=== PATIENT | female | born 1965 | race Caucasian/White ===

== ENCOUNTER 2019-02-03 18:48 | Observation (INO) ==
--- NOTE | 2019-02-03 19:14 | Emergency Department Note ---
Disposition Clinical Impression: Chest pain Qualifiers: Chest pain type: unspecified Qualified Code(s): R07.9 - Chest pain, unspecified Disposition: Admitted As Inpatient Chest Pain HPI - General Chief Complaint: ED Chest Pain Stated Complaint: chest pain Time Seen by Provider: 02/03/19 18:54 Source: patient Mode of arrival: wheelchair Limitations: no limitations Vital Signs Reviewed: Yes Nursing Notes Reviewed: Yes - History of Present Illness HPI Narrative: Patient presents to the ED with the chief complaint of chest pain and shortness breath. Patient has history of one NM with stenting past as well as congestive heart failure. She does have pacemaker and is on Coumadin, but she does not know why. States she has had increasing shortness of breath over the last week associated with orthopnea. She has both sharp pleuritic precordial chest pain as well as a heavy, dull, pressure-like sensation in the left side of her chest that radiates into her left arm. States this does not feel like her previous heart attack, but does feel like her previous episodes of CHF. No history of DVT or PE. Denies any history of malignancy. Has had a previous CVA, when she had her heart attack. She also has a vagal nerve stimulator. Denies any abdominal pain. Chest had some nausea but no vomiting or diarrhea. No new rashes. Severity scale (1-10): 0 - Related Data Home Medications Medication Instructions Recorded Confirmed Albuterol Neb [Proventil Neb] 2.5 mg IH Q4HR PRN 07/02/15 08/02/17 Amiodarone HCl [Pacerone] 200 mg PO DAILY 07/02/15 08/02/17 Azelastine HCl 137 mcg NS BID 07/02/15 08/02/17 Clopidogrel [Plavix] 75 mg PO DAILY 07/02/15 08/02/17 EPINEPHrine [Epipen 2-Pietro] 0.3 mg SQ ONCE PRN 07/02/15 08/02/17 Fluticasone Propionate Nasal 1 spray NS BID 07/02/15 08/02/17 [Flonase] Furosemide [Lasix] 80 mg PO BID 07/02/15 08/02/17 Gabapentin [Neurontin] 600 mg PO TID 07/02/15 08/02/17 Insulin Regular U-500 [HumuLIN R 25 - 200 unit SQ TID PRN 07/02/15 08/02/17 U-500] Ipratropium Neb [Atrovent Neb] 0.5 mg IH Q8H PRN 07/02/15 08/02/17 LevETIRAcetam [Keppra] 1,500 tab PO QAM 07/02/15 08/02/17 LevETIRAcetam [Keppra] 2,000 mg PO HS 07/02/15 08/02/17 Losartan Potassium 50 mg PO HS 07/02/15 08/02/17 Metoprolol Succinate [Toprol Xl] 100 mg PO DAILY 07/02/15 08/02/17 Nitroglycerin [Nitrostat] 0.4 mg SL Q5M PRN 07/02/15 08/02/17 OxyCODONE Immed Rel [Roxicodone 10 10 mg PO 5XD 07/02/15 08/02/17 MG] Pravastatin Sodium [Pravachol] 40 mg PO HS 07/02/15 08/02/17 Spironolactone 25 mg PO DAILY 07/02/15 08/02/17 Warfarin [Coumadin] 3 mg PO Q48H 07/02/15 08/02/17 Warfarin [Coumadin] 1.5 mg PO Q48H 10/15/15 08/02/17 Budesonide/Formoterol 160/4.5 2 puff IH BIDR 08/01/17 08/02/17 [Symbicort 160/4.5] Calcitriol [Rocaltrol] 0.25 mcg PO DAILY 08/01/17 08/02/17 Nitrofurantoin [Macrodantin] 50 mg PO HS 08/01/17 08/02/17 Venlafaxine [Effexor] 75 mg PO BID 08/01/17 08/02/17 Previous Rx's Medication Instructions Recorded Loratadine [Claritin] 10 mg PO DAILY #30 tablet 09/20/15 Insulin DETEMIR [Levemir Flextouch] 40 unit SQ HS #1 insuln.pen 08/04/17 levoFLOXacin [Levaquin] 500 mg PO DAILY #10 tablet 08/04/17 Allergies Allergy/AdvReac Type Severity Reaction Status Date / Time aspirin [ASA] Allergy Severe Difficulty Verified 01/01/17 04:43 Breathing Penicillins Allergy Severe Difficulty Verified 01/01/17 04:43 Swallowing nicotine [From Nicoderm CQ] Allergy Mild Rash Verified 01/01/17 04:43 Sulfa (Sulfonamide Allergy Mild Hives Verified 01/01/17 04:43 Antibiotics) sulfamethoxazole Allergy Mild Hives Verified 01/01/17 04:43 [From Bactrim] trimethoprim [From Bactrim] Allergy Mild Hives Verified 01/01/17 04:43 azithromycin AdvReac Mild Palpitation Verified 01/01/17 04:43 s cephalexin [From Keflex] AdvReac Mild Nausea Verified 01/01/17 04:43 vitamin k AdvReac Mild Palpitation Uncoded 07/02/15 14:31 s Review of Systems: As reviewed in the HPI. All other systems reviewed are negative or normal. All systems ED: reviewed and negative except as stated. Review of Systems: As Per HPI Constitutional: Denies: fever Cardiovascular: Reports: chest pain Chest Pain PMH - Past Medical History Medical history: Reports: DVT, diabetes, myocardial infarction, renal disease, seizures Surgical history: Reports: angioplasty/stent, appendectomy, breast surgery, cholecystectomy, orthopedic, other, pacemaker/AICD Psychiatric history: Reports: anxiety, depression RISK REDUCTION COUNSELOR history: Reports: no RISK REDUCTION COUNSELOR history - Social History Smoking Status: Current every day smoker Alcohol use: Reports: none Drug use: Reports: none Physical Exam CONSTITUTIONAL: [Chronically ill appearing, alert and in no acute distress, morbidly obese] EYES: [EOMI, clear conjunctiva, PERRLA] HENT: [Normocephalic, atraumatic, moist mucus membranes, normal oropharynx] NECK: [normal inspection, full ROM, trachea midline, no obvious swelling] PULMONARY: [No respiratory distress, diminished breath sounds bilateral bases, felt to be limited by body habitus, no obvious rales or wheezing CARDIOVASCULAR: [regular rate, regular rhythm, normal heart sounds, no murmurs, distal extremities are warm and well perfused] GASTROINSTESTINAL: [soft, non-tender, non-rigid, non-distended, no guarding, no rebound, normal bowel sounds] GENITOURINARY/RECTAL: [deferred] NEUROLOGIC: [Alert, oriented x3, normal speech] EXTREMITIES: [+ pedal edema, normal capillary refill] MUSCULOSKELETAL: [no gross deformities, atraumatic] SKIN: [No cyanosis, no diaphoresis, normal color, warm, no rash] PSYCHIATRIC: [normal mood and affect] - General Limitations: no limitations General appearance: alert Course Course Narrative: Patient denies any history of DVT, however, her chart. States otherwise. We will get cardiac workup and admit - Reevaluation(s) Reevaluation #1: Patient appears to have a congestive heart failure exacerbation based on her symptoms. Her BNP is as high as it has ever been. However, I do suspect it is probably falsely low due to her obesity. We did give her IV diuresis, as her oral medication has not been helping. Patient admitted the hospitalist service for further workup Vital Signs Temperature 97.9 F 02/03/19 18:58 Pulse Rate 77 02/03/19 18:58 Respiratory Rate 18 02/03/19 18:58 Blood Pressure 137/67 02/03/19 18:58 O2 Sat by Pulse Oximetry 99 02/03/19 18:58 Temperature 97.9 F 02/03/19 18:58 Pulse Rate 72 02/03/19 21:53 Respiratory Rate 18 02/03/19 21:53 Blood Pressure 146/75 02/03/19 21:53 O2 Sat by Pulse Oximetry 98 02/03/19 21:53 Oxygen Delivery Oxygen Delivery Nasal Cannula Chest Pain - Medical Records Medical records reviewed: Yes I reviewed the patient's medical records. - Lab Data Lab results reviewed: Yes I reviewed the patient's lab results. Result diagrams: 02/03/19 19:09 02/03/19 19:09 Lab Results 02/03/19 02/03/19 02/03/19 Range/Units 18:59 18:59 19:09 WBC 7.8 (4.3-11.1) K/mcL RBC 5.73 H (3.82-4.97) M/mcL Hgb 12.9 (11.5-15.4) g/dL Hct 43.9 (35.3-44.9) % MCV 76.6 L (83.0-100.0) fL MCH 22.5 L (28.0-33.3) pg MCHC 29.4 L (31.6-35.5) g/dL RDW 20.4 H (11.5-14.5) % Plt Count 258 (140-400) K/mcL MPV 10.3 (9.4-12.4) fL Immature Gran % 0.6 (0-4) % Seg Neutrophils % 67.1 % Lymphocytes % 23.4 % Monocytes % 5.0 % Eosinophils % 3.4 % Basophils % 0.5 % Neutrophils # 5.2 (1.6-8.9) K/mcL Lymphocytes # 1.8 (0.6-4.6) K/mcL Monocytes # 0.4 (0.0-1.3) K/mcL Eosinophils # 0.3 (0.0-0.6) K/mcL Basophils # 0.0 (0.0-0.2) K/mcL PT 23.3 H (9.4-12.1) Seconds INR 2.1 APTT 46.9 H (26.0-36.0) Seconds Sodium (136-145) mEq/L Potassium (3.5-5.1) mEq/L Chloride (98-107) mEq/L Carbon Dioxide (23-29) mEq/L BUN (6-20) mg/dL Creatinine (0.60-1.20) mg/dL Est GFR ( Amer) (> 60) Est GFR (Non-Af Amer) (> 60) BUN/Creatinine Ratio (6-26) Glucose (70-105) mg/dL Calculated Osmolality (280-300) Calcium (8.6-10.3) mg/dL Troponin I (< 0.04) ng/mL B-Natriuretic Peptide 111 H (Less than 100) pg/mL Urine Color (Yellow) Urine Clarity (Clear) Urine pH (5.0-8.0) pH Units Ur Specific [place] (1.010-1.025) Urine Protein (Neg-Trace) mg/dL Urine Glucose (UA) (Normal) mg/dL Urine Ketones (Negative) mg/dL Urine Blood (Negative) Urine Nitrite (Negative) Urine Bilirubin (Negative) Urine Urobilinogen (Normal) mg/dL Ur Leukocyte Esterase (Negative) Urine Microscopic RBC (0-3) per hpf Urine Microscopic WBC (0-3) per hpf Ur Squamous Epith Cells (None-Few) per lpf Urine Bacteria (None-Few) per hpf Hyaline Casts (None-Few) per lpf Ur Culture Indicated? (NO) 02/03/19 02/03/19 Range/Units 19:09 19:41 WBC (4.3-11.1) K/mcL RBC (3.82-4.97) M/mcL Hgb (11.5-15.4) g/dL Hct (35.3-44.9) % MCV (83.0-100.0) fL MCH (28.0-33.3) pg MCHC (31.6-35.5) g/dL RDW (11.5-14.5) % Plt Count (140-400) K/mcL MPV (9.4-12.4) fL Immature Gran % (0-4) % Seg Neutrophils % % Lymphocytes % % Monocytes % % Eosinophils % % Basophils % % Neutrophils # (1.6-8.9) K/mcL Lymphocytes # (0.6-4.6) K/mcL Monocytes # (0.0-1.3) K/mcL Eosinophils # (0.0-0.6) K/mcL Basophils # (0.0-0.2) K/mcL PT (9.4-12.1) Seconds INR APTT (26.0-36.0) Seconds Sodium 134 L (136-145) mEq/L Potassium 4.0 (3.5-5.1) mEq/L Chloride 95 L (98-107) mEq/L Carbon Dioxide 31 H (23-29) mEq/L BUN 12 (6-20) mg/dL Creatinine 1.30 H (0.60-1.20) mg/dL Est GFR ( Amer) 52 L (> 60) Est GFR (Non-Af Amer) 43 L (> 60) BUN/Creatinine Ratio 9 (6-26) Glucose 376 H (70-105) mg/dL Calculated Osmolality 293 (280-300) Calcium 9.4 (8.6-10.3) mg/dL Troponin I < 0.03 (< 0.04) ng/mL B-Natriuretic Peptide (Less than 100) pg/mL Urine Color Yellow (Yellow) Urine Clarity Clear (Clear) Urine pH 7.0 (5.0-8.0) pH Units Ur Specific [place] 1.014 (1.010-1.025) Urine Protein 30 H (Neg-Trace) mg/dL Urine Glucose (UA) >=1000 H (Normal) mg/dL Urine Ketones Negative (Negative) mg/dL Urine Blood Large H (Negative) Urine Nitrite Negative (Negative) Urine Bilirubin Negative (Negative) Urine Urobilinogen Normal (Normal) mg/dL Ur Leukocyte Esterase Negative (Negative) Urine Microscopic RBC TNTC H (0-3) per hpf Urine Microscopic WBC 5-15 H (0-3) per hpf Ur Squamous Epith Cells Many H (None-Few) per lpf Urine Bacteria None Seen (None-Few) per hpf Hyaline Casts None Seen (None-Few) per lpf Ur Culture Indicated? NO (NO) - Radiology Data Radiology results reviewed: Yes I reviewed the patient's radiology results. - EKG Data EKG attestation: Yes I reviewed and interpreted this EKG. EKG results narrative: Sinus tach, rate 100, normal axis, nonspecific ST segment changes but no acute ischemic change, QTC 449 Critical Care Time Critical Care Time: No
[2019-02-03 19:33] LABS: Basophils % 0.5 %; Eosinophils # 0.3 K/mcL (0.0-0.6); Eosinophils % 3.4 %; Hematocrit 43.9 % (35.3-44.9); Hemoglobin 12.9 g/dL (11.5-15.4); Immature Granulocytes % 0.6 % (0-4); Lymphocytes # 1.8 K/mcL (0.6-4.6); Lymphocytes % 23.4 %; Mean Corpuscular HGB Conc 29.4 g/dL (31.6-35.5); Mean Corpuscular Hemoglobin 22.5 pg (28.0-33.3); Mean Corpuscular Volume 76.6 fL (83.0-100.0); Mean Platelet Volume 10.3 fL (9.4-12.4); Monocytes # 0.4 K/mcL (0.0-1.3); Neutrophils # 5.2 K/mcL (1.6-8.9); Platelet Count 258 K/mcL (140-400); Red Blood Count 5.73 M/mcL (3.82-4.97); Red Cell Distribution Width 20.4 % (11.5-14.5); Segmented Neutrophils % 67.1 %
[2019-02-03 19:43] LABS: INR 2.1; Prothrombin Time 23.3 Seconds (9.4-12.1)
[2019-02-03 19:46] LABS: Activated Partial Thrombo Time 46.9 Seconds (26.0-36.0)
[2019-02-03 19:53] LABS: Bilirubin,Urine Negative (Negative); Blood,Urine Large (Negative); Clarity,Urine Clear (Clear); Color,Urine Yellow (Yellow); Glucose,Urine (UA) >=1000 mg/dL (Normal); Ketones,Urine Negative (Negative); Leukocyte Esterase,Urine Negative (Negative); Nitrite,Urine Negative (Negative); Protein,Urine 30 mg/dL (Neg-Trace); Specific Gravity,Urine 1.014 (1.010-1.025); Urobilinogen,Urine Normal (Normal)
[2019-02-03 19:54] LABS: Bacteria,Urine None Seen per hpf (None-Few); Hyaline Casts,Urine None Seen per lpf (None-Few); RBC,Urine TNTC per hpf (0-3); Squamous Epithelial Cell,Urine Many per lpf (None-Few)
[2019-02-03 19:54] LABS: BUN/Creatinine Ratio 9 (6-26); Blood Urea Nitrogen 12 mg/dL (6-20); Calcium 9.4 mg/dL (8.6-10.3); Carbon Dioxide 31 mEq/L (23-29); Chloride 95 mEq/L (98-107); Glucose 376 mg/dL (70-105); Osmolality,Calculated 293 (280-300); Sodium 134 mEq/L (136-145); eGFR For Non-African Americans 43 (> 60)
[2019-02-03 19:55] LABS: Troponin I < 0.03 ng/mL (< 0.04)
[2019-02-03] MEDS ORDERED: Ondansetron 4 MG/2 ML VIAL IVP ONE (20:17)
[2019-02-03] MEDS ORDERED: Furosemide 40 MG/4 ML VIAL IVP ONE (20:49)
--- NOTE | 2019-02-03 21:17 | Emergency Department Note ---
Disposition Clinical Impression: Chest pain Disposition: Admitted As Inpatient Time of Disposition: 21:17 General Adult HPI - General Chief complaint: ED Chest Pain Stated complaint: chest pain Time Seen by Provider: 02/03/19 18:54 Source: patient Mode of arrival: wheelchair Limitations: no limitations - History of Present Illness Pain Scale: 0 - Related Data Home Medications Medication Instructions Recorded Confirmed Albuterol Neb [Proventil Neb] 2.5 mg IH Q4HR PRN 07/02/15 08/02/17 Amiodarone HCl [Pacerone] 200 mg PO DAILY 07/02/15 08/02/17 Azelastine HCl 137 mcg NS BID 07/02/15 08/02/17 Clopidogrel [Plavix] 75 mg PO DAILY 07/02/15 08/02/17 EPINEPHrine [Epipen 2-Pietro] 0.3 mg SQ ONCE PRN 07/02/15 08/02/17 Fluticasone Propionate Nasal 1 spray NS BID 07/02/15 08/02/17 [Flonase] Furosemide [Lasix] 80 mg PO BID 07/02/15 08/02/17 Gabapentin [Neurontin] 600 mg PO TID 07/02/15 08/02/17 Insulin Regular U-500 [HumuLIN R 25 - 200 unit SQ TID PRN 07/02/15 08/02/17 U-500] Ipratropium Neb [Atrovent Neb] 0.5 mg IH Q8H PRN 07/02/15 08/02/17 LevETIRAcetam [Keppra] 1,500 tab PO QAM 07/02/15 08/02/17 LevETIRAcetam [Keppra] 2,000 mg PO HS 07/02/15 08/02/17 Losartan Potassium 50 mg PO HS 07/02/15 08/02/17 Metoprolol Succinate [Toprol Xl] 100 mg PO DAILY 07/02/15 08/02/17 Nitroglycerin [Nitrostat] 0.4 mg SL Q5M PRN 07/02/15 08/02/17 OxyCODONE Immed Rel [Roxicodone 10 10 mg PO 5XD 07/02/15 08/02/17 MG] Pravastatin Sodium [Pravachol] 40 mg PO HS 07/02/15 08/02/17 Spironolactone 25 mg PO DAILY 07/02/15 08/02/17 Warfarin [Coumadin] 3 mg PO Q48H 07/02/15 08/02/17 Warfarin [Coumadin] 1.5 mg PO Q48H 10/15/15 08/02/17 Budesonide/Formoterol 160/4.5 2 puff IH BIDR 08/01/17 08/02/17 [Symbicort 160/4.5] Calcitriol [Rocaltrol] 0.25 mcg PO DAILY 08/01/17 08/02/17 Nitrofurantoin [Macrodantin] 50 mg PO HS 08/01/17 08/02/17 Venlafaxine [Effexor] 75 mg PO BID 08/01/17 08/02/17 Previous Rx's Medication Instructions Recorded Loratadine [Claritin] 10 mg PO DAILY #30 tablet 09/20/15 Insulin DETEMIR [Levemir Flextouch] 40 unit SQ HS #1 insuln.pen 08/04/17 levoFLOXacin [Levaquin] 500 mg PO DAILY #10 tablet 08/04/17 Allergies Allergy/AdvReac Type Severity Reaction Status Date / Time aspirin [ASA] Allergy Severe Difficulty Verified 01/01/17 04:43 Breathing Penicillins Allergy Severe Difficulty Verified 01/01/17 04:43 Swallowing nicotine [From Nicoderm CQ] Allergy Mild Rash Verified 01/01/17 04:43 Sulfa (Sulfonamide Allergy Mild Hives Verified 01/01/17 04:43 Antibiotics) sulfamethoxazole Allergy Mild Hives Verified 01/01/17 04:43 [From Bactrim] trimethoprim [From Bactrim] Allergy Mild Hives Verified 01/01/17 04:43 azithromycin AdvReac Mild Palpitation Verified 01/01/17 04:43 s cephalexin [From Keflex] AdvReac Mild Nausea Verified 01/01/17 04:43 vitamin k AdvReac Mild Palpitation Uncoded 07/02/15 14:31 s Constitutional: Denies: fever Cardiovascular: Reports: chest pain Past Medical History - Past Medical History Medical history: Reports: DVT, diabetes, myocardial infarction, renal disease, seizures Surgical history: Reports: angioplasty/stent, appendectomy, breast surgery, cholecystectomy, orthopedic, other, pacemaker/AICD Psychiatric history: Reports: anxiety, depression FRAMING SPECIALIST history: Reports: no FRAMING SPECIALIST history - Social History Smoking Status: Current every day smoker Smokeless Tobacco Status: No Alcohol use: Reports: none Drug use: Reports: none Physical Exam - General Limitations: no limitations General appearance: alert Course Vital Signs Temperature 97.9 F 02/03/19 18:58 Pulse Rate 77 02/03/19 18:58 Respiratory Rate 18 02/03/19 18:58 Blood Pressure 137/67 02/03/19 18:58 O2 Sat by Pulse Oximetry 99 02/03/19 18:58 Temperature 97.9 F 02/03/19 18:58 Pulse Rate 72 02/03/19 22:42 Respiratory Rate 20 02/03/19 22:42 Blood Pressure 161/74 02/03/19 22:42 O2 Sat by Pulse Oximetry 96 02/03/19 22:42 Oxygen Delivery Oxygen Delivery Nasal Cannula Medical Decision Making - Lab Data Result diagrams: 02/03/19 19:09 02/03/19 19:09 Lab Results 02/03/19 02/03/19 02/03/19 Range/Units 18:59 18:59 19:09 WBC 7.8 (4.3-11.1) K/mcL RBC 5.73 H (3.82-4.97) M/mcL Hgb 12.9 (11.5-15.4) g/dL Hct 43.9 (35.3-44.9) % MCV 76.6 L (83.0-100.0) fL MCH 22.5 L (28.0-33.3) pg MCHC 29.4 L (31.6-35.5) g/dL RDW 20.4 H (11.5-14.5) % Plt Count 258 (140-400) K/mcL MPV 10.3 (9.4-12.4) fL Immature Gran % 0.6 (0-4) % Seg Neutrophils % 67.1 % Lymphocytes % 23.4 % Monocytes % 5.0 % Eosinophils % 3.4 % Basophils % 0.5 % Neutrophils # 5.2 (1.6-8.9) K/mcL Lymphocytes # 1.8 (0.6-4.6) K/mcL Monocytes # 0.4 (0.0-1.3) K/mcL Eosinophils # 0.3 (0.0-0.6) K/mcL Basophils # 0.0 (0.0-0.2) K/mcL PT 23.3 H (9.4-12.1) Seconds INR 2.1 APTT 46.9 H (26.0-36.0) Seconds Sodium (136-145) mEq/L Potassium (3.5-5.1) mEq/L Chloride (98-107) mEq/L Carbon Dioxide (23-29) mEq/L BUN (6-20) mg/dL Creatinine (0.60-1.20) mg/dL Est GFR ( Amer) (> 60) Est GFR (Non-Af Amer) (> 60) BUN/Creatinine Ratio (6-26) Glucose (70-105) mg/dL Calculated Osmolality (280-300) Calcium (8.6-10.3) mg/dL Troponin I (< 0.04) ng/mL B-Natriuretic Peptide 111 H (Less than 100) pg/mL Urine Color (Yellow) Urine Clarity (Clear) Urine pH (5.0-8.0) pH Units Ur Specific [place] (1.010-1.025) Urine Protein (Neg-Trace) mg/dL Urine Glucose (UA) (Normal) mg/dL Urine Ketones (Negative) mg/dL Urine Blood (Negative) Urine Nitrite (Negative) Urine Bilirubin (Negative) Urine Urobilinogen (Normal) mg/dL Ur Leukocyte Esterase (Negative) Urine Microscopic RBC (0-3) per hpf Urine Microscopic WBC (0-3) per hpf Ur Squamous Epith Cells (None-Few) per lpf Urine Bacteria (None-Few) per hpf Hyaline Casts (None-Few) per lpf Ur Culture Indicated? (NO) 02/03/19 02/03/19 Range/Units 19:09 19:41 WBC (4.3-11.1) K/mcL RBC (3.82-4.97) M/mcL Hgb (11.5-15.4) g/dL Hct (35.3-44.9) % MCV (83.0-100.0) fL MCH (28.0-33.3) pg MCHC (31.6-35.5) g/dL RDW (11.5-14.5) % Plt Count (140-400) K/mcL MPV (9.4-12.4) fL Immature Gran % (0-4) % Seg Neutrophils % % Lymphocytes % % Monocytes % % Eosinophils % % Basophils % % Neutrophils # (1.6-8.9) K/mcL Lymphocytes # (0.6-4.6) K/mcL Monocytes # (0.0-1.3) K/mcL Eosinophils # (0.0-0.6) K/mcL Basophils # (0.0-0.2) K/mcL PT (9.4-12.1) Seconds INR APTT (26.0-36.0) Seconds Sodium 134 L (136-145) mEq/L Potassium 4.0 (3.5-5.1) mEq/L Chloride 95 L (98-107) mEq/L Carbon Dioxide 31 H (23-29) mEq/L BUN 12 (6-20) mg/dL Creatinine 1.30 H (0.60-1.20) mg/dL Est GFR ( Amer) 52 L (> 60) Est GFR (Non-Af Amer) 43 L (> 60) BUN/Creatinine Ratio 9 (6-26) Glucose 376 H (70-105) mg/dL Calculated Osmolality 293 (280-300) Calcium 9.4 (8.6-10.3) mg/dL Troponin I < 0.03 (< 0.04) ng/mL B-Natriuretic Peptide (Less than 100) pg/mL Urine Color Yellow (Yellow) Urine Clarity Clear (Clear) Urine pH 7.0 (5.0-8.0) pH Units Ur Specific [place] 1.014 (1.010-1.025) Urine Protein 30 H (Neg-Trace) mg/dL Urine Glucose (UA) >=1000 H (Normal) mg/dL Urine Ketones Negative (Negative) mg/dL Urine Blood Large H (Negative) Urine Nitrite Negative (Negative) Urine Bilirubin Negative (Negative) Urine Urobilinogen Normal (Normal) mg/dL Ur Leukocyte Esterase Negative (Negative) Urine Microscopic RBC TNTC H (0-3) per hpf Urine Microscopic WBC 5-15 H (0-3) per hpf Ur Squamous Epith Cells Many H (None-Few) per lpf Urine Bacteria None Seen (None-Few) per hpf Hyaline Casts None Seen (None-Few) per lpf Ur Culture Indicated? NO (NO) Attestation Statement - Attestation Attestation: I examined this patient and my medical decision-making was reviewed with the Resident Physician. I agree with the documented findings, disposition and treatment plan as described except to the extent set forth below. Patient presents to emergency department chief complaint shortness of breath. Orthopnea. Chest tightness it feels like prior decompensated heart failure. Patient is a paraplegic. She also has a vagal nerve stimulator from a seizure disorder. On exam she is in no distress. Lung sounds diminished in bases. Heart regular rate and rhythm. Plan. Cardiac workup. BNP is slightly elevated above baseline. Lasix and admit. No aspirin given secondary to allergy. Chest X-Ray 02/03/19 18:59 IMPRESSION: No acute process. D/ / Carlos Diaz MD / Carlos Diaz MD Interpreting Provider: Carlos Diaz MD
[2019-02-03] MEDS ORDERED: Metoclopramide 10 MG/2 ML VIAL IVP ONE (21:48)
[2019-02-04] MEDS ORDERED: Naloxone 0.4 MG/ML INJ IVP PRN (01:34)
[2019-02-04] MEDS ORDERED: *HR* Dextrose 50 % in Water (Syg) 50 ML SYRINGE IVP PRN (02:15)
[2019-02-04] MEDS ORDERED: Dextrose 4 GM Chewable Tablets PO PRN ×2 (02:15)
[2019-02-04] MEDS ORDERED: Dextrose Gel 15 GM/37.5 ML TUBE PO PRN ×2 (02:15)
[2019-02-04] MEDS ORDERED: D5% in Water 1,000 ML IVC PRN (02:15)
[2019-02-04 02:21] LABS: Hematocrit 42.2 % (35.3-44.9); Hemoglobin 12.5 g/dL (11.5-15.4); Mean Corpuscular HGB Conc 29.6 g/dL (31.6-35.5); Mean Corpuscular Hemoglobin 22.6 pg (28.0-33.3); Mean Corpuscular Volume 76.4 fL (83.0-100.0); Mean Platelet Volume 10.5 fL (9.4-12.4); Platelet Count 290 K/mcL (140-400); Red Blood Count 5.52 M/mcL (3.82-4.97); Red Cell Distribution Width 20.6 % (11.5-14.5)
[2019-02-04 02:25] LABS: Calcium 9.4 mg/dL (8.6-10.3); Potassium 3.4 mEq/L (3.5-5.1)
[2019-02-04 02:29] LABS: Prothrombin Time 22.3 Seconds (9.4-12.1)
--- NOTE | 2019-02-04 03:04 | Internal Med History&Physical ---
Date of Encounter: 02/04/19 Time of Encounter: 01:40 Internal Medicine - H&P: HPI Chief complaint: Chest pain Admitted From: Emergency Dept Plans for Post Hospital Care: Home History of present illness: Ms. Loja is a 53 year old female Patient presented to the ER for chest pain and shortness of breath. She has a history of CHF, vagal nerve stimulator, paraplegia and [place] that required a stent. She also has a pacemaker and takes coumadin for history of stroke. She describes her chest pain as pressure and sharp that radiates into her left arm. This pain is not like her chest pain she experienced during her first heart attack. In the ER patient's vital signs were within normal limits. CBC and BMP were also within normal limits aside from an elevated glucose of 376 and creatinine of 1.30. BNP was 111, INR was 2.1, and initial troponin was undetectable. EKG showed a rate of 100, with no ischemic changes. Chest x-ray showed no acute process. She was admitted to the hospital for further management. Upon my evaluation patient is resting comfortably in the hospital bed in no acute distress. She confirms the above history, stating that her chest pain has been there off and on for the past 2 days. She denies abdominal pain, diarrhea and constipation. She has had some nausea but no vomiting. She also has not eaten for the past 2 days due to the nausea. Currently she is not feeling nauseous. She is a full code. Past Med Surg Social Fam HX - Past Medical History Medical history: DVT, diabetes, myocardial infarction, renal disease, seizures Additional medical history: kyler nerve stimulator Psychiatric history: anxiety, depression - Past Surgical History Surgical History: angioplasty/stent, appendectomy, breast surgery, cholecystectomy, orthopedic, other, pacemaker/AICD Additional surgical history: mrsa - Social History Smoking Status: Current every day smoker Smokeless Tobacco Status: No Alcohol use: none Drug use: none - Family History Mother Living Status: Still Living Hx Family Cardiac Disorders: No Hx Family Respiratory Disorders: No Hx Family Cancer: Yes Hx Family GI Disorders: No Hx Family Genitourinary Disorders: No Hx Family Endocrine Disorder: Yes Hx Family Musculoskeletal Disorders: No Hx Family Neuromuscular Disorders: No Hx Family Neurologic Disorders: No Hx Family HEENT Disorders: No Hx Family Autoimmune Disorders: No Hx Family Reproductive Disorders: No Hx Family Psychosocial Disorders: No Hx Family Medical Disorders: No Father Living Status: Hx Family Cardiac Disorders: Yes ([place]) Hx Family Respiratory Disorders: No Hx Family Cancer: No Hx Family GI Disorders: No Hx Family Genitourinary Disorders: No Hx Family Endocrine Disorder: No Hx Family Musculoskeletal Disorders: No Hx Family Neuromuscular Disorders: No Hx Family Neurologic Disorders: No Hx Family HEENT Disorders: No Hx Family Autoimmune Disorders: No Hx Family Reproductive Disorders: No Hx Family Psychosocial Disorders: No Hx Family Medical Disorders: No Internal Medicine - H&P: Meds Albuterol Neb [Proventil Neb] 2.5 mg IH Q4HR PRN 07/02/15 [History] Amiodarone HCl [Pacerone] 200 mg PO DAILY 07/02/15 [History] Azelastine HCl 137 mcg NS BID 07/02/15 [History] Clopidogrel [Plavix] 75 mg PO DAILY 07/02/15 [History] EPINEPHrine [Epipen 2-Pietro] 0.3 mg SQ ONCE PRN 07/02/15 [History] Fluticasone Propionate Nasal [Flonase] 1 spray NS BID 07/02/15 [History] Furosemide [Lasix] 80 mg PO BID 07/02/15 [History] Gabapentin [Neurontin] 600 mg PO TID 07/02/15 [History] Insulin Regular U-500 [HumuLIN R U-500] 25 - 200 unit SQ TID PRN 07/02/15 [History] Ipratropium Neb [Atrovent Neb] 0.5 mg IH Q8H PRN 07/02/15 [History] LevETIRAcetam [Keppra] 1,500 tab PO QAM 07/02/15 [History] LevETIRAcetam [Keppra] 2,000 mg PO HS 07/02/15 [History] Losartan Potassium 50 mg PO HS 07/02/15 [History] Metoprolol Succinate [Toprol Xl] 100 mg PO DAILY 07/02/15 [History] Nitroglycerin [Nitrostat] 0.4 mg SL Q5M PRN 07/02/15 [History] OxyCODONE Immed Rel [Roxicodone 10 MG] 10 mg PO 5XD 07/02/15 [History] Pravastatin Sodium [Pravachol] 40 mg PO HS 07/02/15 [History] Spironolactone 25 mg PO DAILY 07/02/15 [History] Warfarin [Coumadin] 3 mg PO Q48H 07/02/15 [History] Loratadine [Claritin] 10 mg PO DAILY #30 tablet 09/20/15 [Rx] Warfarin [Coumadin] 1.5 mg PO Q48H 10/15/15 [History] Budesonide/Formoterol 160/4.5 [Symbicort 160/4.5] 2 puff IH BIDR 08/01/17 [History] Calcitriol [Rocaltrol] 0.25 mcg PO DAILY 08/01/17 [History] Nitrofurantoin [Macrodantin] 50 mg PO HS 08/01/17 [History] Venlafaxine [Effexor] 75 mg PO BID 08/01/17 [History] Insulin DETEMIR [Levemir Flextouch] 40 unit SQ HS #1 insuln.pen 08/04/17 [Rx] levoFLOXacin [Levaquin] 500 mg PO DAILY #10 tablet 08/04/17 [Rx] Allergy/AdvReac Type Severity Reaction Status Date / Time aspirin [ASA] Allergy Severe Difficulty Verified 01/01/17 04:43 Breathing Penicillins Allergy Severe Difficulty Verified 01/01/17 04:43 Swallowing nicotine [From Nicoderm CQ] Allergy Mild Rash Verified 01/01/17 04:43 Sulfa (Sulfonamide Allergy Mild Hives Verified 01/01/17 04:43 Antibiotics) sulfamethoxazole Allergy Mild Hives Verified 01/01/17 04:43 [From Bactrim] trimethoprim [From Bactrim] Allergy Mild Hives Verified 01/01/17 04:43 azithromycin AdvReac Mild Palpitation Verified 01/01/17 04:43 s cephalexin [From Keflex] AdvReac Mild Nausea Verified 01/01/17 04:43 vitamin k AdvReac Mild Palpitation Uncoded 07/02/15 14:31 s All Systems PM: A 10-system review of systems was performed and is negative for pertinent findings except as documented above in the HPI. - Constitutional Vitals: Temp Pulse Resp BP Pulse Ox 98.2 F 72 20 114/63 97 02/04/19 01:06 02/04/19 01:06 02/04/19 01:06 02/04/19 01:06 02/04/19 01:06 General appearance: Present: cooperative, A&O X 3, pleasant, no acute distress, answers questions appropriately Exam: - - Head Head exam: Present: normal inspection - Eye Eye exam: Present: EOMI, normal appearance - Respiratory Respiratory exam: Present: CTAB. Absent: rales, respiratory distress, rhonchi, wheezes - Cardiovascular Cardiovascular exam: Present: RRR. Absent: diastolic murmur, systolic murmur - GI/Abdominal GI/Abdominal exam: Present: normal bowel sounds, soft. Absent: tenderness - Extremities Exam Extremities exam: Present: warm, radial pulses palpable and symmetrical. Absent: pedal edema, tenderness Additional comments: Paraplegic - Neurological Exam Neurological exam: Present: strengths equal and symetr throughout. Absent: no focal deficits, facial droop, speech deficit Additional comments: Paraplegic - Skin Skin exam: Present: dry, normal color, warm Internal Med - H&P Results - Labs CBC & Chem 7: 02/04/19 01:54 02/04/19 01:54 Labs: Short CBC 02/03/19 02/04/19 Range/Units 19:09 01:54 WBC 7.8 10.1 (4.3-11.1) K/mcL Hgb 12.9 12.5 (11.5-15.4) g/dL Hct 43.9 42.2 (35.3-44.9) % Plt Count 258 290 (140-400) K/mcL Neutrophils # 5.2 (1.6-8.9) K/mcL BMP 02/03/19 02/04/19 19:09 01:54 Sodium 134 L 140 Potassium 4.0 3.4 L Chloride 95 L 99 Carbon Dioxide 31 H 35 H BUN 12 12 Creatinine 1.30 H 1.18 Glucose 376 H 53 L Calcium 9.4 9.4 Cardiac Enzymes 02/03/19 02/04/19 Range/Units 19:09 01:54 Troponin I < 0.03 < 0.03 (< 0.04) ng/mL Urine 02/03/19 Range/Units 19:41 Urine Color Yellow (Yellow) Urine Clarity Clear (Clear) Urine pH 7.0 (5.0-8.0) pH Units Ur Specific [place] 1.014 (1.010-1.025) Urine Protein 30 H (Neg-Trace) mg/dL Urine Glucose (UA) >=1000 H (Normal) mg/dL - Impressions ITS Impressions Chest X-Ray 02/03/19 18:59 IMPRESSION: No acute process. D/ / Carlos Diaz MD / Carlos Diaz MD Interpreting Provider: Carlos Diaz MD - Assessment and Plan (1) Chest pain Current Visit: Yes Status: Acute Assessment and plan: Patient's chest pain has nearly resolved. Initial troponin is undetectable. She states that she has not seen a salesforce consultant in over 3 years due to loss of her insurance coverage. No previous echo or stress test in our system. Cardiac monitoring Continue to trend troponins Echocardiogram in the morning Would benefit from cardiology referral at discharge considering her cardiac hi story and pace maker. Breathing treatments as needed Qualifiers: Chest pain type: unspecified Qualified Code(s): R07.9 - Chest pain, unspecified (2) CHF (congestive heart failure) Current Visit: Yes Status: Acute Assessment and plan: Elevated BNP but clear breath sounds on exam. Patient received a dose of lasix in the ER. Continue lasix Strict I&Os Daily weights Echocardiogram in the morning Qualifiers: Heart failure type: unspecified Heart failure chronicity: unspecified Qualified Code(s): I50.9 - Heart failure, unspecified (3) Diabetes mellitus Current Visit: No Status: Chronic Assessment and plan: Patient's blood sugar was 53 on check when she was on the floor, 376 in the ER. Patient has not eaten much last few days. Patient given orange juice and her blood sugars improved to 95. She is a poorly controlled diabetic, takes U-500 at home. 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
[2019-02-04] MEDS ORDERED: Ipratropium/Albuterol Neb 3 ML IH PRN (03:40)
[2019-02-04] MEDS: Insulin LISPRO 300 UNITS/3 ML VIAL SQ SCH ×3 (06:13→18:47)
[2019-02-04] MEDS: Ondansetron 4 MG/2 ML VIAL IVP PRN ×2 (06:44→16:11)
[2019-02-04] MEDS ORDERED: Furosemide 40 MG/4 ML VIAL IVP SCH (09:00)
[2019-02-04] MEDS ORDERED: Nitroglycerin 0.4 MG TAB.SUBL SL PRN (09:45)
--- NOTE | 2019-02-04 10:00 | Internal Med Progress Note ---
Hospitalist Progress Note - Encounter Date of Encounter: 02/04/19 Time of Encounter: 09:57 - Subjective Interval History: No acute events. - Exam Vitals: Temp Pulse Resp BP Pulse Ox 98.4 F 72 19 114/68 90 02/04/19 08:37 02/04/19 08:37 02/04/19 08:37 02/04/19 08:37 02/04/19 08:37 Exam: Gen: NAD, AAO x3. ENT: MMM CVS: RRR Lungs: CTAB Abd: Soft, NT/ND Ext: no edema. Skin: warm, dry. - Assessment and Plan (1) Chest pain Current Visit: Yes Status: Acute Assessment and Plan: Trop negative x2, no acute EKG findings. Echocardiogram pending. Given patient history and description, will do stress test. (2) CHF (congestive heart failure) Current Visit: Yes Status: Acute Assessment and Plan: No acute exacerbation. Resume home medications. (3) CAD (coronary artery disease) Current Visit: No Status: Chronic (4) COPD (chronic obstructive pulmonary disease) Current Visit: No Status: Chronic (5) Diabetes mellitus Current Visit: No Status: Chronic (6) Essential hypertension Current Visit: No Status: Chronic Assessment and Plan: Resume home medications when med rec complete. (7) Paraplegia Current Visit: No Status: Chronic (8) Seizure disorder Current Visit: No Status: Chronic Assessment and Plan: Resume Keppra (9) DVT prophylaxis Current Visit: No Status: Acute - Time Spent with Patient Total time spent is greater than 50% in coordination of care (as documented) at patient's floor/unit and/or counseling patient: Internal Medicine: Result - Labs CBC & Chem 7: 02/04/19 01:54 02/04/19 01:54 Labs: Short CBC 02/03/19 02/04/19 Range/Units 19:09 01:54 WBC 7.8 10.1 (4.3-11.1) K/mcL Hgb 12.9 12.5 (11.5-15.4) g/dL Hct 43.9 42.2 (35.3-44.9) % Plt Count 258 290 (140-400) K/mcL Neutrophils # 5.2 (1.6-8.9) K/mcL BMP 02/03/19 02/04/19 19:09 01:54 Sodium 134 L 140 Potassium 4.0 3.4 L Chloride 95 L 99 Carbon Dioxide 31 H 35 H BUN 12 12 Creatinine 1.30 H 1.18 Glucose 376 H 53 L Calcium 9.4 9.4 Cardiac Enzymes 02/03/19 02/04/19 02/04/19 Range/Units 19:09 01:54 08:51 Troponin I < 0.03 < 0.03 < 0.03 (< 0.04) ng/mL Urine 02/03/19 Range/Units 19:41 Urine Color Yellow (Yellow) Urine Clarity Clear (Clear) Urine pH 7.0 (5.0-8.0) pH Units Ur Specific [place] 1.014 (1.010-1.025) Urine Protein 30 H (Neg-Trace) mg/dL Urine Glucose (UA) >=1000 H (Normal) mg/dL - ABG Interpretation ABG results: PT/INR, D-dimer PT 22.3 Seconds (9.4-12.1) H 02/04/19 01:54 - Impressions Impressions Chest X-Ray 02/03/19 18:59 IMPRESSION: No acute process. D/ / Carlos Diaz MD / Carlos Diaz MD Interpreting Provider: Carlos Diaz MD Consult Discharge Plan - Plan Referrals: Lisa Branham, CRIMINAL COURT JUDGE [Primary Care Provider] - (1) Chest pain Qualifiers: Chest pain type: unspecified Qualified Code(s): R07.9 - Chest pain, unspecified (2) CHF (congestive heart failure) Qualifiers: Qualified Code(s): I50.9 - Heart failure, unspecified (3) CAD (coronary artery disease) Qualifiers: Coronary Disease-Associated Artery/Lesion type: [place] artery [place] vs. transplanted heart: [place] heart Associated angina: without angina Qualified Code(s): I25.10 - Atherosclerotic heart disease of [place] coronary artery without angina pectoris (4) COPD (chronic obstructive pulmonary disease) Qualifiers: COPD type: unspecified COPD Qualified Code(s): J44.9 - Chronic obstructive pulmonary disease, unspecified (5) Diabetes mellitus Qualifiers: Diabetes mellitus type: type 2 Diabetes mellitus group home insulin use: with group home use Diabetes mellitus complication status: with hypoglycemia Diabetes mellitus complication detail: without coma Qualified Code(s): E11.649 - Type 2 diabetes mellitus with hypoglycemia without coma; Z79.4 - shelter (current) use of insulin
[2019-02-04] MEDS ORDERED: Regadenoson 0.4 MG/5 ML SYRINGE IVP ONE (11:05)
[2019-02-04] MEDS ORDERED: Insulin LISPRO 300 UNITS/3 ML VIAL SQ SCH ×4 (14:00→21:00)
[2019-02-04] MEDS ORDERED: Insulin LISPRO 300 UNITS/3 ML VIAL SQ ONE (14:06)
[2019-02-04] MEDS ORDERED: Ipratropium Neb 0.5 MG NEBULIZER IH PRN (17:16)
[2019-02-04] MEDS ORDERED: *HR* EPINEPHrine 30 MG/30 ML MDV SQ PRN (17:16)
[2019-02-04] MEDS ORDERED: *HR* Promethazine 25 MG/ML VIAL IVP PRN (17:39)
[2019-02-04] MEDS ORDERED: Warfarin perPT PO PRN (18:00)
[2019-02-04] MEDS ORDERED: *HR* Warfarin 3 MG TABLET PO ONE (18:00)
[2019-02-04] MEDS ORDERED: 0.9 % Sodium Chloride 500 ML IVC SCH (18:15)
[2019-02-04] MEDS: *HR* OxyCODONE Immed Rel 5 MG TABLET PO PRN ×2 (18:49→23:46)
[2019-02-04] MEDS: Gabapentin 300 MG CAPSULE PO SCH (20:30)
[2019-02-04] MEDS: Fluticasone Propionate Nasal 50 MCG/SPRAY BOTTLE NS SCH (20:40)
[2019-02-04] MEDS ORDERED: levETIRAcetam 250 MG TABLET PO SCH (21:00)
[2019-02-04] MEDS: Budesonide/Formoterol 160/4.5 1 PUFF INH IH SCH (22:43)
[2019-02-05 05:17] LABS: Basophils # 0.1 K/mcL (0.0-0.2); Basophils % 0.6 %; Eosinophils # 0.3 K/mcL (0.0-0.6); Eosinophils % 3.2 %; Hematocrit 38.9 % (35.3-44.9); Hemoglobin 11.3 g/dL (11.5-15.4); Immature Granulocytes % 0.4 % (0-4); Lymphocytes # 2.3 K/mcL (0.6-4.6); Lymphocytes % 27.7 %; Mean Corpuscular Hemoglobin 22.4 pg (28.0-33.3); Mean Platelet Volume 10.5 fL (9.4-12.4); Monocytes # 0.6 K/mcL (0.0-1.3); Monocytes % 6.7 %; Neutrophils # 5.1 K/mcL (1.6-8.9); Platelet Count 252 K/mcL (140-400); Red Blood Count 5.05 M/mcL (3.82-4.97); Red Cell Distribution Width 20.6 % (11.5-14.5); Segmented Neutrophils % 61.4 %
[2019-02-05 05:24] LABS: INR 1.8; Prothrombin Time 20.5 Seconds (9.4-12.1)
[2019-02-05 05:37] LABS: Calcium 9.1 mg/dL (8.6-10.3); Potassium 3.9 mEq/L (3.5-5.1)
[2019-02-05] MEDS ORDERED: Metoprolol XL (24 HR) Succ 50 MG TAB.ER.24H PO SCH (09:00)
[2019-02-05] MEDS ORDERED: levETIRAcetam 250 MG TABLET PO SCH (09:00)
[2019-02-05] MEDS ORDERED: *HR* Amiodarone 200 MG TABLET PO SCH (09:00)
[2019-02-05] MEDS ORDERED: Spironolactone 25 MG TABLET PO SCH (09:00)
[2019-02-05] MEDS: Budesonide/Formoterol 160/4.5 1 PUFF INH IH SCH (10:16)
[2019-02-05] MEDS ORDERED: Insulin DETEMIR 100 UNIT/ML X5UNITS SQ SCH (11:30)
[2019-02-05 11:51] VITALS: BP 142/79
[2019-02-05] MEDS: Gabapentin 300 MG CAPSULE PO SCH ×2 (11:56→15:16)
[2019-02-05] MEDS: Insulin LISPRO 300 UNITS/3 ML VIAL SQ SCH ×2 (11:57→15:17)
[2019-02-05] MEDS: Fluticasone Propionate Nasal 50 MCG/SPRAY BOTTLE NS SCH (11:57)
[2019-02-05] MEDS: *HR* OxyCODONE Immed Rel 5 MG TABLET PO PRN (12:09)
--- NOTE | 2019-02-05 13:31 | Discharge Summary ---
- NOTES TO OUTPATIENT PROVIDER Notes to Outpatient Provider: PCP in 5 to 7 days. Cardiology out pt Orders not resulted at time of discharge: Pending orders 02/04/19 10:04 NM alec perf SPECT multi [NM] Routine 02/06/19 04:00 PT/INR [Prothrombin Time INR] [COAG] AM 0400 02/07/19 04:00 PT/INR [Prothrombin Time INR] [COAG] AM 0400 02/08/19 04:00 PT/INR [Prothrombin Time INR] [COAG] AM 0400 02/09/19 04:00 PT/INR [Prothrombin Time INR] [COAG] AM 040 Date of Encounter: 02/05/19 Time of Encounter: 13:29 - Discharge Diagnosis (1) Chest pain Priority: Primary Status: Acute Assessment and Plan: Trop negative x3, no acute EKG findings. Echocardiogram reviewed. CXR no acute process. Given patient history and description, stress test was done. Stress test abnormal but no new changes from previous stress test. Discussed results with cardiology and states f/u out pt. Pt states "I'm feeling great!" Denies CP or SOB. Denies fever, chills, N/V or abdominal pain. Qualifiers: Chest pain type: unspecified Qualified Code(s): R07.9 - Chest pain, unspecified (2) CAD (coronary artery disease) Priority: Secondary Status: Chronic Assessment and Plan: On Coumadin. Allergic to ASA which she states causes her to stop breathing. Qualifiers: Coronary Disease-Associated Artery/Lesion type: [place] artery [place] vs. 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 Smoking cessation strongly advised. Qualifiers: COPD type: unspecified COPD Qualified Code(s): J44.9 - Chronic obstructive pulmonary disease, unspecified (6) Seizure disorder Priority: Secondary Status: Chronic Assessment and Plan: Resume Keppra (7) Paraplegia Priority: Secondary Status: Chronic (8) Heart failure Priority: Secondary Status: Chronic Assessment and Plan: Tpe of CHF: unable to determine. Pt non complaint during echo evaluation. Given IV Lasix here. Resume home medications. Echo EV/EV echocardiogram Impressions: Incomplete study due to patient's refusal, only parasternal views. Unable to assess LVEF, grossly normal systolic function on available views. Recommend complete study when patient agrees. Qualifiers: Qualified Code(s): I50.9 - Heart failure, unspecified Hospital course: History of present illness: Dr. Ojeda Ms. Loja is a 53 year old female Patient presented to the ER for chest pain and shortness of breath. She has a history of CHF, vagal nerve stimulator, paraplegia and [place] that required a stent. She also has a pacemaker and takes coumadin for history of stroke. She describes her chest pain as pressure and sharp that radiates into her left arm. This pain is not like her chest pain she experienced during her first heart attack. In the ER patient's vital signs were within normal limits. CBC and BMP were also within normal limits aside from an elevated glucose of 376 and creatinine of 1.30. BNP was 111, INR was 2.1, and initial troponin was undetectable. EKG showed a rate of 100, with no ischemic changes. Chest x-ray showed no acute process. She was admitted to the hospital for further management. Upon my evaluation patient is resting comfortably in the hospital bed in no acute distress. She confirms the above history, stating that her chest pain has been there off and on for the past 2 days. She denies abdominal pain, diarrhea and constipation. She has had some nausea but no vomiting. She also has not eaten for the past 2 days due to the nausea. Currently she is not feeling nauseous. She is a full code. Discharge discussed with: patient - Time Spent with Patient Total time spent providing and/or coordinating discharge services: Time spent: Greater than 30 minutes - Discharge Medications Prescriptions: No Action OxyCODONE Immed Rel [Roxicodone 10 MG] 10 mg PO 5XD Insulin Regular U-500 [HumuLIN R U-500] 25 - 200 unit SQ TID PRN PRN Reason: SLIDING SCALE LevETIRAcetam [Keppra] 2,000 mg PO HS LevETIRAcetam [Keppra] 1,500 mg PO QAM Fluticasone Propionate Nasal [Flonase] 1 spray NS BID Spironolactone 25 mg PO DAILY Losartan Potassium 100 mg PO HS Ipratropium Neb [Atrovent Neb] 0.5 mg IH Q8H PRN PRN Reason: Wheezing Gabapentin [Neurontin] 600 mg PO TID Warfarin [Coumadin] 3 mg PO Q48H Metoprolol Succinate [Toprol Xl] 100 mg PO DAILY Pravastatin Sodium [Pravachol] 40 mg PO HS Furosemide [Lasix] 80 mg PO BID Amiodarone HCl [Pacerone] 200 mg PO DAILY Nitroglycerin [Nitrostat] 0.4 mg SL Q5M PRN PRN Reason: Chest Pain Clopidogrel [Plavix] 75 mg PO DAILY EPINEPHrine [Epipen 2-Pietro] 0.3 mg SQ ONCE PRN PRN Reason: Allergic Reaction Warfarin [Coumadin] 1.5 mg PO Q48H Calcitriol [Rocaltrol] 0.25 mcg PO DAILY Budesonide/Formoterol 160/4.5 [Symbicort 160/4.5] 2 puff IH BIDR Venlafaxine [Effexor] 75 mg PO BID Home Medications: Amiodarone HCl [Pacerone] 200 mg PO DAILY 07/02/15 [History] Clopidogrel [Plavix] 75 mg PO DAILY 07/02/15 [History] EPINEPHrine [Epipen 2-Pietro] 0.3 mg SQ ONCE PRN 07/02/15 [History] Fluticasone Propionate Nasal [Flonase] 1 spray NS BID 07/02/15 [History] Furosemide [Lasix] 80 mg PO BID 07/02/15 [History] Gabapentin [Neurontin] 600 mg PO TID 07/02/15 [History] Insulin Regular U-500 [HumuLIN R U-500] 25 - 200 unit SQ TID PRN 07/02/15 [History] Ipratropium Neb [Atrovent Neb] 0.5 mg IH Q8H PRN 07/02/15 [History] LevETIRAcetam [Keppra] 1,500 mg PO QAM 07/02/15 [History] LevETIRAcetam [Keppra] 2,000 mg PO HS 07/02/15 [History] Losartan Potassium 100 mg PO HS 07/02/15 [History] Metoprolol Succinate [Toprol Xl] 100 mg PO DAILY 07/02/15 [History] Nitroglycerin [Nitrostat] 0.4 mg SL Q5M PRN 07/02/15 [History] OxyCODONE Immed Rel [Roxicodone 10 MG] 10 mg PO 5XD 07/02/15 [History] Pravastatin Sodium [Pravachol] 40 mg PO HS 07/02/15 [History] Spironolactone 25 mg PO DAILY 07/02/15 [History] Warfarin [Coumadin] 3 mg PO Q48H 07/02/15 [History] Warfarin [Coumadin] 1.5 mg PO Q48H 10/15/15 [History] Budesonide/Formoterol 160/4.5 [Symbicort 160/4.5] 2 puff IH BIDR 08/01/17 [History] Calcitriol [Rocaltrol] 0.25 mcg PO DAILY 08/01/17 [History] Venlafaxine [Effexor] 75 mg PO BID 08/01/17 [History] Allergies/Adverse Reactions: Allergy/AdvReac Type Severity Reaction Status Date / Time aspirin [ASA] Allergy Severe Difficulty Verified 01/01/17 04:43 Breathing Penicillins Allergy Severe Difficulty Verified 01/01/17 04:43 Swallowing nicotine [From Nicoderm CQ] Allergy Mild Rash Verified 01/01/17 04:43 Sulfa (Sulfonamide Allergy Mild Hives Verified 01/01/17 04:43 Antibiotics) sulfamethoxazole Allergy Mild Hives Verified 01/01/17 04:43 [From Bactrim] trimethoprim [From Bactrim] Allergy Mild Hives Verified 01/01/17 04:43 azithromycin AdvReac Mild Palpitation Verified 01/01/17 04:43 s cephalexin [From Keflex] AdvReac Mild Nausea Verified 01/01/17 04:43 vitamin k AdvReac Mild Palpitation Uncoded 07/02/15 14:31 s Date of admission: 02/03/19 22:22 Primary care physician: Lisa Branham CNP Consults: 02/04/19 09:28 Consult to Nurse Navigator [CONS] Routine Comment: chf Discharging clinician: Marina Page Anticipated date of discharge: 02/05/19 - Constitutional Vitals: Temp Pulse Resp BP Pulse Ox 99.5 F 83 20 142/79 94 02/05/19 11:46 02/05/19 11:46 02/05/19 11:46 02/05/19 11:46 02/05/19 11:46 General appearance: Present: cooperative, A&O X 3, pleasant, no acute distress, answers questions appropriately Exam: . - Head Head exam: Present: atraumatic, normocephalic - Eye Eye exam: Present: PERRL, conjuntiva pink, sclera anicteric Pupils: Present: PERRL - Neck Neck exam general surgery: Present: supple, trachea midline. Absent: lymphadenopathy - Respiratory Respiratory exam: Present: CTAB. Absent: accessory muscle use, rales, rhonchi, wheezes - Cardiovascular Cardiovascular exam: Present: RRR, +S1, +S2. Absent: diastolic murmur, gallop, rubs, systolic murmur - GI/Abdominal GI/Abdominal exam: Present: normal bowel sounds, soft, no peritoneal signs. Absent: distended, tenderness - Extremities Exam Extremities exam: Present: warm, radial pulses palpable and symmetrical. Absent: calf tenderness, cyanotic, pedal edema - Neurological Exam Neurological exam: Present: CN II-XII intact, oriented X3, no focal deficits. Absent: pronater drift, facial droop, speech deficit - Skin Skin exam: Present: dry, intact - Patient Status Disposition: Home, Self-Care Condition: Good Overall status at discharge: patient is back to baseline - Discharge Instructions Follow Up With: Lisa Branham CNP [Primary Care Provider] - - Diet and Activity Activity: increase activity as tolerated Diet: diabetic diet, low fat, low cholesterol, low salt diet
--- NOTE | 2019-02-05 16:53 | Electrocardiograph Report ---
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
[2019-02-05] MEDS ORDERED: *HR* Warfarin 3 MG TABLET PO ONE (18:00)
== END 2019-02-05 18:06 | disposition home or self-care (01) ==
LOC: EMEROOARM 18:48 → 2ANU 18:48
PROVIDERS: ADMIT Family Medicine; ATTEND Family Medicine

== ENCOUNTER 2019-04-12 14:54 | Inpatient (IN) ==
[2019-04-12] MEDS ORDERED: 0.9 % Sodium Chloride 1,000 ML IVC ONE (15:10)
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
[2019-04-12] MEDS ORDERED: Nystatin POWDER 30 GM BOTTLE TP ONE (15:18)
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
[2019-04-12 16:02] LABS: Basophils % 0.5 %; Eosinophils # 0.2 K/mcL (0.0-0.6); Eosinophils % 2.8 %; Hematocrit 40.1 % (35.3-44.9); Immature Granulocytes % 0.4 % (0-4); Lymphocytes # 1.6 K/mcL (0.6-4.6); Lymphocytes % 21.2 %; Mean Corpuscular HGB Conc 29.9 g/dL (31.6-35.5); Mean Corpuscular Hemoglobin 22.5 pg (28.0-33.3); Mean Corpuscular Volume 75.1 fL (83.0-100.0); Mean Platelet Volume 10.7 fL (9.4-12.4); Monocytes # 0.5 K/mcL (0.0-1.3); Neutrophils # 5.3 K/mcL (1.6-8.9); Platelet Count 243 K/mcL (140-400); Red Blood Count 5.34 M/mcL (3.82-4.97); Red Cell Distribution Width 19.5 % (11.5-14.5); Segmented Neutrophils % 69.1 %
[2019-04-12 16:09] LABS: INR 2.3; Prothrombin Time 26.1 Seconds (9.4-12.1)
[2019-04-12 16:34] LABS: Alanine Aminotransferase 14 Units/L (7-52); Albumin 3.7 g/dL (3.5-5.7); Alkaline Phosphatase 79 Units/L (34-104); Aspartate Amino Transferase 20 Units/L (13-39); BUN/Creatinine Ratio 14 (6-26); Bilirubin,Total 0.5 mg/dL (0.3-1.0); Blood Urea Nitrogen 15 mg/dL (6-20); Calcium 8.8 mg/dL (8.6-10.3); Carbon Dioxide 30 mEq/L (23-29); Chloride 100 mEq/L (98-107); Globulin 3.7 g/dL (2.4-3.5); Glucose 283 mg/dL (70-105); Osmolality,Calculated 295 (280-300); Potassium 3.7 mEq/L (3.5-5.1); Sodium 137 mEq/L (136-145); Total Protein 7.4 g/dL (6.4-8.9); Troponin I < 0.03 ng/mL (< 0.04); eGFR For Non-African Americans 54 (> 60)
[2019-04-12 16:44] LABS: Thyroid Stimulating Hormone 2.489 mcIU/mL (0.340-5.600)
[2019-04-12 17:18] LABS: Bilirubin,Urine Moderate (Negative); Blood,Urine Moderate (Negative); Clarity,Urine Cloudy (Clear); Color,Urine Yellow (Yellow); Glucose,Urine (UA) 100 mg/dL (Normal); Ketones,Urine 40 mg/dL (Negative); Leukocyte Esterase,Urine Trace (Negative); Nitrite,Urine Negative (Negative); Protein,Urine 100 mg/dL (Neg-Trace); Specific Gravity,Urine 1.023 (1.010-1.025); Urobilinogen,Urine Normal (Normal)
[2019-04-12 17:21] LABS: Hyaline Casts,Urine Few per lpf (None-Few); RBC,Urine 30-50 per hpf (0-3); Squamous Epithelial Cell,Urine Many per lpf (None-Few)
[2019-04-12 17:35] LABS: Amorphous Sediment,Urine Few (Few); Bacteria,Urine Few per hpf (None-Few)
--- NOTE | 2019-04-12 17:54 | Internal Med History&Physical ---
Date of Encounter: 04/12/19 Time of Encounter: 18:00 Internal Medicine - H&P: HPI History of present illness: Ms. Loja is a 53 year old female Past Med Surg Social Fam HX - Past Medical History Medical history: DVT, diabetes, hyperlipidemia, hypertension, myocardial infarction, renal disease, seizures, other (paraplegia from waist down) Additional medical history: vagal nerve stimulator Psychiatric history: anxiety, depression - Past Surgical History Surgical History: angioplasty/stent, appendectomy, breast surgery, cholecystectomy, orthopedic, other, pacemaker/AICD Additional surgical history: mrsa. pacemaker. neurostimulator - Social History Smoking Status: Former smoker Smokeless Tobacco Status: No Alcohol use: none Drug use: none - Family History Mother Living Status: Still Living Hx Family Cardiac Disorders: No Hx Family Respiratory Disorders: No Hx Family Cancer: Yes Hx Family GI Disorders: No Hx Family Endocrine Disorder: Yes Hx Family Neuromuscular Disorders: No Hx Family Neurologic Disorders: No Hx Family HEENT Disorders: No Hx Family Autoimmune Disorders: No Father Living Status: Hx Family Cardiac Disorders: Yes (NE) Hx Family Respiratory Disorders: No Hx Family Cancer: No Hx Family GI Disorders: No Hx Family Endocrine Disorder: No Hx Family Neuromuscular Disorders: No Hx Family Neurologic Disorders: No Hx Family HEENT Disorders: No Hx Family Autoimmune Disorders: No Internal Medicine - H&P: Meds Gabapentin [Neurontin] 600 mg PO TID 07/02/15 [History] OxyCODONE Immed Rel [Roxicodone 10 MG] 10 mg PO 5XD 07/02/15 [History] Pravastatin Sodium [Pravachol] 40 mg PO HS 07/02/15 [History] Budesonide/Formoterol 160/4.5 [Symbicort 160/4.5] 2 puff IH BIDR 08/01/17 [History] Venlafaxine [Effexor] 75 mg PO BID 08/01/17 [History] Amiodarone [Cordarone] 200 mg PO DAILY 02/05/19 [History] Cholecalciferol (D-3) [Vitamin D] 5,000 unit PO DAILY 02/05/19 [History] Clopidogrel [Plavix] 75 mg PO DAILY 02/05/19 [History] EPINEPHrine [Epipen] 0.3 mg IM ONCE PRN 02/05/19 [History] Insulin Regular, Human [Humulin R U-500 Kwikpen] 200 unit SQ TID 02/05/19 [History] Ipratropium Neb [Atrovent Neb] 0.5 mg IH Q8H PRN 02/05/19 [History] LevETIRAcetam [Keppra] 1,500 mg PO QAM 02/05/19 [History] LevETIRAcetam [Keppra] 2,000 mg PO HS 02/05/19 [History] Losartan Potassium [Cozaar] 100 mg PO HS 02/05/19 [History] Metoprolol Succinate [Toprol Xl] 100 mg PO DAILY 02/05/19 [History] Spironolactone [Aldactone] 25 mg PO DAILY 02/05/19 [History] Allergy/AdvReac Type Severity Reaction Status Date / Time aspirin [ASA] Allergy Severe Difficulty Verified 02/05/19 13:47 Breathing Penicillins Allergy Severe Difficulty Verified 04/02/19 17:07 Swallowing nicotine [From Nicoderm CQ] Allergy Mild Rash Verified 04/02/19 17:07 Sulfa (Sulfonamide Allergy Mild Hives Verified 04/02/19 17:07 Antibiotics) sulfamethoxazole Allergy Mild Hives Verified 02/05/19 13:47 [From Bactrim] trimethoprim [From Bactrim] Allergy Mild Hives Verified 04/02/19 17:07 azithromycin AdvReac Mild Palpitation Verified 04/02/19 17:07 s cephalexin [From Keflex] AdvReac Mild Nausea Verified 04/02/19 17:07 vitamin k AdvReac Mild Palpitation Uncoded 04/02/19 17:07 s All Systems PM: A 10-system review of systems was performed and is negative for pertinent findings except as documented above in the HPI. - Constitutional Vitals: Temp Pulse Resp BP Pulse Ox 98.7 F 63 13 128/61 95 04/12/19 15:12 04/12/19 16:21 04/12/19 16:21 04/12/19 16:21 04/12/19 16:21 Internal Med - H&P Results - Labs CBC & Chem 7: 04/12/19 15:49 04/12/19 15:49 Labs: Short CBC 04/12/19 Range/Units 15:49 WBC 7.6 (4.3-11.1) K/mcL Hgb 12.0 (11.5-15.4) g/dL Hct 40.1 (35.3-44.9) % Plt Count 243 (140-400) K/mcL Neutrophils # 5.3 (1.6-8.9) K/mcL BMP 04/12/19 15:49 Sodium 137 Potassium 3.7 Chloride 100 Carbon Dioxide 30 H BUN 15 Creatinine 1.06 Glucose 283 H Calcium 8.8 Cardiac Enzymes 04/12/19 Range/Units 15:49 Troponin I < 0.03 (< 0.04) ng/mL Liver Function 04/12/19 Range/Units 15:49 Total Bilirubin 0.5 (0.3-1.0) mg/dL AST 20 (13-39) Units/L ALT 14 (7-52) Units/L Alkaline Phosphatase 79 (34-104) Units/L Albumin 3.7 (3.5-5.7) g/dL Urine 04/12/19 Range/Units 17:05 Urine Color Yellow (Yellow) Urine Clarity Cloudy A (Clear) Urine pH 5.0 (5.0-8.0) pH Units Ur Specific [place] 1.023 (1.010-1.025) Urine Protein 100 H (Neg-Trace) mg/dL Urine Glucose (UA) 100 H (Normal) mg/dL - Impressions ITS Impressions Chest X-Ray 04/12/19 15:10 IMPRESSION: No acute findings. D/ / 04/12/2019 15:48:53 Parker Moya MD / Rachel Frye Interpreting Provider: Parker Moya MD Head CT 04/12/19 15:11 IMPRESSION: No acute intracranial abnormality. D/ / Roderick Correa MD / Roderick Correa MD Interpreting Provider: Roderick Correa MD - Time Spent With Patient Total time spent is greater than 50% in coordination of care (as documented) at patient's floor/unit and/or counseling patient:
--- NOTE | 2019-04-12 18:10 | Event Note ---
Date of Encounter: 04/12/19 Time of Encounter: 18:00 I am not admitting this pt , disregard cancelled H&P.
[2019-04-12] MEDS ORDERED: Naloxone 0.4 MG/ML INJ IVP PRN (20:26)
[2019-04-12] MEDS ORDERED: *HR* EPINEPHrine 1 MG/ML AMPUL IM PRN (20:33)
[2019-04-12] MEDS ORDERED: Ipratropium Neb 0.5 MG NEBULIZER IH PRN (20:33)
[2019-04-12] MEDS ORDERED: *HR* Dextrose 50 % in Water (Syg) 50 ML SYRINGE IVP PRN (20:39)
[2019-04-12] MEDS ORDERED: Dextrose Gel 15 GM/37.5 ML TUBE PO PRN ×2 (20:39)
[2019-04-12] MEDS ORDERED: D5% in Water 1,000 ML IVC PRN (20:39)
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
[2019-04-12] MEDS: Budesonide/Formoterol 160/4.5 1 PUFF INH IH SCH (22:30)
[2019-04-12] MEDS: levETIRAcetam 250 MG TABLET PO SCH ×2 (23:37→23:42)
[2019-04-12] MEDS: Gabapentin 300 MG CAPSULE PO SCH (23:37)
[2019-04-12] MEDS: *HR* OxyCODONE Immed Rel 5 MG TABLET PO PRN (23:38)
[2019-04-12] MEDS: Insulin LISPRO 300 UNITS/3 ML VIAL SQ SCH (23:39)
[2019-04-13] MEDS: *HR* OxyCODONE Immed Rel 5 MG TABLET PO PRN ×3 (04:52→21:31)
[2019-04-13 06:30] LABS: Basophils # 0.1 K/mcL (0.0-0.2); Basophils % 0.6 %; Eosinophils # 0.2 K/mcL (0.0-0.6); Hematocrit 37.8 % (35.3-44.9); Hemoglobin 11.2 g/dL (11.5-15.4); Immature Granulocytes % 0.5 % (0-4); Lymphocytes # 2.5 K/mcL (0.6-4.6); Lymphocytes % 30.7 %; Mean Corpuscular HGB Conc 29.6 g/dL (31.6-35.5); Mean Corpuscular Hemoglobin 22.5 pg (28.0-33.3); Mean Corpuscular Volume 76.1 fL (83.0-100.0); Mean Platelet Volume 11.3 fL (9.4-12.4); Monocytes # 0.5 K/mcL (0.0-1.3); Monocytes % 5.8 %; Neutrophils # 4.8 K/mcL (1.6-8.9); Platelet Count 256 K/mcL (140-400); Red Blood Count 4.97 M/mcL (3.82-4.97); Red Cell Distribution Width 19.2 % (11.5-14.5); Segmented Neutrophils % 59.4 %
[2019-04-13 06:39] LABS: INR 2.3; Prothrombin Time 25.9 Seconds (9.4-12.1)
[2019-04-13 06:54] LABS: Alanine Aminotransferase 12 Units/L (7-52); Albumin 3.7 g/dL (3.5-5.7); Albumin/Globulin Ratio 1.2 (1.1-2.2); Alkaline Phosphatase 75 Units/L (34-104); Aspartate Amino Transferase 18 Units/L (13-39); BUN/Creatinine Ratio 14 (6-26); Bilirubin,Total 0.4 mg/dL (0.3-1.0); Blood Urea Nitrogen 15 mg/dL (6-20); Carbon Dioxide 27 mEq/L (23-29); Chloride 97 mEq/L (98-107); Globulin 3.1 g/dL (2.4-3.5); Glucose 293 mg/dL (70-105); Osmolality,Calculated 292 (280-300); Potassium 3.6 mEq/L (3.5-5.1); Sodium 135 mEq/L (136-145); Total Protein 6.8 g/dL (6.4-8.9); eGFR For Non-African Americans 54 (> 60)
[2019-04-13] MEDS: Budesonide/Formoterol 160/4.5 1 PUFF INH IH SCH ×2 (07:27→22:42)
[2019-04-13] MEDS: *HR* Heparin 5,000 UNIT/ML VIAL SQ SCH ×3 (09:03→20:57)
[2019-04-13] MEDS: levETIRAcetam 250 MG TABLET PO SCH ×2 (09:03→21:31)
[2019-04-13] MEDS: Insulin LISPRO 300 UNITS/3 ML VIAL SQ SCH ×3 (09:03→17:39)
[2019-04-13] MEDS: Cholecalciferol (D-3) 1,000 UNIT TABLET PO SCH (09:04)
[2019-04-13] MEDS: Metoprolol XL (24 HR) Succ 50 MG TAB.ER.24H PO SCH (09:04)
[2019-04-13] MEDS: *HR* Amiodarone 200 MG TABLET PO SCH (09:04)
[2019-04-13] MEDS: Gabapentin 300 MG CAPSULE PO SCH ×3 (09:04→20:56)
--- NOTE | 2019-04-13 09:11 | Internal Med Progress Note ---
Hospitalist Progress Note - Encounter Date of Encounter: 04/13/19 Time of Encounter: 09:10 - Subjective Interval History: Was seen and examined at bedside currently patient complains of insomnia denies any pain or discomfort. Discussed treatment plan with the patient verbalized understanding. administrative services manager has been consulted for discharge planning - Exam Vitals: Temp Pulse Resp BP Pulse Ox 98.4 F 80 16 115/70 95 04/13/19 08:31 04/13/19 08:31 04/13/19 08:31 04/13/19 08:31 04/13/19 08:31 Exam: General: Alert and oriented 3 lying in bed in no acute distress Skin:Normal color, no rash, stage I pressure ulcer to coccyx HEENT:EOM, pupils equal, round and reactive. Cardiovascular:Normal S1 & S2, no rubs, murmurs or gallops. No JVD. Pulse regular. Lungs:Normal breath sounds, no wheezes or crackles. Abdomen:Soft, non-tender, no rigidity. Extremities:No deformity, no edema or tenderness, no joint swelling or clubbing. Neurological:Normal cognition patient is unable to move lower extremities due to history paraplegia Pulses:Carotid and radial pulses normal +2. Rest of the physical exam is non contributory - Assessment and Plan (1) Generalized weakness Current Visit: Yes Status: Acute Assessment and Plan: Patient presents with generalized weakness likely secondary to deconditioning in the setting of underlying paraplegia and recent hospitalization for UTI and anemia. Low suspicion for any UTI at this time. Patient's hemoglobin is stable. Patient unable to care for herself and her is the primary caregiver. Of note, patient's is being transferred from [facility] to [facility] for management of DKA. Currently on 2 N. -PTOT consult -Continue supportive care -We will obtain licensed social worker -patient may require inpatient rehabilitation (2) DVT prophylaxis Current Visit: No Status: Acute Assessment and Plan: Subcutaneous heparin (3) COPD (chronic obstructive pulmonary disease) Current Visit: No Status: Chronic Assessment and Plan: No evidence of an acute exacerbation. Continue with home inhalers. (4) Diabetes type 2, uncontrolled Current Visit: No Status: Chronic Assessment and Plan: Sliding scale insulin. Blood glucose checks. (5) UTI (urinary tract infection) Current Visit: No Status: Acute Assessment and Plan: UA with trace leukocyte esterase and 3-5 white blood cells. Patient recently treated for UTI during previous admission. Low suspicion for UTI. Patient did receive 1 dose of ciprofloxacin in the ED. Urine cultures were obtained. Consider holding antibiotics and following up urine culture. Currently urine culture is negative to date (6) Anemia Current Visit: No Status: Acute Assessment and Plan: Recent evaluation for Hemoccult positive stool and anemia. GI had recommended endoscopy but patient declined due to lack of insurance and cost's. Hemoglobin currently stable. We will monitor for now. Currently hemoglobin is stable no active bleeding noted (7) Ulcer of sacral region, stage 1 Current Visit: Yes Status: Acute Assessment and Plan: Stage I decubitus ulcer. We will obtain wound care consult - Time Spent with Patient Total time spent is greater than 50% in coordination of care (as documented) at patient's floor/unit and/or counseling patient: Internal Medicine: Result - Labs CBC & Chem 7: 04/13/19 05:41 04/13/19 05:41 Labs: Short CBC 04/12/19 04/13/19 Range/Units 15:49 05:41 WBC 7.6 8.0 (4.3-11.1) K/mcL Hgb 12.0 11.2 L (11.5-15.4) g/dL Hct 40.1 37.8 (35.3-44.9) % Plt Count 243 256 (140-400) K/mcL Neutrophils # 5.3 4.8 (1.6-8.9) K/mcL BMP 04/12/19 04/13/19 15:49 05:41 Sodium 137 135 L Potassium 3.7 3.6 Chloride 100 97 L Carbon Dioxide 30 H 27 BUN 15 15 Creatinine 1.06 1.06 Glucose 283 H 293 H Calcium 8.8 9.0 Cardiac Enzymes 04/12/19 04/12/19 Range/Units 15:49 21:59 Troponin I < 0.03 < 0.03 (< 0.04) ng/mL Liver Function 04/12/19 04/13/19 Range/Units 15:49 05:41 Total Bilirubin 0.5 0.4 (0.3-1.0) mg/dL AST 20 18 (13-39) Units/L ALT 14 12 (7-52) Units/L Alkaline Phosphatase 79 75 (34-104) Units/L Albumin 3.7 3.7 (3.5-5.7) g/dL Urine 04/12/19 Range/Units 17:05 Urine Color Yellow (Yellow) Urine Clarity Cloudy A (Clear) Urine pH 5.0 (5.0-8.0) pH Units Ur Specific [place] 1.023 (1.010-1.025) Urine Protein 100 H (Neg-Trace) mg/dL Urine Glucose (UA) 100 H (Normal) mg/dL - ABG Interpretation ABG results: PT/INR, D-dimer PT 25.9 Seconds (9.4-12.1) H 04/13/19 05:41 - Impressions Impressions Chest X-Ray 04/12/19 15:10 IMPRESSION: No acute findings. D/ / 04/12/2019 15:48:53 Parker Moya MD / Rachel Frye Interpreting Provider: Parker Moya MD Head CT 04/12/19 15:11 IMPRESSION: No acute intracranial abnormality. D/ / Roderick Correa MD / Roderick Correa MD Interpreting Provider: Roderick Correa MD Consult Discharge Plan - Plan Referrals: Lisa Branham CNP [Primary Care Provider] - 04/17/19 9:00 am (3) COPD (chronic obstructive pulmonary disease) Qualifiers: COPD type: unspecified COPD Qualified Code(s): J44.9 - Chronic obstructive pulmonary disease, unspecified (5) UTI (urinary tract infection) Qualifiers: Urinary tract infection type: acute cystitis Hematuria presence: with hematuria Qualified Code(s): N30.01 - Acute cystitis with hematuria (6) Anemia Qualifiers: Anemia type: unspecified type Qualified Code(s): D64.9 - Anemia, unspecified
[2019-04-13] MEDS: Melatonin 3 MG TABLET PO PRN (21:31)
[2019-04-14 05:14] LABS: Basophils % 0.6 %; Eosinophils # 0.2 K/mcL (0.0-0.6); Eosinophils % 3.6 %; Hematocrit 35.8 % (35.3-44.9); Hemoglobin 10.5 g/dL (11.5-15.4); Immature Granulocytes % 0.6 % (0-4); Lymphocytes # 2.1 K/mcL (0.6-4.6); Lymphocytes % 31.6 %; Mean Corpuscular HGB Conc 29.3 g/dL (31.6-35.5); Mean Corpuscular Hemoglobin 22.6 pg (28.0-33.3); Mean Platelet Volume 10.9 fL (9.4-12.4); Monocytes # 0.5 K/mcL (0.0-1.3); Monocytes % 6.8 %; Neutrophils # 3.8 K/mcL (1.6-8.9); Platelet Count 215 K/mcL (140-400); Red Blood Count 4.65 M/mcL (3.82-4.97); Red Cell Distribution Width 19.1 % (11.5-14.5); Segmented Neutrophils % 56.8 %
[2019-04-14] MEDS: *HR* OxyCODONE Immed Rel 5 MG TABLET PO PRN ×4 (05:24→22:11)
[2019-04-14] MEDS: *HR* Heparin 5,000 UNIT/ML VIAL SQ SCH ×3 (05:24→22:12)
[2019-04-14 05:34] LABS: Calcium 9.2 mg/dL (8.6-10.3); Potassium 3.9 mEq/L (3.5-5.1)
[2019-04-14] MEDS: Budesonide/Formoterol 160/4.5 1 PUFF INH IH SCH ×2 (07:25→19:59)
[2019-04-14] MEDS: Gabapentin 300 MG CAPSULE PO SCH ×3 (08:35→22:12)
[2019-04-14] MEDS: Insulin LISPRO 300 UNITS/3 ML VIAL SQ SCH ×3 (08:36→18:14)
[2019-04-14] MEDS: levETIRAcetam 250 MG TABLET PO SCH ×2 (08:36→22:11)
[2019-04-14] MEDS: Cholecalciferol (D-3) 1,000 UNIT TABLET PO SCH (08:36)
[2019-04-14] MEDS: *HR* Amiodarone 200 MG TABLET PO SCH (08:36)
[2019-04-14] MEDS: Metoprolol XL (24 HR) Succ 50 MG TAB.ER.24H PO SCH (10:17)
[2019-04-14] MEDS ORDERED: 0.9 % Sodium Chloride 1,000 ML IVC SCH (13:30)
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
[2019-04-14] MEDS: Ondansetron 4 MG/2 ML VIAL IVP PRN (15:48)
[2019-04-14] MEDS: *HR* Insulin Regular U-500 500 UNIT/ML SQ SCH (18:15)
[2019-04-14] MEDS: Melatonin 3 MG TABLET PO PRN (22:12)
[2019-04-15] MEDS ORDERED: Acetaminophen 325 MG TABLET PO PRN (01:00)
[2019-04-15] MEDS: Clotrimazole 1% CRM 15 GM TUBE TP SCH ×3 (01:19→21:50)
[2019-04-15 03:42] LABS: Hematocrit 34.3 % (35.3-44.9); Hemoglobin 10.1 g/dL (11.5-15.4); Mean Corpuscular HGB Conc 29.4 g/dL (31.6-35.5); Mean Corpuscular Hemoglobin 22.8 pg (28.0-33.3); Mean Corpuscular Volume 77.4 fL (83.0-100.0); Mean Platelet Volume 10.7 fL (9.4-12.4); Platelet Count 213 K/mcL (140-400); Red Blood Count 4.43 M/mcL (3.82-4.97); Red Cell Distribution Width 18.4 % (11.5-14.5)
[2019-04-15 04:03] LABS: Alanine Aminotransferase 12 Units/L (7-52); Albumin 3.4 g/dL (3.5-5.7); Albumin/Globulin Ratio 1.2 (1.1-2.2); Alkaline Phosphatase 67 Units/L (34-104); Aspartate Amino Transferase 13 Units/L (13-39); BUN/Creatinine Ratio 18 (6-26); Bilirubin,Total 0.3 mg/dL (0.3-1.0); Blood Urea Nitrogen 21 mg/dL (6-20); Calcium 9.2 mg/dL (8.6-10.3); Carbon Dioxide 33 mEq/L (23-29); Chloride 100 mEq/L (98-107); Globulin 2.9 g/dL (2.4-3.5); Glucose 139 mg/dL (70-105); Osmolality,Calculated 291 (280-300); Potassium 3.8 mEq/L (3.5-5.1); Sodium 138 mEq/L (136-145); Total Protein 6.3 g/dL (6.4-8.9); eGFR For Non-African Americans 50 (> 60)
[2019-04-15] MEDS: *HR* Heparin 5,000 UNIT/ML VIAL SQ SCH ×3 (05:30→21:50)
[2019-04-15] MEDS: *HR* OxyCODONE Immed Rel 5 MG TABLET PO PRN ×3 (05:35→21:48)
[2019-04-15] MEDS: Budesonide/Formoterol 160/4.5 1 PUFF INH IH SCH ×2 (07:36→20:04)
--- NOTE | 2019-04-15 09:48 | Electrocardiograph Report ---
[address] [address] Test Date: 2019-04-12 Pat Name: Ivelisse Loja Department: EXAM3 Room: 3B Gender: F Air Quality Specialist: : 1965 Requested By: Bandar Hartmann Order Number: [id number] Reading MD: Ke Tarango Measurements Intervals [place] Rate: 74 P: CO: 141 QRS: 30 QRSD: 130 T: 84 QT: 476 QTc: 532 Interpretive Statements Atrial-paced rhythm IVCD Electronically Signed On 04-15-2019 9:46:11 EDT by Ke Tarango
[2019-04-15] MEDS: Insulin LISPRO 300 UNITS/3 ML VIAL SQ SCH ×3 (09:51→17:38)
[2019-04-15] MEDS: *HR* Insulin Regular U-500 500 UNIT/ML SQ SCH ×3 (09:51→17:38)
[2019-04-15] MEDS: Gabapentin 300 MG CAPSULE PO SCH ×3 (09:52→21:49)
[2019-04-15] MEDS: *HR* Amiodarone 200 MG TABLET PO SCH (09:52)
[2019-04-15] MEDS: levETIRAcetam 250 MG TABLET PO SCH ×2 (09:52→21:48)
[2019-04-15] MEDS: Cholecalciferol (D-3) 1,000 UNIT TABLET PO SCH (09:52)
[2019-04-15 10:09] LABS: Estimated Average Glucose 220 mg/dl; Hemoglobin A1C 9.3 %
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
[2019-04-15] MEDS: Melatonin 3 MG TABLET PO PRN (21:48)
[2019-04-15] MEDS: Insulin DETEMIR 100 UNIT/ML X5UNITS SQ SCH (22:42)
[2019-04-16] MEDS: Ondansetron 4 MG/2 ML VIAL IVP PRN ×2 (00:12→12:19)
[2019-04-16 05:14] LABS: Hematocrit 35.9 % (35.3-44.9); Hemoglobin 10.5 g/dL (11.5-15.4); Mean Corpuscular HGB Conc 29.2 g/dL (31.6-35.5); Mean Corpuscular Hemoglobin 22.6 pg (28.0-33.3); Mean Corpuscular Volume 77.4 fL (83.0-100.0); Mean Platelet Volume 11.2 fL (9.4-12.4); Platelet Count 237 K/mcL (140-400); Red Blood Count 4.64 M/mcL (3.82-4.97); Red Cell Distribution Width 18.5 % (11.5-14.5)
[2019-04-16 05:32] LABS: Alanine Aminotransferase 12 Units/L (7-52); Albumin 3.4 g/dL (3.5-5.7); Alkaline Phosphatase 54 Units/L (34-104); Aspartate Amino Transferase 15 Units/L (13-39); BUN/Creatinine Ratio 16 (6-26); Bilirubin,Total 0.4 mg/dL (0.3-1.0); Blood Urea Nitrogen 18 mg/dL (6-20); Calcium 9.1 mg/dL (8.6-10.3); Carbon Dioxide 31 mEq/L (23-29); Chloride 101 mEq/L (98-107); Globulin 3.4 g/dL (2.4-3.5); Glucose 99 mg/dL (70-105); Osmolality,Calculated 292 (280-300); Potassium 4.4 mEq/L (3.5-5.1); Sodium 140 mEq/L (136-145); Total Protein 6.8 g/dL (6.4-8.9); eGFR For Non-African Americans 50 (> 60)
[2019-04-16] MEDS: *HR* Heparin 5,000 UNIT/ML VIAL SQ SCH ×3 (06:00→21:55)
[2019-04-16] MEDS: Budesonide/Formoterol 160/4.5 1 PUFF INH IH SCH ×2 (07:23→20:20)
[2019-04-16] MEDS: levETIRAcetam 250 MG TABLET PO SCH ×2 (09:23→21:56)
[2019-04-16] MEDS: *HR* Amiodarone 200 MG TABLET PO SCH (09:23)
[2019-04-16] MEDS: Gabapentin 300 MG CAPSULE PO SCH ×3 (09:23→21:56)
[2019-04-16] MEDS: *HR* OxyCODONE Immed Rel 5 MG TABLET PO PRN ×3 (09:23→21:53)
[2019-04-16] MEDS: Cholecalciferol (D-3) 1,000 UNIT TABLET PO SCH (09:23)
[2019-04-16] MEDS: Insulin LISPRO 300 UNITS/3 ML VIAL SQ SCH ×3 (09:25→17:45)
[2019-04-16] MEDS: Clotrimazole 1% CRM 15 GM TUBE TP SCH ×2 (09:25→21:57)
[2019-04-16] MEDS: *HR* Insulin Regular U-500 500 UNIT/ML SQ SCH ×3 (09:34→17:43)
[2019-04-16] MEDS: Insulin DETEMIR 100 UNIT/ML X5UNITS SQ SCH ×2 (09:34→21:57)
[2019-04-16] MEDS ORDERED: Metoclopramide 10 MG/2 ML VIAL IVP PRN (14:38)
[2019-04-16] MEDS ORDERED: Ondansetron 4 MG/2 ML VIAL IVP PRN (14:38)
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
[2019-04-17 01:18] LABS: Hematocrit 36.1 % (35.3-44.9); Hemoglobin 10.5 g/dL (11.5-15.4); Mean Corpuscular HGB Conc 29.1 g/dL (31.6-35.5); Mean Corpuscular Hemoglobin 22.3 pg (28.0-33.3); Mean Corpuscular Volume 76.6 fL (83.0-100.0); Platelet Count 230 K/mcL (140-400); Red Blood Count 4.71 M/mcL (3.82-4.97); Red Cell Distribution Width 18.7 % (11.5-14.5)
[2019-04-17 01:38] LABS: Alanine Aminotransferase 13 Units/L (7-52); Albumin 3.4 g/dL (3.5-5.7); Alkaline Phosphatase 57 Units/L (34-104); Aspartate Amino Transferase 15 Units/L (13-39); BUN/Creatinine Ratio 15 (6-26); Bilirubin,Total 0.4 mg/dL (0.3-1.0); Blood Urea Nitrogen 16 mg/dL (6-20); Carbon Dioxide 32 mEq/L (23-29); Chloride 98 mEq/L (98-107); Globulin 3.5 g/dL (2.4-3.5); Glucose 244 mg/dL (70-105); Osmolality,Calculated 289 (280-300); Potassium 4.4 mEq/L (3.5-5.1); Sodium 135 mEq/L (136-145); Total Protein 6.9 g/dL (6.4-8.9); eGFR For Non-African Americans 53 (> 60)
[2019-04-17] MEDS ORDERED: *HR* FentaNYL (PF) 100 MCG/2 ML VIAL IVP ONE (02:19)
[2019-04-17] MEDS: *HR* Heparin 5,000 UNIT/ML VIAL SQ SCH ×2 (05:30→12:16)
[2019-04-17] MEDS: Budesonide/Formoterol 160/4.5 1 PUFF INH IH SCH (07:27)
[2019-04-17] MEDS: Insulin DETEMIR 100 UNIT/ML X5UNITS SQ SCH (08:49)
[2019-04-17] MEDS: Insulin LISPRO 300 UNITS/3 ML VIAL SQ SCH ×3 (08:49→17:05)
[2019-04-17] MEDS: *HR* Amiodarone 200 MG TABLET PO SCH (08:50)
[2019-04-17] MEDS: Gabapentin 300 MG CAPSULE PO SCH ×2 (08:50→15:49)
[2019-04-17] MEDS: Cholecalciferol (D-3) 1,000 UNIT TABLET PO SCH (08:50)
[2019-04-17] MEDS: levETIRAcetam 250 MG TABLET PO SCH (08:50)
[2019-04-17] MEDS: *HR* Insulin Regular U-500 500 UNIT/ML SQ SCH ×3 (08:50→17:05)
[2019-04-17] MEDS: Clotrimazole 1% CRM 15 GM TUBE TP SCH (08:51)
[2019-04-17] MEDS: *HR* OxyCODONE Immed Rel 5 MG TABLET PO PRN (12:17)
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
[2019-04-17 16:53] VITALS: BP 147/77
[2019-04-17] MEDS ORDERED: Warfarin perPT PO PRN (18:00)
[2019-04-17] MEDS ORDERED: *HR* Warfarin 3 MG TABLET PO ONE (18:46)
--- NOTE | 2019-04-18 10:02 | Physician Discharge Referral ---
[facility] Referral Info Transfer To: ECF Provider in Charge after Transfer: PCP Institutional Level of Care: Skilled - Diagnosis (1) Intractable nausea and vomiting Status: Acute (2) Generalized weakness Status: Acute (3) Type 2 diabetes mellitus Status: Chronic (4) Essential hypertension Status: Chronic (5) COPD (chronic obstructive pulmonary disease) Status: Chronic (6) Paraplegia Status: Chronic (7) UTI (urinary tract infection) Status: Ruled-out (8) Anemia Status: Acute (9) Ulcer of sacral region, stage 1 Status: Acute (10) Seizure Status: Acute (11) CHARLES (acute kidney injury) Status: Acute (12) PAF (paroxysmal atrial fibrillation) Status: Acute (13) DVT prophylaxis Status: Acute - Transfer Medications Home Medications: Gabapentin [Neurontin] 600 mg PO TID 07/02/15 [History] OxyCODONE Immed Rel [Roxicodone 10 MG] 10 mg PO 5XD 07/02/15 [History] Pravastatin Sodium [Pravachol] 40 mg PO HS 07/02/15 [History] Budesonide/Formoterol 160/4.5 [Symbicort 160/4.5] 2 puff IH BIDR 08/01/17 [History] Venlafaxine [Effexor] 75 mg PO BID 08/01/17 [History] Amiodarone [Cordarone] 200 mg PO DAILY 02/05/19 [History] Cholecalciferol (D-3) [Vitamin D] 5,000 unit PO DAILY 02/05/19 [History] Clopidogrel [Plavix] 75 mg PO DAILY 02/05/19 [History] EPINEPHrine [Epipen] 0.3 mg IM ONCE PRN 02/05/19 [History] Insulin Regular, Human [Humulin R U-500 Kwikpen] 200 unit SQ TID 02/05/19 [History] Ipratropium Neb [Atrovent Neb] 0.5 mg IH Q8H PRN 02/05/19 [History] LevETIRAcetam [Keppra] 1,500 mg PO QAM 02/05/19 [History] LevETIRAcetam [Keppra] 2,000 mg PO HS 02/05/19 [History] Losartan Potassium [Cozaar] 100 mg PO HS 02/05/19 [History] Metoprolol Succinate [Toprol Xl] 100 mg PO DAILY 02/05/19 [History] Spironolactone [Aldactone] 25 mg PO DAILY 02/05/19 [History] Allergies/Adverse Reactions: Allergy/AdvReac Type Severity Reaction Status Date / Time aspirin [ASA] Allergy Severe Difficulty Verified 02/05/19 13:47 Breathing Penicillins Allergy Severe Difficulty Verified 04/02/19 17:07 Swallowing nicotine [From Nicoderm CQ] Allergy Mild Rash Verified 04/02/19 17:07 Sulfa (Sulfonamide Allergy Mild Hives Verified 04/02/19 17:07 Antibiotics) sulfamethoxazole Allergy Mild Hives Verified 02/05/19 13:47 [From Bactrim] trimethoprim [From Bactrim] Allergy Mild Hives Verified 04/02/19 17:07 azithromycin AdvReac Mild Palpitation Verified 04/02/19 17:07 s cephalexin [From Keflex] AdvReac Mild Nausea Verified 04/02/19 17:07 vitamin k AdvReac Mild Palpitation Uncoded 04/02/19 17:07 s - Respiratory Orders Smoking Cessation: Smoking cessation has been advised. For more information, call the [place] Tobacco Quit Line at 4-372-UQASNOW. CERTIFICATION: I certify that the transfer of the above named patient to an Extended Care Facility is necessary for the continuing treatment of the diagnosis listed. The above information is true and accurate reflection of patient's current condition. Confidential - Redisclosure prohibited without a patient's written consent.
== END 2019-04-17 19:20 | DRG 948 ==
LOC: 3BNU 14:54 → EMEROOARM 14:54 → 3BNU 19:30 → SUATTDRO 04-13 13:57
PROVIDERS: ADMIT Internal Medicine Nephrology; ATTEND Family Medicine

== ENCOUNTER 2019-05-27 01:19 | Inpatient (IN) ==
[2019-05-27] MEDS ORDERED: *HR* OxyCODONE/APAP 5/325 TABLET PO ONE (01:57)
[2019-05-27] MEDS ORDERED: Acetaminophen 325 MG TABLET PO PRN (03:01)
[2019-05-27] MEDS ORDERED: Ondansetron 4 MG/2 ML VIAL IVP PRN (03:01)
[2019-05-27] MEDS ORDERED: *HR* LORazepam 2 MG/ML VIAL IVP PRN (03:01)
[2019-05-27] MEDS ORDERED: Naloxone 0.4 MG/ML INJ IVP PRN (03:01)
[2019-05-27] MEDS ORDERED: D5% in Water 1,000 ML IVC PRN (03:14)
[2019-05-27] MEDS ORDERED: *HR* Dextrose 50 % in Water (Syg) 50 ML SYRINGE IVP PRN (03:14)
[2019-05-27] MEDS ORDERED: Dextrose Gel 15 GM/37.5 ML TUBE PO PRN ×2 (03:14)
[2019-05-27] MEDS: *HR* OxyCODONE Immed Rel 5 MG TABLET PO PRN ×3 (03:47→18:15)
[2019-05-27 03:57] LABS: Bilirubin,Urine Negative (Negative); Blood,Urine Small (Negative); Color,Urine Yellow (Yellow); Glucose,Urine (UA) Normal (Normal); Ketones,Urine Negative (Negative); Leukocyte Esterase,Urine Large (Negative); Nitrite,Urine Positive (Negative); PH,Urine 5.5 pH Units (5.0-8.0); Protein,Urine 30 mg/dL (Neg-Trace); Specific Gravity,Urine 1.023 (1.010-1.025); Urobilinogen,Urine Normal (Normal)
[2019-05-27 03:59] LABS: Bacteria,Urine Many per hpf (None-Few); Hyaline Casts,Urine None Seen per lpf (None-Few); Squamous Epithelial Cell,Urine Many per lpf (None-Few); WBC,Urine TNTC per hpf (0-3)
[2019-05-27 04:00] LABS: Clarity,Urine Slightly Cloudy (Clear)
[2019-05-27 04:52] LABS: Basophils % 0.3 %; Eosinophils # 0.2 K/mcL (0.0-0.6); Eosinophils % 1.3 %; Hematocrit 43.9 % (35.3-44.9); Hemoglobin 13.3 g/dL (11.5-15.4); Immature Granulocytes % 0.9 % (0-4); Lymphocytes # 1.7 K/mcL (0.6-4.6); Mean Corpuscular HGB Conc 30.3 g/dL (31.6-35.5); Mean Corpuscular Hemoglobin 24.9 pg (28.0-33.3); Mean Corpuscular Volume 82.1 fL (83.0-100.0); Mean Platelet Volume 10.7 fL (9.4-12.4); Monocytes # 0.9 K/mcL (0.0-1.3); Monocytes % 7.2 %; Neutrophils # 9.1 K/mcL (1.6-8.9); Platelet Count 188 K/mcL (140-400); Red Blood Count 5.35 M/mcL (3.82-4.97); Red Cell Distribution Width 19.4 % (11.5-14.5); Segmented Neutrophils % 76.3 %; White Blood Count 11.9 K/mcL (4.3-11.1)
[2019-05-27 05:00] LABS: INR 1.6; Prothrombin Time 17.8 Seconds (9.4-12.1)
[2019-05-27 05:03] LABS: Activated Partial Thrombo Time 37.1 Seconds (26.0-36.0)
[2019-05-27 05:15] LABS: Albumin 3.7 g/dL (3.5-5.7); Albumin/Globulin Ratio 1.1 (1.1-2.2); Bilirubin,Total 0.4 mg/dL (0.3-1.0); Calcium 8.7 mg/dL (8.6-10.3); Globulin 3.3 g/dL (2.4-3.5); Magnesium 1.5 mg/dL (1.6-2.6); Potassium 3.2 mEq/L (3.5-5.1)
[2019-05-27] MEDS ORDERED: *HR* Heparin 5,000 UNIT/ML VIAL SQ SCH (06:00)
[2019-05-27] MEDS: Ascorbic Acid 500 MG TABLET PO SCH (06:14)
[2019-05-27] MEDS: *HR* HYDROcodone/Acet 5/325 mg TABLET PO PRN ×2 (06:14→21:06)
[2019-05-27 06:40] LABS: Estimated Average Glucose 180 mg/dl
[2019-05-27] MEDS ORDERED: Perflutren Lipid Microsphere 1.3 ML in 0.9 % Sodium Chloride 8.7 ML IVP ONE (07:58)
[2019-05-27] MEDS ORDERED: Insulin DETEMIR 100 UNIT/ML X5UNITS SQ SCH (09:00)
[2019-05-27] MEDS: Insulin LISPRO 300 UNITS/3 ML VIAL SQ SCH ×3 (10:04→16:23)
[2019-05-27] MEDS: Metoprolol XL (24 HR) Succ 50 MG TAB.ER.24H PO SCH (10:04)
[2019-05-27] MEDS: Cholecalciferol (D-3) 1,000 UNIT (25MCG) TABLET PO SCH (10:04)
[2019-05-27] MEDS: levETIRAcetam 250 MG TABLET PO SCH ×2 (10:04→21:06)
[2019-05-27] MEDS: *HR* Amiodarone 200 MG TABLET PO SCH (10:04)
[2019-05-27] MEDS: Gabapentin 300 MG CAPSULE PO SCH ×3 (10:04→21:06)
[2019-05-27] MEDS: Budesonide/Formoterol 160/4.5 1 PUFF INH IH SCH ×2 (10:49→23:05)
[2019-05-27] MEDS: Insulin DETEMIR 100 UNIT/ML X5UNITS SQ SCH ×2 (11:36→21:06)
[2019-05-27] MEDS ORDERED: Ringers Solution, Lactated 1,000 ML IVC SCH (13:15)
[2019-05-27] MEDS: *HR* FentaNYL PATCH 25 MCG PATCH TD SCH (13:16)
[2019-05-27] MEDS ORDERED: *HR* Warfarin 3 MG TABLET PO ONE (18:00)
[2019-05-27] MEDS: Warfarin perPT PO SCH (18:17)
[2019-05-28] MEDS: *HR* OxyCODONE Immed Rel 5 MG TABLET PO PRN ×4 (00:40→21:54)
[2019-05-28] MEDS: *HR* HYDROcodone/Acet 5/325 mg TABLET PO PRN ×2 (03:06→11:44)
[2019-05-28] MEDS: Ascorbic Acid 500 MG TABLET PO SCH (05:35)
[2019-05-28 07:35] LABS: INR 1.1; Prothrombin Time 12.6 Seconds (9.4-12.1)
[2019-05-28] MEDS: Gabapentin 300 MG CAPSULE PO SCH ×3 (08:31→21:54)
[2019-05-28] MEDS: Cholecalciferol (D-3) 1,000 UNIT (25MCG) TABLET PO SCH (08:31)
[2019-05-28] MEDS: cefTRIAXone 1,000 MG in Water for inj. (sterile) 10 ML IVP SCH (08:32)
[2019-05-28] MEDS: *HR* Amiodarone 200 MG TABLET PO SCH (08:32)
[2019-05-28] MEDS: Metoprolol XL (24 HR) Succ 50 MG TAB.ER.24H PO SCH (08:32)
[2019-05-28] MEDS: Insulin LISPRO 300 UNITS/3 ML VIAL SQ SCH ×5 (08:33→17:29)
[2019-05-28 08:40] LABS: Basophils % 0.5 %; Eosinophils # 0.3 K/mcL (0.0-0.6); Eosinophils % 4.3 %; Hematocrit 39.8 % (35.3-44.9); Immature Granulocytes % 0.8 % (0-4); Lymphocytes # 1.9 K/mcL (0.6-4.6); Lymphocytes % 30.1 %; Mean Corpuscular HGB Conc 29.1 g/dL (31.6-35.5); Mean Corpuscular Hemoglobin 24.5 pg (28.0-33.3); Mean Corpuscular Volume 84.1 fL (83.0-100.0); Mean Platelet Volume 11.2 fL (9.4-12.4); Monocytes # 0.6 K/mcL (0.0-1.3); Monocytes % 8.7 %; Neutrophils # 3.5 K/mcL (1.6-8.9); Platelet Count 167 K/mcL (140-400); Red Blood Count 4.73 M/mcL (3.82-4.97); Red Cell Distribution Width 18.6 % (11.5-14.5); Segmented Neutrophils % 55.6 %; White Blood Count 6.3 K/mcL (4.3-11.1)
[2019-05-28 08:42] LABS: Hemoglobin 11.6 g/dL (11.5-15.4)
[2019-05-28 09:09] LABS: BUN/Creatinine Ratio 15 (6-26); Blood Urea Nitrogen 15 mg/dL (6-20); Calcium 8.9 mg/dL (8.6-10.3); Carbon Dioxide 33 mEq/L (23-29); Chloride 97 mEq/L (98-107); Glucose 387 mg/dL (70-105); Magnesium 1.9 mg/dL (1.6-2.6); Osmolality,Calculated 301 (280-300); Phosphorous 2.8 mg/dL (2.7-4.5); Potassium 4.3 mEq/L (3.5-5.1); Sodium 137 mEq/L (136-145); eGFR For African Americans > 60 (> 60); eGFR For Non-African Americans 56 (> 60)
[2019-05-28] MEDS: Budesonide/Formoterol 160/4.5 1 PUFF INH IH SCH ×2 (10:59→19:39)
[2019-05-28] MEDS: levETIRAcetam 250 MG TABLET PO SCH ×2 (11:43→21:55)
[2019-05-28] MEDS: Insulin DETEMIR 100 UNIT/ML X5UNITS SQ SCH ×2 (11:47→22:03)
[2019-05-28] MEDS: Furosemide 40 MG TABLET PO SCH (17:28)
[2019-05-28] MEDS ORDERED: *HR* Warfarin 3 MG TABLET PO ONE (18:00)
[2019-05-28] MEDS: Warfarin perPT PO SCH (18:32)
[2019-05-29] MEDS: *HR* OxyCODONE Immed Rel 5 MG TABLET PO PRN ×4 (02:12→23:08)
[2019-05-29] MEDS: Insulin LISPRO 300 UNITS/3 ML VIAL SQ SCH ×8 (02:20→20:33)
[2019-05-29 04:54] LABS: INR 1.1; Prothrombin Time 12.7 Seconds (9.4-12.1)
[2019-05-29] MEDS: Ascorbic Acid 500 MG TABLET PO SCH (06:42)
[2019-05-29] MEDS: *HR* HYDROcodone/Acet 5/325 mg TABLET PO PRN ×3 (06:42→20:31)
[2019-05-29] MEDS: Budesonide/Formoterol 160/4.5 1 PUFF INH IH SCH ×2 (07:26→20:16)
[2019-05-29] MEDS: levETIRAcetam 250 MG TABLET PO SCH ×2 (09:57→20:26)
[2019-05-29] MEDS: Metoprolol XL (24 HR) Succ 50 MG TAB.ER.24H PO SCH (09:58)
[2019-05-29] MEDS: *HR* Amiodarone 200 MG TABLET PO SCH (09:58)
[2019-05-29] MEDS: Cholecalciferol (D-3) 1,000 UNIT (25MCG) TABLET PO SCH (09:58)
[2019-05-29] MEDS: Gabapentin 300 MG CAPSULE PO SCH ×3 (09:58→20:31)
[2019-05-29] MEDS: Furosemide 40 MG TABLET PO SCH ×2 (09:59→16:35)
[2019-05-29] MEDS: cefTRIAXone 1,000 MG in Water for inj. (sterile) 10 ML IVP SCH (10:04)
[2019-05-29] MEDS: Insulin DETEMIR 100 UNIT/ML X5UNITS SQ SCH ×2 (10:14→20:31)
[2019-05-29] MEDS: Warfarin perPT PO SCH (16:44)
[2019-05-29] MEDS ORDERED: *HR* Warfarin 5 MG TABLET PO ONE (18:00)
[2019-05-29] MEDS ORDERED: *HR* Promethazine 25 MG/ML VIAL IVP PRN (22:57)
[2019-05-30] MEDS: *HR* HYDROcodone/Acet 5/325 mg TABLET PO PRN (02:34)
[2019-05-30] MEDS: Ascorbic Acid 500 MG TABLET PO SCH (05:29)
[2019-05-30] MEDS: Budesonide/Formoterol 160/4.5 1 PUFF INH IH SCH ×2 (07:39→20:19)
[2019-05-30 08:05] LABS: Hematocrit 37.9 % (35.3-44.9); Hemoglobin 11.4 g/dL (11.5-15.4); Mean Corpuscular HGB Conc 30.1 g/dL (31.6-35.5); Mean Corpuscular Hemoglobin 24.8 pg (28.0-33.3); Mean Corpuscular Volume 82.6 fL (83.0-100.0); Mean Platelet Volume 11.1 fL (9.4-12.4); Platelet Count 187 K/mcL (140-400); Red Blood Count 4.59 M/mcL (3.82-4.97); Red Cell Distribution Width 18.5 % (11.5-14.5); White Blood Count 7.9 K/mcL (4.3-11.1)
[2019-05-30 08:16] LABS: INR 1.2; Prothrombin Time 13.3 Seconds (9.4-12.1)
[2019-05-30 08:32] LABS: Calcium 9.1 mg/dL (8.6-10.3); Potassium 4.2 mEq/L (3.5-5.1)
[2019-05-30] MEDS: cefTRIAXone 1,000 MG in Water for inj. (sterile) 10 ML IVP SCH (08:35)
[2019-05-30] MEDS: Insulin LISPRO 300 UNITS/3 ML VIAL SQ SCH ×7 (08:36→21:05)
[2019-05-30] MEDS: levETIRAcetam 250 MG TABLET PO SCH ×2 (08:36→21:04)
[2019-05-30] MEDS: *HR* Amiodarone 200 MG TABLET PO SCH (08:37)
[2019-05-30] MEDS: Furosemide 40 MG TABLET PO SCH ×2 (08:37→17:09)
[2019-05-30] MEDS: Cholecalciferol (D-3) 1,000 UNIT (25MCG) TABLET PO SCH (08:37)
[2019-05-30] MEDS: Gabapentin 300 MG CAPSULE PO SCH ×3 (08:37→21:03)
[2019-05-30] MEDS: Metoprolol XL (24 HR) Succ 50 MG TAB.ER.24H PO SCH (08:37)
[2019-05-30] MEDS: *HR* OxyCODONE Immed Rel 5 MG TABLET PO PRN (08:37)
[2019-05-30] MEDS: Insulin DETEMIR 100 UNIT/ML X5UNITS SQ SCH ×2 (09:04→21:03)
[2019-05-30] MEDS: *HR* FentaNYL PATCH 25 MCG PATCH TD SCH (12:12)
[2019-05-30] MEDS: Warfarin perPT PO SCH (17:06)
[2019-05-30] MEDS ORDERED: Acetaminophen 325 MG TABLET PO PRN (17:25)
[2019-05-30] MEDS ORDERED: *HR* Warfarin 5 MG TABLET PO ONE (18:00)
[2019-05-31 05:44] LABS: Hematocrit 39.3 % (35.3-44.9); Hemoglobin 11.7 g/dL (11.5-15.4); Mean Corpuscular HGB Conc 29.8 g/dL (31.6-35.5); Mean Corpuscular Hemoglobin 25.1 pg (28.0-33.3); Mean Corpuscular Volume 84.2 fL (83.0-100.0); Mean Platelet Volume 10.5 fL (9.4-12.4); Platelet Count 173 K/mcL (140-400); Red Blood Count 4.67 M/mcL (3.82-4.97); Red Cell Distribution Width 18.1 % (11.5-14.5); White Blood Count 6.6 K/mcL (4.3-11.1)
[2019-05-31 05:55] LABS: INR 1.2; Prothrombin Time 13.9 Seconds (9.4-12.1)
[2019-05-31 06:03] LABS: Potassium 4.2 mEq/L (3.5-5.1)
[2019-05-31] MEDS: *HR* HYDROcodone/Acet 5/325 mg TABLET PO PRN ×3 (06:30→21:44)
[2019-05-31] MEDS: Ascorbic Acid 500 MG TABLET PO SCH (06:30)
[2019-05-31] MEDS: Budesonide/Formoterol 160/4.5 1 PUFF INH IH SCH ×2 (07:34→19:56)
[2019-05-31] MEDS: Gabapentin 300 MG CAPSULE PO SCH ×3 (08:19→21:44)
[2019-05-31] MEDS: Cholecalciferol (D-3) 1,000 UNIT (25MCG) TABLET PO SCH (08:19)
[2019-05-31] MEDS: *HR* Amiodarone 200 MG TABLET PO SCH (08:20)
[2019-05-31] MEDS: levETIRAcetam 250 MG TABLET PO SCH ×2 (08:20→21:44)
[2019-05-31] MEDS: Furosemide 40 MG TABLET PO SCH ×2 (08:20→17:00)
[2019-05-31] MEDS: Metoprolol XL (24 HR) Succ 50 MG TAB.ER.24H PO SCH (08:20)
[2019-05-31] MEDS: Insulin DETEMIR 100 UNIT/ML X5UNITS SQ SCH ×2 (08:20→21:45)
[2019-05-31] MEDS: Insulin LISPRO 300 UNITS/3 ML VIAL SQ SCH ×7 (08:22→21:45)
[2019-05-31] MEDS: *HR* OxyCODONE Immed Rel 5 MG TABLET PO PRN ×2 (12:22→19:37)
[2019-05-31] MEDS: Warfarin perPT PO SCH (17:02)
[2019-05-31] MEDS ORDERED: *HR* Warfarin 5 MG TABLET PO ONE (18:00)
[2019-06-01] MEDS ORDERED: Insulin DETEMIR 100 UNIT/ML X5UNITS SQ ONE (01:09)
[2019-06-01] MEDS: *HR* OxyCODONE Immed Rel 5 MG TABLET PO PRN ×2 (02:45→11:52)
[2019-06-01 04:09] LABS: INR 1.3; Prothrombin Time 15.1 Seconds (9.4-12.1)
[2019-06-01] MEDS: Ascorbic Acid 500 MG TABLET PO SCH (05:38)
[2019-06-01] MEDS: *HR* HYDROcodone/Acet 5/325 mg TABLET PO PRN ×2 (05:39→17:33)
[2019-06-01] MEDS: Metoprolol XL (24 HR) Succ 50 MG TAB.ER.24H PO SCH (09:03)
[2019-06-01] MEDS: *HR* Amiodarone 200 MG TABLET PO SCH (09:03)
[2019-06-01] MEDS: Gabapentin 300 MG CAPSULE PO SCH ×3 (09:03→21:27)
[2019-06-01] MEDS: Cholecalciferol (D-3) 1,000 UNIT (25MCG) TABLET PO SCH (09:03)
[2019-06-01] MEDS: Furosemide 40 MG TABLET PO SCH ×2 (09:03→17:33)
[2019-06-01] MEDS: levETIRAcetam 250 MG TABLET PO SCH ×2 (09:04→21:27)
[2019-06-01] MEDS: Insulin LISPRO 300 UNITS/3 ML VIAL SQ SCH ×7 (09:05→21:29)
[2019-06-01] MEDS: Insulin DETEMIR 100 UNIT/ML X5UNITS SQ SCH ×2 (09:05→21:26)
[2019-06-01] MEDS: Budesonide/Formoterol 160/4.5 1 PUFF INH IH SCH ×2 (09:51→20:59)
[2019-06-01] MEDS: Warfarin perPT PO SCH (17:32)
[2019-06-01] MEDS ORDERED: *HR* Warfarin 5 MG TABLET PO ONE (18:00)
[2019-06-02] MEDS: Ascorbic Acid 500 MG TABLET PO SCH (06:55)
[2019-06-02 07:31] LABS: INR 1.5; Prothrombin Time 17.4 Seconds (9.4-12.1)
[2019-06-02] MEDS: Budesonide/Formoterol 160/4.5 1 PUFF INH IH SCH ×2 (07:35→20:09)
[2019-06-02] MEDS: Cholecalciferol (D-3) 1,000 UNIT (25MCG) TABLET PO SCH (08:33)
[2019-06-02] MEDS: Gabapentin 300 MG CAPSULE PO SCH ×3 (08:33→20:52)
[2019-06-02] MEDS: Metoprolol XL (24 HR) Succ 50 MG TAB.ER.24H PO SCH (08:33)
[2019-06-02] MEDS: Insulin LISPRO 300 UNITS/3 ML VIAL SQ SCH ×7 (08:34→20:54)
[2019-06-02] MEDS: *HR* Amiodarone 200 MG TABLET PO SCH (08:34)
[2019-06-02] MEDS: levETIRAcetam 250 MG TABLET PO SCH ×2 (08:34→20:51)
[2019-06-02] MEDS: Furosemide 40 MG TABLET PO SCH ×2 (08:34→17:19)
[2019-06-02] MEDS: Insulin DETEMIR 100 UNIT/ML X5UNITS SQ SCH ×2 (08:35→20:52)
[2019-06-02] MEDS: *HR* FentaNYL PATCH 25 MCG PATCH TD SCH (12:02)
[2019-06-02] MEDS: *HR* OxyCODONE Immed Rel 5 MG TABLET PO PRN (17:23)
[2019-06-02] MEDS: Warfarin perPT PO SCH (17:27)
[2019-06-02] MEDS ORDERED: *HR* Warfarin 3 MG TABLET PO ONE (18:00)
[2019-06-03] MEDS: *HR* OxyCODONE Immed Rel 5 MG TABLET PO PRN ×4 (00:21→16:59)
[2019-06-03] MEDS ORDERED: Insulin DETEMIR 100 UNIT/ML X5UNITS SQ ONE (02:23)
[2019-06-03] MEDS: *HR* HYDROcodone/Acet 5/325 mg TABLET PO PRN ×2 (03:05→10:39)
[2019-06-03] MEDS: Ascorbic Acid 500 MG TABLET PO SCH (06:57)
[2019-06-03] MEDS: Budesonide/Formoterol 160/4.5 1 PUFF INH IH SCH ×2 (07:43→20:38)
[2019-06-03 07:55] LABS: INR 1.8; Prothrombin Time 20.4 Seconds (9.4-12.1)
[2019-06-03] MEDS: Furosemide 40 MG TABLET PO SCH ×2 (08:06→16:58)
[2019-06-03] MEDS: Gabapentin 300 MG CAPSULE PO SCH ×3 (08:06→20:58)
[2019-06-03] MEDS: Metoprolol XL (24 HR) Succ 50 MG TAB.ER.24H PO SCH (08:06)
[2019-06-03] MEDS: *HR* Amiodarone 200 MG TABLET PO SCH (08:06)
[2019-06-03] MEDS: Cholecalciferol (D-3) 1,000 UNIT (25MCG) TABLET PO SCH (08:06)
[2019-06-03] MEDS: Insulin DETEMIR 100 UNIT/ML X5UNITS SQ SCH ×2 (08:07→20:59)
[2019-06-03] MEDS: Insulin LISPRO 300 UNITS/3 ML VIAL SQ SCH ×7 (08:12→21:00)
[2019-06-03] MEDS ORDERED: Insulin DETEMIR 100 UNIT/ML X5UNITS SQ SCH (09:00)
[2019-06-03] MEDS: levETIRAcetam 250 MG TABLET PO SCH ×2 (10:39→20:58)
[2019-06-03] MEDS ORDERED: *HR* Warfarin 4 MG TABLET PO ONE (18:00)
[2019-06-03] MEDS: Warfarin perPT PO SCH (18:57)
[2019-06-04] MEDS: *HR* OxyCODONE Immed Rel 5 MG TABLET PO PRN ×4 (00:28→18:06)
[2019-06-04] MEDS: Ascorbic Acid 500 MG TABLET PO SCH (06:17)
[2019-06-04 06:25] LABS: Hemoglobin 11.2 g/dL (11.5-15.4); Mean Corpuscular HGB Conc 30.3 g/dL (31.6-35.5); Mean Corpuscular Hemoglobin 25.3 pg (28.0-33.3); Mean Corpuscular Volume 83.5 fL (83.0-100.0); Mean Platelet Volume 10.8 fL (9.4-12.4); Platelet Count 239 K/mcL (140-400); Red Blood Count 4.43 M/mcL (3.82-4.97); Red Cell Distribution Width 17.6 % (11.5-14.5); White Blood Count 7.1 K/mcL (4.3-11.1)
[2019-06-04 06:32] LABS: INR 2.2; Prothrombin Time 24.8 Seconds (9.4-12.1)
[2019-06-04 06:46] LABS: Calcium 8.7 mg/dL (8.6-10.3); Potassium 4.2 mEq/L (3.5-5.1)
[2019-06-04] MEDS: Gabapentin 300 MG CAPSULE PO SCH ×3 (08:40→20:46)
[2019-06-04] MEDS: Cholecalciferol (D-3) 1,000 UNIT (25MCG) TABLET PO SCH (08:41)
[2019-06-04] MEDS: *HR* Amiodarone 200 MG TABLET PO SCH (08:41)
[2019-06-04] MEDS: Metoprolol XL (24 HR) Succ 50 MG TAB.ER.24H PO SCH (08:41)
[2019-06-04] MEDS: Furosemide 40 MG TABLET PO SCH ×2 (08:42→17:34)
[2019-06-04] MEDS: levETIRAcetam 250 MG TABLET PO SCH ×2 (08:43→20:45)
[2019-06-04] MEDS: Insulin LISPRO 300 UNITS/3 ML VIAL SQ SCH ×7 (08:43→20:47)
[2019-06-04] MEDS: Insulin DETEMIR 100 UNIT/ML X5UNITS SQ SCH ×2 (09:11→20:45)
[2019-06-04] MEDS: *HR* HYDROcodone/Acet 5/325 mg TABLET PO PRN ×2 (09:11→15:49)
[2019-06-04] MEDS ORDERED: Ondansetron Oral Soln 2 MG/2.5 ML ORAL.SYG PO PRN (09:31)
[2019-06-04] MEDS: Budesonide/Formoterol 160/4.5 1 PUFF INH IH SCH ×2 (10:43→22:05)
[2019-06-04] MEDS: Nystatin POWDER 30 GM BOTTLE TP SCH ×2 (17:36→20:47)
[2019-06-04] MEDS: Warfarin perPT PO SCH (18:00)
[2019-06-04] MEDS ORDERED: *HR* Warfarin 3 MG TABLET PO ONE (18:00)
[2019-06-05] MEDS: *HR* OxyCODONE Immed Rel 5 MG TABLET PO PRN ×4 (04:44→18:03)
[2019-06-05 05:39] LABS: INR 2.4; Prothrombin Time 26.8 Seconds (9.4-12.1)
[2019-06-05] MEDS: Ascorbic Acid 500 MG TABLET PO SCH (06:20)
[2019-06-05] MEDS: Gabapentin 300 MG CAPSULE PO SCH ×3 (08:57→20:51)
[2019-06-05] MEDS: Furosemide 40 MG TABLET PO SCH ×2 (08:57→17:58)
[2019-06-05] MEDS: levETIRAcetam 250 MG TABLET PO SCH ×2 (08:58→20:51)
[2019-06-05] MEDS: *HR* Amiodarone 200 MG TABLET PO SCH (08:58)
[2019-06-05] MEDS: Metoprolol XL (24 HR) Succ 50 MG TAB.ER.24H PO SCH (08:58)
[2019-06-05] MEDS: Insulin DETEMIR 100 UNIT/ML X5UNITS SQ SCH ×2 (08:58→20:52)
[2019-06-05] MEDS: Cholecalciferol (D-3) 1,000 UNIT (25MCG) TABLET PO SCH (08:58)
[2019-06-05] MEDS: Insulin LISPRO 300 UNITS/3 ML VIAL SQ SCH ×7 (08:59→20:51)
[2019-06-05] MEDS: Nystatin POWDER 30 GM BOTTLE TP SCH ×2 (09:00→20:50)
[2019-06-05] MEDS: Budesonide/Formoterol 160/4.5 1 PUFF INH IH SCH ×2 (10:35→19:25)
[2019-06-05] MEDS: *HR* FentaNYL PATCH 25 MCG PATCH TD SCH (12:30)
[2019-06-05] MEDS: Warfarin perPT PO SCH (17:58)
[2019-06-05] MEDS ORDERED: *HR* Warfarin 3 MG TABLET PO ONE (18:00)
[2019-06-06 05:59] LABS: Basophils % 0.6 %; Eosinophils # 0.4 K/mcL (0.0-0.6); Eosinophils % 5.8 %; Hematocrit 37.9 % (35.3-44.9); Hemoglobin 11.4 g/dL (11.5-15.4); Immature Granulocytes % 0.6 % (0-4); Lymphocytes # 2.1 K/mcL (0.6-4.6); Lymphocytes % 31.8 %; Mean Corpuscular HGB Conc 30.1 g/dL (31.6-35.5); Mean Corpuscular Hemoglobin 25.1 pg (28.0-33.3); Mean Corpuscular Volume 83.5 fL (83.0-100.0); Mean Platelet Volume 10.7 fL (9.4-12.4); Monocytes # 0.5 K/mcL (0.0-1.3); Monocytes % 7.6 %; Neutrophils # 3.6 K/mcL (1.6-8.9); Platelet Count 262 K/mcL (140-400); Red Blood Count 4.54 M/mcL (3.82-4.97); Red Cell Distribution Width 17.4 % (11.5-14.5); Segmented Neutrophils % 53.6 %; White Blood Count 6.7 K/mcL (4.3-11.1)
[2019-06-06 06:01] LABS: INR 2.4; Prothrombin Time 27.3 Seconds (9.4-12.1)
[2019-06-06 06:24] LABS: Calcium 9.1 mg/dL (8.6-10.3); Phosphorous 3.5 mg/dL (2.7-4.5); Potassium 3.8 mEq/L (3.5-5.1)
[2019-06-06] MEDS: Ascorbic Acid 500 MG TABLET PO SCH (06:49)
[2019-06-06] MEDS: Budesonide/Formoterol 160/4.5 1 PUFF INH IH SCH ×2 (07:30→22:25)
[2019-06-06] MEDS: Cholecalciferol (D-3) 1,000 UNIT (25MCG) TABLET PO SCH (08:09)
[2019-06-06] MEDS: Furosemide 40 MG TABLET PO SCH ×2 (08:10→17:50)
[2019-06-06] MEDS: *HR* OxyCODONE Immed Rel 5 MG TABLET PO PRN ×3 (08:10→21:00)
[2019-06-06] MEDS: *HR* Amiodarone 200 MG TABLET PO SCH (08:10)
[2019-06-06] MEDS: Metoprolol XL (24 HR) Succ 50 MG TAB.ER.24H PO SCH (08:10)
[2019-06-06] MEDS: levETIRAcetam 250 MG TABLET PO SCH ×2 (08:10→21:00)
[2019-06-06] MEDS: Gabapentin 300 MG CAPSULE PO SCH ×3 (08:10→21:00)
[2019-06-06] MEDS: Insulin LISPRO 300 UNITS/3 ML VIAL SQ SCH ×7 (08:11→21:01)
[2019-06-06] MEDS: Nystatin POWDER 30 GM BOTTLE TP SCH ×2 (08:13→21:01)
[2019-06-06] MEDS: Insulin DETEMIR 100 UNIT/ML X5UNITS SQ SCH ×2 (08:19→21:01)
[2019-06-06] MEDS ORDERED: Sennosides/Docusate Sodium TABLET PO PRN (12:04)
[2019-06-06] MEDS ORDERED: *HR* Warfarin 3 MG TABLET PO ONE (18:00)
[2019-06-06] MEDS: Warfarin perPT PO SCH (19:21)
[2019-06-07] MEDS: Ascorbic Acid 500 MG TABLET PO SCH (05:09)
[2019-06-07 06:57] LABS: INR 2.4; Prothrombin Time 27.6 Seconds (9.4-12.1)
[2019-06-07] MEDS: Budesonide/Formoterol 160/4.5 1 PUFF INH IH SCH ×2 (07:43→20:27)
[2019-06-07] MEDS: Furosemide 40 MG TABLET PO SCH ×2 (08:34→16:52)
[2019-06-07] MEDS: Cholecalciferol (D-3) 1,000 UNIT (25MCG) TABLET PO SCH (08:34)
[2019-06-07] MEDS: *HR* Amiodarone 200 MG TABLET PO SCH (08:35)
[2019-06-07] MEDS: levETIRAcetam 250 MG TABLET PO SCH ×2 (08:35→21:39)
[2019-06-07] MEDS: Metoprolol XL (24 HR) Succ 50 MG TAB.ER.24H PO SCH (08:36)
[2019-06-07] MEDS: Gabapentin 300 MG CAPSULE PO SCH ×3 (08:36→21:39)
[2019-06-07] MEDS: *HR* OxyCODONE Immed Rel 5 MG TABLET PO PRN ×3 (08:38→21:22)
[2019-06-07] MEDS: Insulin LISPRO 300 UNITS/3 ML VIAL SQ SCH ×7 (08:40→21:38)
[2019-06-07] MEDS: Insulin DETEMIR 100 UNIT/ML X5UNITS SQ SCH ×2 (08:41→21:38)
[2019-06-07] MEDS: Nystatin POWDER 30 GM BOTTLE TP SCH ×2 (08:44→21:40)
[2019-06-07] MEDS: Warfarin perPT PO SCH (17:07)
[2019-06-07] MEDS ORDERED: *HR* Warfarin 3 MG TABLET PO ONE (18:00)
[2019-06-08] MEDS: *HR* OxyCODONE Immed Rel 5 MG TABLET PO PRN ×4 (01:39→22:39)
[2019-06-08 01:54] LABS: INR 2.6; Prothrombin Time 29.6 Seconds (9.4-12.1)
[2019-06-08] MEDS: Ascorbic Acid 500 MG TABLET PO SCH (07:01)
[2019-06-08] MEDS: Budesonide/Formoterol 160/4.5 1 PUFF INH IH SCH ×2 (07:32→19:41)
[2019-06-08] MEDS: Insulin LISPRO 300 UNITS/3 ML VIAL SQ SCH ×7 (09:50→20:58)
[2019-06-08] MEDS: levETIRAcetam 250 MG TABLET PO SCH ×2 (09:51→20:57)
[2019-06-08] MEDS: Cholecalciferol (D-3) 1,000 UNIT (25MCG) TABLET PO SCH (09:52)
[2019-06-08] MEDS: Insulin DETEMIR 100 UNIT/ML X5UNITS SQ SCH ×2 (09:52→20:57)
[2019-06-08] MEDS: Furosemide 40 MG TABLET PO SCH ×2 (09:52→17:45)
[2019-06-08] MEDS: *HR* Amiodarone 200 MG TABLET PO SCH (09:52)
[2019-06-08] MEDS: Gabapentin 300 MG CAPSULE PO SCH ×3 (09:52→20:56)
[2019-06-08] MEDS: Metoprolol XL (24 HR) Succ 50 MG TAB.ER.24H PO SCH (09:52)
[2019-06-08] MEDS: Nystatin POWDER 30 GM BOTTLE TP SCH (09:53)
[2019-06-08] MEDS: *HR* FentaNYL PATCH 25 MCG PATCH TD SCH (13:11)
[2019-06-08] MEDS: Warfarin perPT PO SCH (17:58)
[2019-06-08] MEDS ORDERED: *HR* Warfarin 3 MG TABLET PO ONE (18:00)
[2019-06-09] MEDS: Nystatin POWDER 30 GM BOTTLE TP SCH ×3 (00:20→21:41)
[2019-06-09 01:27] LABS: INR 2.5; Prothrombin Time 28.3 Seconds (9.4-12.1)
[2019-06-09] MEDS: *HR* OxyCODONE Immed Rel 5 MG TABLET PO PRN ×4 (06:30→23:06)
[2019-06-09] MEDS: Ascorbic Acid 500 MG TABLET PO SCH (06:31)
[2019-06-09] MEDS: Budesonide/Formoterol 160/4.5 1 PUFF INH IH SCH ×2 (07:57→20:03)
[2019-06-09] MEDS: levETIRAcetam 250 MG TABLET PO SCH ×2 (09:44→20:49)
[2019-06-09] MEDS: Cholecalciferol (D-3) 1,000 UNIT (25MCG) TABLET PO SCH (09:44)
[2019-06-09] MEDS: Metoprolol XL (24 HR) Succ 50 MG TAB.ER.24H PO SCH (09:44)
[2019-06-09] MEDS: Gabapentin 300 MG CAPSULE PO SCH ×3 (09:45→20:49)
[2019-06-09] MEDS: *HR* Amiodarone 200 MG TABLET PO SCH (09:45)
[2019-06-09] MEDS: Furosemide 40 MG TABLET PO SCH ×2 (09:45→17:03)
[2019-06-09] MEDS: *HR* HYDROcodone/Acet 5/325 mg TABLET PO PRN (09:45)
[2019-06-09] MEDS: Insulin LISPRO 300 UNITS/3 ML VIAL SQ SCH ×6 (09:46→20:51)
[2019-06-09] MEDS ORDERED: *HR* Warfarin 3 MG TABLET PO ONE (18:00)
[2019-06-09] MEDS: Warfarin perPT PO SCH (20:44)
[2019-06-09] MEDS: Insulin DETEMIR 100 UNIT/ML X5UNITS SQ SCH (20:51)
[2019-06-10] MEDS: Ascorbic Acid 500 MG TABLET PO SCH (06:57)
[2019-06-10] MEDS: *HR* OxyCODONE Immed Rel 5 MG TABLET PO PRN ×3 (06:57→18:28)
[2019-06-10 07:28] LABS: Basophils % 0.3 %; Eosinophils # 0.3 K/mcL (0.0-0.6); Eosinophils % 5.6 %; Hematocrit 38.6 % (35.3-44.9); Hemoglobin 11.4 g/dL (11.5-15.4); Lymphocytes # 1.9 K/mcL (0.6-4.6); Lymphocytes % 32.8 %; Mean Corpuscular HGB Conc 29.5 g/dL (31.6-35.5); Mean Corpuscular Volume 84.6 fL (83.0-100.0); Mean Platelet Volume 10.2 fL (9.4-12.4); Monocytes # 0.4 K/mcL (0.0-1.3); Monocytes % 6.6 %; Neutrophils # 3.2 K/mcL (1.6-8.9); Platelet Count 259 K/mcL (140-400); Red Blood Count 4.56 M/mcL (3.82-4.97); Red Cell Distribution Width 17.1 % (11.5-14.5); Segmented Neutrophils % 53.7 %; White Blood Count 5.9 K/mcL (4.3-11.1)
[2019-06-10 07:37] LABS: Prothrombin Time 33.8 Seconds (9.4-12.1)
[2019-06-10 07:49] LABS: Calcium 9.1 mg/dL (8.6-10.3); Magnesium 2.2 mg/dL (1.6-2.6); Phosphorous 3.7 mg/dL (2.7-4.5); Potassium 4.2 mEq/L (3.5-5.1)
[2019-06-10] MEDS: Furosemide 40 MG TABLET PO SCH ×2 (08:04→16:19)
[2019-06-10] MEDS: Gabapentin 300 MG CAPSULE PO SCH ×3 (08:04→21:44)
[2019-06-10] MEDS: Metoprolol XL (24 HR) Succ 50 MG TAB.ER.24H PO SCH (08:04)
[2019-06-10] MEDS: Cholecalciferol (D-3) 1,000 UNIT (25MCG) TABLET PO SCH (08:04)
[2019-06-10] MEDS: *HR* Amiodarone 200 MG TABLET PO SCH (08:04)
[2019-06-10] MEDS: levETIRAcetam 250 MG TABLET PO SCH ×2 (08:05→21:43)
[2019-06-10] MEDS: Insulin LISPRO 300 UNITS/3 ML VIAL SQ SCH ×7 (08:10→21:51)
[2019-06-10] MEDS: Insulin DETEMIR 100 UNIT/ML X5UNITS SQ SCH ×2 (08:11→22:37)
[2019-06-10] MEDS: Nystatin POWDER 30 GM BOTTLE TP SCH ×2 (08:13→22:16)
[2019-06-10] MEDS: Budesonide/Formoterol 160/4.5 1 PUFF INH IH SCH ×2 (08:17→23:14)
[2019-06-10] MEDS: Warfarin perPT PO SCH (18:32)
[2019-06-11] MEDS: *HR* OxyCODONE Immed Rel 5 MG TABLET PO PRN ×4 (03:57→21:47)
[2019-06-11] MEDS: Ascorbic Acid 500 MG TABLET PO SCH (06:16)
[2019-06-11 07:55] LABS: INR 2.9; Prothrombin Time 33.1 Seconds (9.4-12.1)
[2019-06-11] MEDS: Insulin DETEMIR 100 UNIT/ML X5UNITS SQ SCH ×2 (08:26→20:37)
[2019-06-11] MEDS: *HR* Amiodarone 200 MG TABLET PO SCH (08:26)
[2019-06-11] MEDS: Cholecalciferol (D-3) 1,000 UNIT (25MCG) TABLET PO SCH (08:26)
[2019-06-11] MEDS: levETIRAcetam 250 MG TABLET PO SCH ×2 (08:26→20:37)
[2019-06-11] MEDS: Gabapentin 300 MG CAPSULE PO SCH ×3 (08:26→20:37)
[2019-06-11] MEDS: Furosemide 40 MG TABLET PO SCH ×2 (08:26→17:14)
[2019-06-11] MEDS: Metoprolol XL (24 HR) Succ 50 MG TAB.ER.24H PO SCH (08:26)
[2019-06-11] MEDS: Nystatin POWDER 30 GM BOTTLE TP SCH ×2 (08:27→20:39)
[2019-06-11] MEDS: Insulin LISPRO 300 UNITS/3 ML VIAL SQ SCH ×7 (08:33→20:38)
[2019-06-11] MEDS: Budesonide/Formoterol 160/4.5 1 PUFF INH IH SCH ×2 (10:20→20:54)
[2019-06-11] MEDS: *HR* FentaNYL PATCH 25 MCG PATCH TD SCH (11:38)
[2019-06-11] MEDS ORDERED: *HR* LORazepam 1 MG TABLET PO PRN (12:11)
[2019-06-11] MEDS: Warfarin perPT PO SCH (17:25)
[2019-06-11] MEDS ORDERED: *HR* Warfarin 3 MG TABLET PO ONE (18:00)
[2019-06-12 01:48] LABS: Basophils % 0.3 %; Eosinophils # 0.3 K/mcL (0.0-0.6); Eosinophils % 4.7 %; Hematocrit 37.6 % (35.3-44.9); Hemoglobin 11.2 g/dL (11.5-15.4); Immature Granulocytes % 1.1 % (0-4); Lymphocytes # 1.9 K/mcL (0.6-4.6); Lymphocytes % 29.7 %; Mean Corpuscular HGB Conc 29.8 g/dL (31.6-35.5); Mean Corpuscular Hemoglobin 25.1 pg (28.0-33.3); Mean Corpuscular Volume 84.1 fL (83.0-100.0); Mean Platelet Volume 9.9 fL (9.4-12.4); Monocytes # 0.5 K/mcL (0.0-1.3); Monocytes % 7.5 %; Neutrophils # 3.7 K/mcL (1.6-8.9); Platelet Count 259 K/mcL (140-400); Red Blood Count 4.47 M/mcL (3.82-4.97); Segmented Neutrophils % 56.7 %; White Blood Count 6.5 K/mcL (4.3-11.1)
[2019-06-12 01:55] LABS: INR 2.6; Prothrombin Time 29.8 Seconds (9.4-12.1)
[2019-06-12 02:08] LABS: Calcium 8.9 mg/dL (8.6-10.3); Phosphorous 3.7 mg/dL (2.7-4.5); Potassium 4.2 mEq/L (3.5-5.1)
[2019-06-12] MEDS: Ascorbic Acid 500 MG TABLET PO SCH (05:41)
[2019-06-12] MEDS: Budesonide/Formoterol 160/4.5 1 PUFF INH IH SCH ×2 (07:32→22:04)
[2019-06-12] MEDS: *HR* OxyCODONE Immed Rel 5 MG TABLET PO PRN ×3 (08:49→22:26)
[2019-06-12] MEDS: Cholecalciferol (D-3) 1,000 UNIT (25MCG) TABLET PO SCH (08:49)
[2019-06-12] MEDS: *HR* Amiodarone 200 MG TABLET PO SCH (08:49)
[2019-06-12] MEDS: Gabapentin 300 MG CAPSULE PO SCH ×3 (08:49→22:20)
[2019-06-12] MEDS: Furosemide 40 MG TABLET PO SCH ×2 (08:49→16:47)
[2019-06-12] MEDS: Metoprolol XL (24 HR) Succ 50 MG TAB.ER.24H PO SCH (08:49)
[2019-06-12] MEDS: levETIRAcetam 250 MG TABLET PO SCH ×2 (08:50→22:20)
[2019-06-12] MEDS: Insulin DETEMIR 100 UNIT/ML X5UNITS SQ SCH ×2 (08:50→22:20)
[2019-06-12] MEDS: Nystatin POWDER 30 GM BOTTLE TP SCH ×2 (08:51→22:21)
[2019-06-12] MEDS: Insulin LISPRO 300 UNITS/3 ML VIAL SQ SCH ×7 (08:51→22:19)
[2019-06-12] MEDS: Warfarin perPT PO SCH (16:57)
[2019-06-12] MEDS ORDERED: *HR* Warfarin 3 MG TABLET PO ONE (18:00)
[2019-06-13] MEDS: Ascorbic Acid 500 MG TABLET PO SCH (05:44)
[2019-06-13 06:33] LABS: INR 2.5; Prothrombin Time 28.4 Seconds (9.4-12.1)
[2019-06-13] MEDS: Budesonide/Formoterol 160/4.5 1 PUFF INH IH SCH ×2 (07:37→21:52)
[2019-06-13] MEDS: *HR* Amiodarone 200 MG TABLET PO SCH (09:12)
[2019-06-13] MEDS: Metoprolol XL (24 HR) Succ 50 MG TAB.ER.24H PO SCH (09:12)
[2019-06-13] MEDS: Insulin LISPRO 300 UNITS/3 ML VIAL SQ SCH ×7 (09:12→21:38)
[2019-06-13] MEDS: Cholecalciferol (D-3) 1,000 UNIT (25MCG) TABLET PO SCH (09:12)
[2019-06-13] MEDS: Gabapentin 300 MG CAPSULE PO SCH ×3 (09:12→21:56)
[2019-06-13] MEDS: levETIRAcetam 250 MG TABLET PO SCH ×2 (09:12→21:57)
[2019-06-13] MEDS: Furosemide 40 MG TABLET PO SCH ×2 (09:12→17:38)
[2019-06-13] MEDS: Insulin DETEMIR 100 UNIT/ML X5UNITS SQ SCH ×2 (09:13→21:52)
[2019-06-13] MEDS: Warfarin perPT PO SCH (17:42)
[2019-06-13] MEDS: *HR* OxyCODONE Immed Rel 5 MG TABLET PO PRN ×2 (17:49→22:00)
[2019-06-13] MEDS: Nystatin POWDER 30 GM BOTTLE TP SCH ×2 (17:54→22:02)
[2019-06-13] MEDS ORDERED: *HR* Warfarin 3 MG TABLET PO ONE (18:00)
[2019-06-14] MEDS: Insulin LISPRO 300 UNITS/3 ML VIAL SQ SCH ×8 (00:39→22:40)
[2019-06-14 02:20] LABS: Basophils % 0.6 %; Eosinophils # 0.4 K/mcL (0.0-0.6); Eosinophils % 5.3 %; Hematocrit 38.9 % (35.3-44.9); Hemoglobin 11.8 g/dL (11.5-15.4); Immature Granulocytes % 0.7 % (0-4); Lymphocytes # 1.9 K/mcL (0.6-4.6); Lymphocytes % 27.4 %; Mean Corpuscular HGB Conc 30.3 g/dL (31.6-35.5); Mean Corpuscular Hemoglobin 25.1 pg (28.0-33.3); Mean Corpuscular Volume 82.6 fL (83.0-100.0); Mean Platelet Volume 10.1 fL (9.4-12.4); Monocytes # 0.4 K/mcL (0.0-1.3); Monocytes % 6.5 %; Platelet Count 258 K/mcL (140-400); Red Blood Count 4.71 M/mcL (3.82-4.97); Segmented Neutrophils % 59.5 %; White Blood Count 6.8 K/mcL (4.3-11.1)
[2019-06-14 02:38] LABS: INR 2.2; Prothrombin Time 24.6 Seconds (9.4-12.1)
[2019-06-14] MEDS: Ascorbic Acid 500 MG TABLET PO SCH (05:39)
[2019-06-14] MEDS: Budesonide/Formoterol 160/4.5 1 PUFF INH IH SCH ×2 (08:13→20:06)
[2019-06-14] MEDS: Insulin DETEMIR 100 UNIT/ML X5UNITS SQ SCH ×2 (08:44→22:40)
[2019-06-14] MEDS: Furosemide 40 MG TABLET PO SCH ×2 (08:45→17:21)
[2019-06-14] MEDS: *HR* Amiodarone 200 MG TABLET PO SCH (08:45)
[2019-06-14] MEDS: Metoprolol XL (24 HR) Succ 50 MG TAB.ER.24H PO SCH (08:45)
[2019-06-14] MEDS: Cholecalciferol (D-3) 1,000 UNIT (25MCG) TABLET PO SCH (08:45)
[2019-06-14] MEDS: levETIRAcetam 250 MG TABLET PO SCH ×2 (08:46→22:40)
[2019-06-14] MEDS: Gabapentin 300 MG CAPSULE PO SCH ×3 (08:46→22:40)
[2019-06-14] MEDS: *HR* OxyCODONE Immed Rel 5 MG TABLET PO PRN ×2 (08:53→13:58)
[2019-06-14] MEDS: *HR* FentaNYL PATCH 25 MCG PATCH TD SCH (12:06)
[2019-06-14] MEDS: Warfarin perPT PO SCH (17:22)
[2019-06-14] MEDS: Nystatin POWDER 30 GM BOTTLE TP SCH (17:36)
[2019-06-14] MEDS ORDERED: *HR* Warfarin 3 MG TABLET PO ONE (18:00)
[2019-06-15] MEDS: Nystatin POWDER 30 GM BOTTLE TP SCH (03:40)
[2019-06-15] MEDS ORDERED: Insulin DETEMIR 100 UNIT/ML X5UNITS SQ ONE (03:57)
[2019-06-15 04:53] LABS: INR 2.1; Prothrombin Time 23.6 Seconds (9.4-12.1)
[2019-06-15] MEDS: Ascorbic Acid 500 MG TABLET PO SCH (05:44)
[2019-06-15] MEDS: Budesonide/Formoterol 160/4.5 1 PUFF INH IH SCH (07:56)
[2019-06-15 10:32] VITALS: BP 132/72
[2019-06-15] MEDS: Furosemide 40 MG TABLET PO SCH (10:40)
[2019-06-15] MEDS: Metoprolol XL (24 HR) Succ 50 MG TAB.ER.24H PO SCH (10:40)
[2019-06-15] MEDS: levETIRAcetam 250 MG TABLET PO SCH (10:41)
[2019-06-15] MEDS: Gabapentin 300 MG CAPSULE PO SCH (10:41)
[2019-06-15] MEDS: Cholecalciferol (D-3) 1,000 UNIT (25MCG) TABLET PO SCH (10:41)
[2019-06-15] MEDS: *HR* Amiodarone 200 MG TABLET PO SCH (10:41)
[2019-06-15] MEDS: Insulin LISPRO 300 UNITS/3 ML VIAL SQ SCH ×2 (10:42→10:43)
[2019-06-15] MEDS: Insulin DETEMIR 100 UNIT/ML X5UNITS SQ SCH (10:42)
[2019-06-15] MEDS: *HR* OxyCODONE Immed Rel 5 MG TABLET PO PRN (10:48)
== END 2019-06-15 13:30 | disposition home or self-care (01) | DRG 534 ==
LOC: 3NENU → INTOOBSV 01:19 → SUATTDRO 01:19
PROVIDERS: ADMIT Pediatrics; ATTEND Internal Medicine

== ENCOUNTER 2020-07-30 16:08 | Inpatient (IN) ==
[2020-07-30 19:55] LABS: Adenovirus Not Detected (Not Detect); Coronavirus 229E Not Detected (Not Detect); Coronavirus HKU1 Not Detected (Not Detect); Coronavirus NL63 Not Detected (Not Detect); Coronavirus OC43 Not Detected (Not Detect)
[2020-07-30 19:56] LABS: Bordetella Pertussis Not Detected (Not Detect); Chlamydophila pneumoniae Not Detected (Not Detect); Human Metapneumovirus Not Detected (Not Detect); Human Rhinovirus/Enterovirus Not Detected (Not Detect); Influenza A Subtype 2009 H1 Not Detected (Not Detect); Influenza B Not Detected (Not Detect); Mycoplasma pneumoniae Not Detected (Not Detect); Parainfluenza Virus 1 Not Detected (Not Detect); Parainfluenza Virus 2 Not Detected (Not Detect); Parainfluenza Virus 3 Not Detected (Not Detect); Parainfluenza Virus 4 Not Detected (Not Detect); Respiratory Syncytial Virus Not Detected (Not Detect); SARS-CoV-2 Not Detected (Not Detect)
[2020-07-30] MEDS ORDERED: Ondansetron 4 MG/2 ML VIAL IVP PRN (22:08)
[2020-07-30] MEDS ORDERED: Naloxone 0.4 MG/ML INJ IVP PRN (22:08)
[2020-07-30] MEDS ORDERED: D5% in Water 1,000 ML IVC PRN (22:11)
[2020-07-30] MEDS ORDERED: Dextrose Gel 15 GM/37.5 ML TUBE PO PRN ×2 (22:11)
[2020-07-30] MEDS ORDERED: *HR* Dextrose 50 % in Water (Vial) 50 ML VIAL IVP PRN (22:11)
[2020-07-30] MEDS ORDERED: Ringers Solution, Lactated 1,000 ML IVC SCH (22:15)
[2020-07-30 22:45] LABS: Basophils % 0.6 %; Eosinophils % 0.2 %; Hematocrit 48.4 % (35.3-44.9); Hemoglobin 14.4 g/dL (11.5-15.4); Immature Granulocytes % 0.8 % (0-4); Lymphocytes # 0.5 K/mcL (0.6-4.6); Lymphocytes % 10.4 %; Mean Corpuscular HGB Conc 29.8 g/dL (31.6-35.5); Mean Platelet Volume 10.7 fL (9.4-12.4); Monocytes % 0.6 %; Neutrophils # 4.3 K/mcL (1.6-8.9); Platelet Count 226 K/mcL (140-400); Red Blood Count 5.76 M/mcL (3.82-4.97); Red Cell Distribution Width 17.8 % (11.5-14.5); Segmented Neutrophils % 87.4 %; White Blood Count 4.9 K/mcL (4.3-11.1)
[2020-07-30 23:08] LABS: Alanine Aminotransferase 6 Units/L (7-52); Albumin 3.6 g/dL (3.5-5.7); Alkaline Phosphatase 67 Units/L (34-104); Aspartate Amino Transferase 12 Units/L (13-39); BUN/Creatinine Ratio 15 (6-26); Bilirubin,Total 0.5 mg/dL (0.3-1.0); Blood Urea Nitrogen 16 mg/dL (6-20); Carbon Dioxide 31 mEq/L (23-29); Chloride 94 mEq/L (98-107); Globulin 3.6 g/dL (2.4-3.5); Glucose 456 mg/dL (70-105); Osmolality,Calculated 303 (280-300); Potassium 4.3 mEq/L (3.5-5.1); Sodium 136 mEq/L (136-145); Total Protein 7.2 g/dL (6.4-8.9); eGFR For African Americans > 60 (> 60); eGFR For Non-African Americans 54 (> 60)
[2020-07-31 03:18] LABS: Basophils % 0.3 %; Hematocrit 46.8 % (35.3-44.9); Hemoglobin 14.3 g/dL (11.5-15.4); Immature Granulocytes % 0.7 % (0-4); Lymphocytes # 0.6 K/mcL (0.6-4.6); Mean Corpuscular HGB Conc 30.6 g/dL (31.6-35.5); Mean Corpuscular Hemoglobin 25.9 pg (28.0-33.3); Mean Corpuscular Volume 84.8 fL (83.0-100.0); Monocytes % 0.5 %; Neutrophils # 5.3 K/mcL (1.6-8.9); Platelet Count 226 K/mcL (140-400); Red Blood Count 5.52 M/mcL (3.82-4.97); Red Cell Distribution Width 17.2 % (11.5-14.5); Segmented Neutrophils % 88.5 %
[2020-07-31 03:25] LABS: INR 2.6; Prothrombin Time 29.4 Seconds (9.4-12.1)
[2020-07-31 03:31] LABS: Alanine Aminotransferase 6 Units/L (7-52); Albumin 3.6 g/dL (3.5-5.7); Alkaline Phosphatase 68 Units/L (34-104); Aspartate Amino Transferase 11 Units/L (13-39); BUN/Creatinine Ratio 16 (6-26); Bilirubin,Total 0.5 mg/dL (0.3-1.0); Blood Urea Nitrogen 16 mg/dL (6-20); Calcium 9.1 mg/dL (8.6-10.3); Carbon Dioxide 26 mEq/L (23-29); Chloride 93 mEq/L (98-107); Chol/HDL Ratio 5.8 (0-4.9); Cholesterol 161 mg/dL (< 200); Globulin 3.7 g/dL (2.4-3.5); Glucose 439 mg/dL (70-105); HDL Cholesterol 28 mg/dL (40-59); LDL Cholesterol,Calculated 89 mg/dL (< 100); Magnesium 1.9 mg/dL (1.6-2.6); Osmolality,Calculated 296 (280-300); Potassium 3.9 mEq/L (3.5-5.1); Sodium 133 mEq/L (136-145); Total Protein 7.3 g/dL (6.4-8.9); Triglycerides 220 mg/dL (< 150); eGFR For African Americans > 60 (> 60); eGFR For Non-African Americans > 60 (> 60)
[2020-07-31 04:26] LABS: Anisocytosis 1+ (Not Present); Microcytosis Present (Not Present)
[2020-07-31 04:27] LABS: Platelet Estimate Normal (Normal); Toxic Granulation Present (Not Present)
[2020-07-31 04:28] LABS: Reactive Lymphocytes Present (Not Present)
[2020-07-31] MEDS ORDERED: *HR* LORazepam 1 MG TABLET PO ONE (04:42)
[2020-07-31] MEDS: Doxycycline 100 MG in 0.9 % Sodium Chloride Mini Bag 100 ML IVPB SCH ×2 (04:54→18:28)
[2020-07-31] MEDS ORDERED: Insulin LISPRO 300 UNITS/3 ML VIAL SQ SCH (07:30)
[2020-07-31] MEDS: levETIRAcetam 250 MG TABLET PO SCH ×2 (07:57→20:30)
[2020-07-31] MEDS: Metoprolol XL (24 HR) Succ 50 MG TAB.ER.24H PO SCH (07:57)
[2020-07-31] MEDS: *HR* Amiodarone 200 MG TABLET PO SCH (07:57)
[2020-07-31] MEDS: Gabapentin 300 MG CAPSULE PO SCH ×3 (07:57→20:31)
[2020-07-31] MEDS: cefTRIAXone 1,000 MG in Water for inj. (sterile) 10 ML IVP SCH (08:00)
[2020-07-31] MEDS: Insulin LISPRO 300 UNITS/3 ML VIAL SQ SCH ×5 (11:59→20:36)
[2020-07-31] MEDS: Insulin DETEMIR 100 UNIT/ML X5UNITS SQ SCH (12:59)
[2020-07-31] MEDS: Ipratropium/Albuterol Neb 3 ML IH SCH ×4 (13:53→23:14)
[2020-07-31] MEDS ORDERED: Warfarin perPT PO PRN (18:00)
[2020-07-31] MEDS ORDERED: *HR* Warfarin 3 MG TABLET PO ONE (18:00)
[2020-07-31] MEDS: *HR* OxyCODONE Immed Rel 5 MG TABLET PO PRN (18:29)
[2020-07-31] MEDS ORDERED: Insulin DETEMIR 100 UNIT/ML X5UNITS SQ SCH (21:00)
[2020-08-01 01:35] LABS: Basophils # 0.1 K/mcL (0.0-0.2); Basophils % 0.6 %; Eosinophils # 0.1 K/mcL (0.0-0.6); Eosinophils % 0.6 %; Hematocrit 43.9 % (35.3-44.9); Hemoglobin 13.1 g/dL (11.5-15.4); Immature Granulocytes % 0.4 % (0-4); Lymphocytes # 1.9 K/mcL (0.6-4.6); Lymphocytes % 22.1 %; Mean Corpuscular HGB Conc 29.8 g/dL (31.6-35.5); Mean Corpuscular Hemoglobin 25.4 pg (28.0-33.3); Mean Corpuscular Volume 85.1 fL (83.0-100.0); Mean Platelet Volume 10.4 fL (9.4-12.4); Monocytes # 0.4 K/mcL (0.0-1.3); Monocytes % 4.6 %; Neutrophils # 6.1 K/mcL (1.6-8.9); Platelet Count 236 K/mcL (140-400); Red Blood Count 5.16 M/mcL (3.82-4.97); Segmented Neutrophils % 71.7 %; White Blood Count 8.5 K/mcL (4.3-11.1)
[2020-08-01 01:38] LABS: INR 2.3; Prothrombin Time 26.1 Seconds (9.4-12.1)
[2020-08-01 01:53] LABS: Calcium 9.6 mg/dL (8.6-10.3); Potassium 3.5 mEq/L (3.5-5.1)
[2020-08-01] MEDS: Ipratropium/Albuterol Neb 3 ML IH SCH ×6 (03:35→23:25)
[2020-08-01] MEDS: Doxycycline 100 MG in 0.9 % Sodium Chloride Mini Bag 100 ML IVPB SCH ×2 (05:22→17:44)
[2020-08-01] MEDS: Insulin LISPRO 300 UNITS/3 ML VIAL SQ SCH ×8 (05:23→22:55)
[2020-08-01] MEDS: levETIRAcetam 250 MG TABLET PO SCH ×2 (07:45→21:07)
[2020-08-01] MEDS: Metoprolol XL (24 HR) Succ 50 MG TAB.ER.24H PO SCH (07:45)
[2020-08-01] MEDS: cefTRIAXone 1,000 MG in Water for inj. (sterile) 10 ML IVP SCH (07:45)
[2020-08-01] MEDS: Gabapentin 300 MG CAPSULE PO SCH ×3 (07:46→21:08)
[2020-08-01] MEDS: *HR* Amiodarone 200 MG TABLET PO SCH (07:46)
[2020-08-01] MEDS: *HR* OxyCODONE Immed Rel 5 MG TABLET PO PRN ×3 (07:50→21:07)
[2020-08-01] MEDS: Insulin DETEMIR 100 UNIT/ML X5UNITS SQ SCH ×3 (07:51→21:08)
[2020-08-01] MEDS: 0.9 % Sodium Chloride 1,000 ML IVC SCH ×2 (09:07→22:55)
[2020-08-01] MEDS: Spironolactone 25 MG TABLET PO SCH (09:08)
[2020-08-01] MEDS ORDERED: *HR* Warfarin 1 MG TABLET PO ONE (18:00)
[2020-08-02 01:52] LABS: Basophils % 0.5 %; INR 2.2; Prothrombin Time 24.6 Seconds (9.4-12.1)
[2020-08-02 01:53] LABS: Eosinophils # 0.2 K/mcL (0.0-0.6); Eosinophils % 2.7 %; Hemoglobin 12.4 g/dL (11.5-15.4); Immature Granulocytes % 0.4 % (0-4); Lymphocytes # 1.7 K/mcL (0.6-4.6); Lymphocytes % 30.8 %; Mean Corpuscular HGB Conc 29.5 g/dL (31.6-35.5); Mean Corpuscular Hemoglobin 25.3 pg (28.0-33.3); Mean Corpuscular Volume 85.7 fL (83.0-100.0); Mean Platelet Volume 10.4 fL (9.4-12.4); Monocytes # 0.4 K/mcL (0.0-1.3); Monocytes % 6.8 %; Neutrophils # 3.3 K/mcL (1.6-8.9); Platelet Count 215 K/mcL (140-400); Red Cell Distribution Width 17.1 % (11.5-14.5); Segmented Neutrophils % 58.8 %; White Blood Count 5.6 K/mcL (4.3-11.1)
[2020-08-02 02:05] LABS: BUN/Creatinine Ratio 18 (6-26); Blood Urea Nitrogen 18 mg/dL (6-20); Calcium 9.2 mg/dL (8.6-10.3); Carbon Dioxide 30 mEq/L (23-29); Chloride 102 mEq/L (98-107); Glucose 263 mg/dL (70-105); Osmolality,Calculated 297 (280-300); Potassium 3.8 mEq/L (3.5-5.1); Sodium 138 mEq/L (136-145); eGFR For African Americans > 60 (> 60); eGFR For Non-African Americans 58 (> 60)
[2020-08-02 02:32] LABS: Platelet Estimate Normal (Normal); Reactive Lymphocytes Present (Not Present); Toxic Granulation Present (Not Present)
[2020-08-02] MEDS: Ipratropium/Albuterol Neb 3 ML IH SCH ×5 (03:40→20:03)
[2020-08-02] MEDS: Insulin LISPRO 300 UNITS/3 ML VIAL SQ SCH ×6 (05:06→20:45)
[2020-08-02] MEDS: Doxycycline 100 MG in 0.9 % Sodium Chloride Mini Bag 100 ML IVPB SCH ×2 (05:07→17:30)
[2020-08-02] MEDS: Spironolactone 25 MG TABLET PO SCH (08:33)
[2020-08-02] MEDS: Metoprolol XL (24 HR) Succ 50 MG TAB.ER.24H PO SCH (08:33)
[2020-08-02] MEDS: Insulin DETEMIR 100 UNIT/ML X5UNITS SQ SCH ×2 (08:33→20:44)
[2020-08-02] MEDS: Gabapentin 300 MG CAPSULE PO SCH ×3 (08:33→20:44)
[2020-08-02] MEDS: *HR* Amiodarone 200 MG TABLET PO SCH (08:33)
[2020-08-02] MEDS: levETIRAcetam 250 MG TABLET PO SCH ×2 (08:33→20:44)
[2020-08-02] MEDS: cefTRIAXone 1,000 MG in Water for inj. (sterile) 10 ML IVP SCH (08:34)
[2020-08-02] MEDS: *HR* OxyCODONE Immed Rel 5 MG TABLET PO PRN ×3 (08:42→20:52)
[2020-08-02] MEDS: predniSONE 20 MG TABLET PO SCH (12:32)
[2020-08-02] MEDS: 0.9 % Sodium Chloride 1,000 ML IVC SCH (15:39)
[2020-08-02] MEDS: Furosemide 40 MG TABLET PO SCH (17:30)
[2020-08-02] MEDS ORDERED: *HR* Warfarin 3 MG TABLET PO ONE (18:00)
[2020-08-03] MEDS: Ipratropium/Albuterol Neb 3 ML IH SCH ×7 (00:01→23:18)
[2020-08-03] MEDS: Insulin LISPRO 300 UNITS/3 ML VIAL SQ SCH ×6 (00:39→20:48)
[2020-08-03 01:58] LABS: INR 1.8; Prothrombin Time 20.9 Seconds (9.4-12.1)
[2020-08-03] MEDS: *HR* OxyCODONE Immed Rel 5 MG TABLET PO PRN ×4 (03:20→22:13)
[2020-08-03] MEDS: Doxycycline 100 MG in 0.9 % Sodium Chloride Mini Bag 100 ML IVPB SCH ×2 (05:35→17:49)
[2020-08-03] MEDS: 0.9 % Sodium Chloride 1,000 ML IVC SCH (05:35)
[2020-08-03] MEDS: Metoprolol XL (24 HR) Succ 50 MG TAB.ER.24H PO SCH (07:58)
[2020-08-03] MEDS: cefTRIAXone 1,000 MG in Water for inj. (sterile) 10 ML IVP SCH (07:58)
[2020-08-03] MEDS: Furosemide 40 MG TABLET PO SCH ×2 (07:59→17:52)
[2020-08-03] MEDS: Gabapentin 300 MG CAPSULE PO SCH ×3 (07:59→20:45)
[2020-08-03] MEDS: predniSONE 20 MG TABLET PO SCH (07:59)
[2020-08-03] MEDS: *HR* Amiodarone 200 MG TABLET PO SCH (07:59)
[2020-08-03] MEDS: levETIRAcetam 250 MG TABLET PO SCH ×2 (07:59→20:45)
[2020-08-03] MEDS: Spironolactone 25 MG TABLET PO SCH (08:00)
[2020-08-03] MEDS: Insulin DETEMIR 100 UNIT/ML X5UNITS SQ SCH ×2 (08:00→20:47)
[2020-08-03] MEDS ORDERED: Furosemide 40 MG TABLET PO ONE (09:45)
[2020-08-03] MEDS: *HR* Insulin Regular U-500 500 UNIT/ML SQ SCH ×3 (12:14→20:47)
[2020-08-03] MEDS ORDERED: *HR* Warfarin 3 MG TABLET PO ONE (18:00)
[2020-08-03] MEDS: Melatonin 3 MG TABLET PO PRN (22:13)
[2020-08-04] MEDS: Insulin LISPRO 300 UNITS/3 ML VIAL SQ SCH ×6 (00:10→21:05)
[2020-08-04] MEDS: Ipratropium/Albuterol Neb 3 ML IH SCH ×6 (03:53→23:11)
[2020-08-04] MEDS: *HR* OxyCODONE Immed Rel 5 MG TABLET PO PRN ×4 (04:21→17:32)
[2020-08-04 05:34] LABS: INR 1.9
[2020-08-04 05:37] LABS: Basophils % 0.6 %; Eosinophils # 0.2 K/mcL (0.0-0.6); Eosinophils % 2.3 %; Hematocrit 44.9 % (35.3-44.9); Hemoglobin 13.3 g/dL (11.5-15.4); Immature Granulocytes % 0.7 % (0-4); Lymphocytes # 2.2 K/mcL (0.6-4.6); Lymphocytes % 30.8 %; Mean Corpuscular HGB Conc 29.6 g/dL (31.6-35.5); Mean Corpuscular Volume 84.2 fL (83.0-100.0); Monocytes # 0.4 K/mcL (0.0-1.3); Monocytes % 5.8 %; Neutrophils # 4.2 K/mcL (1.6-8.9); Platelet Count 232 K/mcL (140-400); Red Blood Count 5.33 M/mcL (3.82-4.97); Red Cell Distribution Width 16.5 % (11.5-14.5); Segmented Neutrophils % 59.8 %; White Blood Count 7.1 K/mcL (4.3-11.1)
[2020-08-04 06:15] LABS: BUN/Creatinine Ratio 26 (6-26); Blood Urea Nitrogen 29 mg/dL (6-20); Calcium 9.8 mg/dL (8.6-10.3); Carbon Dioxide 29 mEq/L (23-29); Chloride 97 mEq/L (98-107); Glucose 111 mg/dL (70-105); Magnesium 1.9 mg/dL (1.6-2.6); Osmolality,Calculated 291 (280-300); Phosphorous 3.5 mg/dL (2.7-4.5); Potassium 3.4 mEq/L (3.5-5.1); Sodium 137 mEq/L (136-145); eGFR For African Americans > 60 (> 60); eGFR For Non-African Americans 51 (> 60)
[2020-08-04] MEDS: Doxycycline 100 MG in 0.9 % Sodium Chloride Mini Bag 100 ML IVPB SCH (06:23)
[2020-08-04] MEDS: *HR* Insulin Regular U-500 500 UNIT/ML SQ SCH ×3 (07:31→17:31)
[2020-08-04] MEDS: Insulin DETEMIR 100 UNIT/ML X5UNITS SQ SCH ×2 (07:31→21:05)
[2020-08-04] MEDS: Spironolactone 25 MG TABLET PO SCH (08:18)
[2020-08-04] MEDS: Metoprolol XL (24 HR) Succ 50 MG TAB.ER.24H PO SCH (08:19)
[2020-08-04] MEDS: predniSONE 20 MG TABLET PO SCH (08:19)
[2020-08-04] MEDS: Gabapentin 300 MG CAPSULE PO SCH ×3 (08:19→21:02)
[2020-08-04] MEDS: Furosemide 40 MG TABLET PO SCH ×2 (08:19→17:32)
[2020-08-04] MEDS: levETIRAcetam 250 MG TABLET PO SCH ×2 (08:19→21:01)
[2020-08-04] MEDS: *HR* Amiodarone 200 MG TABLET PO SCH (08:19)
[2020-08-04] MEDS: cefTRIAXone 1,000 MG in Water for inj. (sterile) 10 ML IVP SCH (08:19)
[2020-08-04] MEDS: Nystatin POWDER 30 GM BOTTLE TP SCH ×2 (12:49→21:07)
[2020-08-04] MEDS ORDERED: *HR* Warfarin 3 MG TABLET PO ONE (18:00)
[2020-08-04] MEDS: Doxycycline 100 MG CAPSULE PO SCH (21:01)
[2020-08-04] MEDS: Melatonin 3 MG TABLET PO PRN (21:02)
[2020-08-05] MEDS: Ipratropium/Albuterol Neb 3 ML IH SCH ×6 (03:56→23:13)
[2020-08-05 06:46] LABS: INR 2.6; Prothrombin Time 29.9 Seconds (9.4-12.1)
[2020-08-05 07:04] LABS: Calcium 9.6 mg/dL (8.6-10.3); Magnesium 1.9 mg/dL (1.6-2.6); Phosphorous 4.1 mg/dL (2.7-4.5); Potassium 3.4 mEq/L (3.5-5.1)
[2020-08-05] MEDS: Insulin LISPRO 300 UNITS/3 ML VIAL SQ SCH ×4 (08:02→20:46)
[2020-08-05] MEDS: *HR* Insulin Regular U-500 500 UNIT/ML SQ SCH ×3 (08:02→16:41)
[2020-08-05] MEDS: Insulin DETEMIR 100 UNIT/ML X5UNITS SQ SCH ×2 (08:03→20:46)
[2020-08-05] MEDS: *HR* OxyCODONE Immed Rel 5 MG TABLET PO PRN ×4 (08:09→20:43)
[2020-08-05] MEDS: Furosemide 40 MG TABLET PO SCH ×2 (08:10→16:40)
[2020-08-05] MEDS: Spironolactone 25 MG TABLET PO SCH (08:10)
[2020-08-05] MEDS: Metoprolol XL (24 HR) Succ 50 MG TAB.ER.24H PO SCH (08:10)
[2020-08-05] MEDS: levETIRAcetam 250 MG TABLET PO SCH ×2 (08:10→20:44)
[2020-08-05] MEDS: Doxycycline 100 MG CAPSULE PO SCH ×2 (08:10→20:43)
[2020-08-05] MEDS: predniSONE 20 MG TABLET PO SCH (08:10)
[2020-08-05] MEDS: Gabapentin 300 MG CAPSULE PO SCH ×3 (08:11→20:44)
[2020-08-05] MEDS: *HR* Amiodarone 200 MG TABLET PO SCH (08:11)
[2020-08-05] MEDS: Nystatin POWDER 30 GM BOTTLE TP SCH ×2 (08:13→20:46)
[2020-08-05] MEDS: cefTRIAXone 1,000 MG in Water for inj. (sterile) 10 ML IVP SCH (08:13)
[2020-08-05] MEDS ORDERED: NON-FORMULARY MEDICATION 1 EACH EACH (Oxycodone Hcl 10 MG) PO PRN (14:54)
[2020-08-05] MEDS ORDERED: *HR* Warfarin 1 MG TABLET PO ONE (18:00)
[2020-08-05] MEDS: Melatonin 3 MG TABLET PO PRN (20:49)
[2020-08-06] MEDS: Ipratropium/Albuterol Neb 3 ML IH SCH ×6 (03:35→23:06)
[2020-08-06 04:10] LABS: INR 2.7; Prothrombin Time 30.9 Seconds (9.4-12.1)
[2020-08-06 04:23] LABS: Calcium 9.1 mg/dL (8.6-10.3); Potassium 3.5 mEq/L (3.5-5.1)
[2020-08-06] MEDS: Insulin LISPRO 300 UNITS/3 ML VIAL SQ SCH ×4 (07:59→21:12)
[2020-08-06] MEDS: levETIRAcetam 250 MG TABLET PO SCH ×2 (08:24→21:10)
[2020-08-06] MEDS: cefTRIAXone 1,000 MG in Water for inj. (sterile) 10 ML IVP SCH (08:24)
[2020-08-06] MEDS: Doxycycline 100 MG CAPSULE PO SCH ×2 (08:25→21:10)
[2020-08-06] MEDS: *HR* OxyCODONE Immed Rel 5 MG TABLET PO PRN ×3 (08:26→21:11)
[2020-08-06] MEDS: Metoprolol XL (24 HR) Succ 50 MG TAB.ER.24H PO SCH (08:26)
[2020-08-06] MEDS: Spironolactone 25 MG TABLET PO SCH (08:26)
[2020-08-06] MEDS: Furosemide 40 MG TABLET PO SCH ×2 (08:26→16:56)
[2020-08-06] MEDS: predniSONE 20 MG TABLET PO SCH (08:26)
[2020-08-06] MEDS: Gabapentin 300 MG CAPSULE PO SCH ×3 (08:26→21:11)
[2020-08-06] MEDS: *HR* Amiodarone 200 MG TABLET PO SCH (08:26)
[2020-08-06] MEDS: *HR* Insulin Regular U-500 500 UNIT/ML SQ SCH ×2 (08:27→16:57)
[2020-08-06] MEDS: Insulin DETEMIR 100 UNIT/ML X5UNITS SQ SCH ×2 (08:27→21:12)
[2020-08-06] MEDS: Nystatin POWDER 30 GM BOTTLE TP SCH ×2 (08:27→21:13)
[2020-08-06] MEDS ORDERED: *HR* Warfarin 3 MG TABLET PO ONE (18:00)
[2020-08-06] MEDS: Melatonin 3 MG TABLET PO PRN (21:11)
[2020-08-07 03:04] LABS: INR 2.1
[2020-08-07 03:09] LABS: Calcium 9.4 mg/dL (8.6-10.3); Magnesium 2.2 mg/dL (1.6-2.6); Phosphorous 5.1 mg/dL (2.7-4.5); Potassium 3.6 mEq/L (3.5-5.1)
[2020-08-07] MEDS: Ipratropium/Albuterol Neb 3 ML IH SCH ×6 (03:37→23:51)
[2020-08-07] MEDS: Insulin LISPRO 300 UNITS/3 ML VIAL SQ SCH ×4 (07:54→21:21)
[2020-08-07] MEDS ORDERED: Furosemide 40 MG TABLET PO SCH (09:00)
[2020-08-07] MEDS: Metoprolol XL (24 HR) Succ 50 MG TAB.ER.24H PO SCH (09:16)
[2020-08-07] MEDS: levETIRAcetam 250 MG TABLET PO SCH ×2 (09:16→21:15)
[2020-08-07] MEDS: Spironolactone 25 MG TABLET PO SCH (09:16)
[2020-08-07] MEDS: predniSONE 20 MG TABLET PO SCH (09:17)
[2020-08-07] MEDS: Gabapentin 300 MG CAPSULE PO SCH ×3 (09:17→21:15)
[2020-08-07] MEDS: *HR* Insulin Regular U-500 500 UNIT/ML SQ SCH ×2 (09:17→16:47)
[2020-08-07] MEDS: *HR* Amiodarone 200 MG TABLET PO SCH (09:17)
[2020-08-07] MEDS: Insulin DETEMIR 100 UNIT/ML X5UNITS SQ SCH ×2 (09:18→21:16)
[2020-08-07] MEDS: *HR* OxyCODONE Immed Rel 5 MG TABLET PO PRN ×4 (09:21→23:34)
[2020-08-07] MEDS: Nystatin POWDER 30 GM BOTTLE TP SCH ×2 (17:10→21:22)
[2020-08-07] MEDS ORDERED: *HR* Warfarin 3 MG TABLET PO ONE (18:00)
[2020-08-07] MEDS: Melatonin 3 MG TABLET PO PRN (21:19)
[2020-08-08] MEDS: Furosemide 40 MG TABLET PO SCH (00:21)
[2020-08-08 02:00] LABS: Prothrombin Time 22.7 Seconds (9.4-12.1)
[2020-08-08 02:09] LABS: Calcium 9.3 mg/dL (8.6-10.3); Magnesium 2.4 mg/dL (1.6-2.6); Phosphorous 4.4 mg/dL (2.7-4.5)
[2020-08-08] MEDS: Ipratropium/Albuterol Neb 3 ML IH SCH ×3 (03:55→11:26)
[2020-08-08] MEDS: Gabapentin 300 MG CAPSULE PO SCH ×3 (08:15→20:33)
[2020-08-08] MEDS: levETIRAcetam 250 MG TABLET PO SCH ×2 (08:15→20:34)
[2020-08-08] MEDS: *HR* Amiodarone 200 MG TABLET PO SCH (08:15)
[2020-08-08] MEDS: Metoprolol XL (24 HR) Succ 50 MG TAB.ER.24H PO SCH (08:15)
[2020-08-08] MEDS: Spironolactone 25 MG TABLET PO SCH (08:16)
[2020-08-08] MEDS: Insulin LISPRO 300 UNITS/3 ML VIAL SQ SCH ×4 (08:21→17:12)
[2020-08-08] MEDS: *HR* Insulin Regular U-500 500 UNIT/ML SQ SCH ×2 (08:22→17:13)
[2020-08-08] MEDS: *HR* OxyCODONE Immed Rel 5 MG TABLET PO PRN ×3 (10:26→20:34)
[2020-08-08] MEDS: Insulin DETEMIR 100 UNIT/ML X5UNITS SQ SCH (10:33)
[2020-08-08] MEDS ORDERED: Ipratropium/Albuterol Neb 3 ML IH PRN (12:23)
[2020-08-08] MEDS: Nystatin POWDER 30 GM BOTTLE TP SCH ×2 (12:31→20:34)
[2020-08-08] MEDS ORDERED: *HR* Warfarin 2 MG TABLET PO ONE (18:00)
[2020-08-09] MEDS: *HR* OxyCODONE Immed Rel 5 MG TABLET PO PRN ×4 (02:08→20:23)
[2020-08-09] MEDS: Gabapentin 300 MG CAPSULE PO SCH ×3 (08:38→20:23)
[2020-08-09] MEDS: Spironolactone 25 MG TABLET PO SCH (08:38)
[2020-08-09] MEDS: Metoprolol XL (24 HR) Succ 50 MG TAB.ER.24H PO SCH (08:38)
[2020-08-09] MEDS: levETIRAcetam 250 MG TABLET PO SCH ×2 (08:38→20:23)
[2020-08-09] MEDS: *HR* Amiodarone 200 MG TABLET PO SCH (08:38)
[2020-08-09] MEDS: Insulin LISPRO 300 UNITS/3 ML VIAL SQ SCH ×6 (08:39→17:34)
[2020-08-09] MEDS: *HR* Insulin Regular U-500 500 UNIT/ML SQ SCH ×2 (08:40→17:34)
[2020-08-09] MEDS: Nystatin POWDER 30 GM BOTTLE TP SCH ×2 (08:49→22:42)
[2020-08-09 14:36] LABS: Hematocrit 46.9 % (35.3-44.9); Hemoglobin 13.6 g/dL (11.5-15.4); Mean Corpuscular Hemoglobin 24.5 pg (28.0-33.3); Mean Corpuscular Volume 84.4 fL (83.0-100.0); Mean Platelet Volume 12.2 fL (9.4-12.4); Platelet Count 235 K/mcL (140-400); Red Blood Count 5.56 M/mcL (3.82-4.97); Red Cell Distribution Width 16.6 % (11.5-14.5); White Blood Count 9.5 K/mcL (4.3-11.1)
[2020-08-09 14:41] LABS: INR 2.3; Prothrombin Time 26.1 Seconds (9.4-12.1)
[2020-08-09 14:56] LABS: Calcium 9.1 mg/dL (8.6-10.3); Magnesium 2.2 mg/dL (1.6-2.6); Potassium 4.4 mEq/L (3.5-5.1)
[2020-08-09] MEDS: *HR* Warfarin 3 MG TABLET PO ONE ×2 (17:45→17:54)
[2020-08-09] MEDS ORDERED: *HR* Warfarin 3 MG TABLET PO ONE (18:00)
[2020-08-09] MEDS ORDERED: Insulin LISPRO 300 UNITS/3 ML VIAL SQ SCH (21:00)
[2020-08-10 03:54] LABS: BUN/Creatinine Ratio 39 (6-26); Blood Urea Nitrogen 44 mg/dL (6-20); Calcium 9.1 mg/dL (8.6-10.3); Carbon Dioxide 29 mEq/L (23-29); Chloride 100 mEq/L (98-107); Glucose 132 mg/dL (70-105); Osmolality,Calculated 295 (280-300); Potassium 4.1 mEq/L (3.5-5.1); Sodium 136 mEq/L (136-145); eGFR For African Americans > 60 (> 60); eGFR For Non-African Americans 50 (> 60)
[2020-08-10] MEDS: Insulin LISPRO 300 UNITS/3 ML VIAL SQ SCH ×4 (08:58→15:05)
[2020-08-10] MEDS: Metoprolol XL (24 HR) Succ 50 MG TAB.ER.24H PO SCH (09:00)
[2020-08-10] MEDS: levETIRAcetam 250 MG TABLET PO SCH (09:00)
[2020-08-10] MEDS: Gabapentin 300 MG CAPSULE PO SCH ×2 (09:00→15:11)
[2020-08-10] MEDS: Spironolactone 25 MG TABLET PO SCH (09:00)
[2020-08-10] MEDS: *HR* Amiodarone 200 MG TABLET PO SCH (09:01)
[2020-08-10] MEDS: Nystatin POWDER 30 GM BOTTLE TP SCH (09:01)
[2020-08-10] MEDS: *HR* OxyCODONE Immed Rel 5 MG TABLET PO PRN (09:07)
[2020-08-10] MEDS: *HR* Insulin Regular U-500 500 UNIT/ML SQ SCH (09:08)
[2020-08-10 15:21] VITALS: BP 142/71
[2020-08-10] MEDS ORDERED: *HR* Warfarin 2 MG TABLET PO ONE (18:00)
== END 2020-08-10 17:24 | disposition other institution (70) | DRG 193 ==
LOC: CDU → SUATTDRO 18:27 → 3BNU 20:57 → SUATTDRO 08-02 16:19
PROVIDERS: ADMIT Internal Medicine; ATTEND Internal Medicine

== ENCOUNTER 2021-01-11 00:27 | Observation (INO) ==
[2021-01-11] MEDS ORDERED: Ondansetron 4 MG/2 ML VIAL IVP PRN (03:47)
[2021-01-11] MEDS ORDERED: Naloxone 0.4 MG/ML INJ IVP PRN (03:47)
[2021-01-11] MEDS ORDERED: D5% in Water 1,000 ML IVC PRN (03:52)
[2021-01-11] MEDS ORDERED: *HR* Dextrose 50 % in Water (Vial) 50 ML VIAL IVP PRN (03:52)
[2021-01-11] MEDS ORDERED: Dextrose Gel 15 GM/37.5 ML TUBE PO PRN ×2 (03:52)
[2021-01-11] MEDS ORDERED: 0.9 % Sodium Chloride 1,000 ML IVC SCH (04:00)
[2021-01-11] MEDS: Nystatin POWDER 30 GM BOTTLE TP SCH ×3 (04:17→19:37)
[2021-01-11 05:29] LABS: Bacteria,Urine Few per hpf (None-Few); Bilirubin,Urine Negative (Negative); Blood,Urine Small (Negative); Clarity,Urine Turbid (Clear); Color,Urine Yellow (Yellow); Glucose,Urine (UA) Normal (Normal); Hyaline Casts,Urine Few per lpf (None Seen); Ketones,Urine Negative (Negative); Leukocyte Esterase,Urine Large (Negative); Nitrite,Urine Negative (Negative); Protein,Urine 100 mg/dL (Neg-Trace); RBC,Urine 15-30 per hpf (0-3); Specific Gravity,Urine 1.014 (1.010-1.025); Squamous Epithelial Cell,Urine Moderate per hpf (None-Few); Transitional Epi Cells,Urine Few per hpf (None-Few); Urobilinogen,Urine Normal (Normal); WBC,Urine TNTC per hpf (0-3)
[2021-01-11 05:30] LABS: Basophils # 0.1 K/mcL (0.0-0.2); Basophils % 0.9 %; Eosinophils # 0.2 K/mcL (0.0-0.6); Eosinophils % 1.8 %; Hematocrit 44.9 % (35.3-44.9); Hemoglobin 13.4 g/dL (11.5-15.4); Immature Granulocytes % 0.9 % (0-4); Lymphocytes # 2.9 K/mcL (0.6-4.6); Lymphocytes % 23.8 %; Mean Corpuscular HGB Conc 29.8 g/dL (31.6-35.5); Mean Corpuscular Hemoglobin 24.1 pg (28.0-33.3); Mean Corpuscular Volume 80.8 fL (83.0-100.0); Neutrophils # 7.8 K/mcL (1.6-8.9); Platelet Count 345 K/mcL (140-400); Red Blood Count 5.56 M/mcL (3.82-4.97); Red Cell Distribution Width 17.9 % (11.5-14.5); Segmented Neutrophils % 64.6 %; White Blood Count 12.1 K/mcL (4.3-11.1)
[2021-01-11 05:33] LABS: INR 3.1; Prothrombin Time 35.2 Seconds (9.4-12.1)
[2021-01-11 05:40] LABS: Alanine Aminotransferase 13 Units/L (7-52); Albumin 3.7 g/dL (3.5-5.7); Albumin/Globulin Ratio 0.8 (1.1-2.2); Alkaline Phosphatase 241 Units/L (34-104); Aspartate Amino Transferase 32 Units/L (13-39); BUN/Creatinine Ratio 17 (6-26); Bilirubin,Total 0.4 mg/dL (0.3-1.0); Blood Urea Nitrogen 18 mg/dL (6-20); Calcium 9.9 mg/dL (8.6-10.3); Carbon Dioxide 31 mEq/L (23-29); Chloride 93 mEq/L (98-107); Globulin 4.5 g/dL (2.4-3.5); Glucose 100 mg/dL (70-105); Osmolality,Calculated 282 (280-300); Phosphorous 4.2 mg/dL (2.7-4.5); Potassium 3.5 mEq/L (3.5-5.1); Sodium 135 mEq/L (136-145); Total Protein 8.2 g/dL (6.4-8.9); eGFR For African Americans > 60 (> 60); eGFR For Non-African Americans 53 (> 60)
[2021-01-11] MEDS ORDERED: Insulin LISPRO 300 UNITS/3 ML VIAL SUBQ SCH ×2 (06:00→07:30)
[2021-01-11] MEDS ORDERED: levoFLOXacin 750 MG/150 ML 750 MG/150 ML BAG IVPB SCH (09:00)
[2021-01-11] MEDS: Metoprolol XL (24 HR) Succ 50 MG TAB.ER.24H PO SCH (09:55)
[2021-01-11] MEDS: cefTRIAXone 1,000 MG in 0.9 % Sodium Chloride Mini Bag 100 ML IVPB SCH (09:56)
[2021-01-11] MEDS: Insulin LISPRO 300 UNITS/3 ML VIAL SUBQ SCH ×4 (09:57→21:13)
[2021-01-11] MEDS ORDERED: *HR* OxyCODONE Immed Rel 5 MG TABLET PO ONE (11:37)
[2021-01-11] MEDS: Ondansetron 4 MG/2 ML VIAL IVP PRN ×2 (11:57→19:33)
[2021-01-11] MEDS ORDERED: *HR* Warfarin 1 MG TABLET PO ONE (18:00)
[2021-01-11] MEDS ORDERED: Warfarin perPT PO PRN (18:00)
[2021-01-11] MEDS: *HR* OxyCODONE Immed Rel 5 MG TABLET PO PRN (19:33)
[2021-01-12] MEDS: Ondansetron 4 MG/2 ML VIAL IVP PRN ×4 (01:33→20:24)
[2021-01-12] MEDS: *HR* OxyCODONE Immed Rel 5 MG TABLET PO PRN ×3 (03:33→22:03)
[2021-01-12 06:10] LABS: INR 3.1; Prothrombin Time 35.1 Seconds (9.4-12.1)
[2021-01-12 06:13] LABS: Basophils # 0.1 K/mcL (0.0-0.2); Basophils % 1.5 %; Eosinophils # 0.2 K/mcL (0.0-0.6); Hematocrit 40.6 % (35.3-44.9); Immature Granulocytes % 0.7 % (0-4); Lymphocytes # 1.7 K/mcL (0.6-4.6); Lymphocytes % 20.8 %; Mean Corpuscular HGB Conc 29.6 g/dL (31.6-35.5); Mean Corpuscular Hemoglobin 23.8 pg (28.0-33.3); Mean Corpuscular Volume 80.6 fL (83.0-100.0); Mean Platelet Volume 10.1 fL (9.4-12.4); Monocytes # 0.5 K/mcL (0.0-1.3); Monocytes % 5.9 %; Neutrophils # 5.5 K/mcL (1.6-8.9); Platelet Count 324 K/mcL (140-400); Red Blood Count 5.04 M/mcL (3.82-4.97); Red Cell Distribution Width 17.2 % (11.5-14.5); Segmented Neutrophils % 68.1 %; White Blood Count 8.1 K/mcL (4.3-11.1)
[2021-01-12 06:29] LABS: BUN/Creatinine Ratio 13 (6-26); Blood Urea Nitrogen 15 mg/dL (6-20); Calcium 9.3 mg/dL (8.6-10.3); Carbon Dioxide 29 mEq/L (23-29); Chloride 94 mEq/L (98-107); Glucose 263 mg/dL (70-105); Magnesium 1.9 mg/dL (1.6-2.6); Osmolality,Calculated 284 (280-300); Potassium 3.9 mEq/L (3.5-5.1); Sodium 132 mEq/L (136-145); eGFR For African Americans > 60 (> 60); eGFR For Non-African Americans 50 (> 60)
[2021-01-12] MEDS: levETIRAcetam 250 MG TABLET PO SCH ×2 (07:50→20:23)
[2021-01-12] MEDS: cefTRIAXone 1,000 MG in 0.9 % Sodium Chloride Mini Bag 100 ML IVPB SCH (07:51)
[2021-01-12] MEDS: Gabapentin 300 MG CAPSULE PO SCH ×3 (07:51→20:21)
[2021-01-12] MEDS: Zonisamide 100 MG CAPSULE PO SCH (07:51)
[2021-01-12] MEDS: Metoprolol XL (24 HR) Succ 50 MG TAB.ER.24H PO SCH (07:51)
[2021-01-12] MEDS: Nystatin POWDER 30 GM BOTTLE TP SCH ×2 (07:53→20:32)
[2021-01-12] MEDS: Insulin LISPRO 300 UNITS/3 ML VIAL SUBQ SCH ×6 (08:10→20:26)
[2021-01-12] MEDS ORDERED: Lactulose Oral Soln 20 GM/30 ML UDC PO PRN (08:40)
[2021-01-12] MEDS: *HR* Amiodarone 200 MG TABLET PO SCH (10:16)
[2021-01-12] MEDS: Furosemide 40 MG TABLET PO SCH (10:16)
[2021-01-12] MEDS: Spironolactone 25 MG TABLET PO SCH (10:16)
[2021-01-12] MEDS ORDERED: Dextrose Gel 15 GM/37.5 ML TUBE PO PRN ×2 (11:30)
[2021-01-12] MEDS ORDERED: D5% in Water 1,000 ML IVC PRN (11:30)
[2021-01-12] MEDS ORDERED: *HR* Dextrose 50 % in Water (Vial) 50 ML VIAL IVP PRN (11:30)
[2021-01-12] MEDS ORDERED: *HR* Warfarin 1 MG TABLET PO ONE (18:00)
[2021-01-12] MEDS ORDERED: Melatonin 3 MG TABLET PO PRN (21:00)
[2021-01-13] MEDS: Insulin LISPRO 300 UNITS/3 ML VIAL SUBQ SCH ×9 (00:14→22:58)
[2021-01-13 06:06] LABS: INR 2.6; Prothrombin Time 29.3 Seconds (9.4-12.1)
[2021-01-13] MEDS: Furosemide 40 MG TABLET PO SCH (08:09)
[2021-01-13] MEDS: Metoprolol XL (24 HR) Succ 50 MG TAB.ER.24H PO SCH (08:10)
[2021-01-13] MEDS: levETIRAcetam 250 MG TABLET PO SCH ×2 (08:10→21:13)
[2021-01-13] MEDS: Spironolactone 25 MG TABLET PO SCH (08:11)
[2021-01-13] MEDS: Zonisamide 100 MG CAPSULE PO SCH (08:11)
[2021-01-13] MEDS: Nystatin POWDER 30 GM BOTTLE TP SCH ×2 (08:11→21:15)
[2021-01-13] MEDS: Gabapentin 300 MG CAPSULE PO SCH ×3 (08:11→21:14)
[2021-01-13] MEDS: *HR* Amiodarone 200 MG TABLET PO SCH (08:11)
[2021-01-13] MEDS: *HR* OxyCODONE Immed Rel 5 MG TABLET PO PRN ×2 (11:35→22:23)
[2021-01-13] MEDS ORDERED: *HR* Warfarin 3 MG TABLET PO ONE (18:00)
[2021-01-13] MEDS ORDERED: Insulin DETEMIR 100 UNIT/ML X5UNITS SUBQ SCH (21:00)
[2021-01-14 05:47] LABS: INR 2.1; Prothrombin Time 23.3 Seconds (9.4-12.1)
[2021-01-14] MEDS: Gabapentin 300 MG CAPSULE PO SCH ×2 (08:25→14:04)
[2021-01-14] MEDS: levETIRAcetam 250 MG TABLET PO SCH (08:25)
[2021-01-14] MEDS: Zonisamide 100 MG CAPSULE PO SCH (08:26)
[2021-01-14] MEDS: *HR* Amiodarone 200 MG TABLET PO SCH (08:26)
[2021-01-14] MEDS: *HR* OxyCODONE Immed Rel 5 MG TABLET PO PRN ×2 (08:26→19:30)
[2021-01-14] MEDS: Spironolactone 25 MG TABLET PO SCH (08:26)
[2021-01-14] MEDS: Metoprolol XL (24 HR) Succ 50 MG TAB.ER.24H PO SCH (08:26)
[2021-01-14] MEDS: Furosemide 40 MG TABLET PO SCH (08:27)
[2021-01-14] MEDS: Insulin LISPRO 300 UNITS/3 ML VIAL SUBQ SCH ×6 (08:32→17:17)
[2021-01-14] MEDS: Nystatin POWDER 30 GM BOTTLE TP SCH (08:35)
[2021-01-14 15:22] VITALS: BP 135/69
[2021-01-14] MEDS ORDERED: *HR* Warfarin 3 MG TABLET PO ONE (18:00)
== END 2021-01-14 20:46 | disposition home health service (06) ==
LOC: 3BNU → SUATTDRO 02:06
PROVIDERS: ADMIT Student in an Organized Health Care Education/Training Program; ATTEND Internal Medicine

== ENCOUNTER 2021-07-03 19:38 | Observation (INO) ==
[2021-07-03 22:00] LABS: Basophils % 0.5 %; Eosinophils # 0.1 K/mcL (0.0-0.6); Eosinophils % 1.4 %; Hematocrit 43.1 % (35.3-44.9); Hemoglobin 12.7 g/dL (11.5-15.4); Immature Granulocytes % 0.6 % (0-4); Lymphocytes # 1.6 K/mcL (0.6-4.6); Mean Corpuscular HGB Conc 29.5 g/dL (31.6-35.5); Mean Corpuscular Hemoglobin 21.5 pg (28.0-33.3); Mean Corpuscular Volume 72.9 fL (83.0-100.0); Mean Platelet Volume 10.2 fL (9.4-12.4); Monocytes # 0.4 K/mcL (0.0-1.3); Monocytes % 4.8 %; Neutrophils # 5.9 K/mcL (1.6-8.9); Platelet Count 267 K/mcL (140-400); Red Blood Count 5.91 M/mcL (3.82-4.97); Red Cell Distribution Width 19.4 % (11.5-14.5); Segmented Neutrophils % 72.7 %; White Blood Count 8.1 K/mcL (4.3-11.1)
[2021-07-03 22:21] LABS: Alanine Aminotransferase 7 Units/L (7-52); Albumin 3.9 g/dL (3.5-5.7); Alkaline Phosphatase 117 Units/L (34-104); Aspartate Amino Transferase 13 Units/L (13-39); BUN/Creatinine Ratio 13 (6-26); Bilirubin,Direct 0.1 mg/dL (0.0-0.2); Bilirubin,Indirect 0.4 mg/dL (0.0-1.0); Bilirubin,Total 0.5 mg/dL (0.3-1.0); Blood Urea Nitrogen 14 mg/dL (6-20); Calcium 9.7 mg/dL (8.6-10.3); Carbon Dioxide 31 mEq/L (23-29); Chloride 97 mEq/L (98-107); Globulin 4.1 g/dL (2.4-3.5); Glucose 311 mg/dL (70-105); Osmolality,Calculated 298 (280-300); Potassium 3.4 mEq/L (3.5-5.1); Sodium 138 mEq/L (136-145); Troponin I < 0.03 ng/mL (< 0.04); eGFR For African Americans > 60 (> 60); eGFR For Non-African Americans 51 (> 60)
[2021-07-03] MEDS ORDERED: Isovue-370 500 ML BOTTLE IVP ONE (22:23)
[2021-07-03] MEDS ORDERED: 0.9 % Sodium Chloride 1,000 ML IVC STA (22:43)
[2021-07-03 23:06] LABS: Bilirubin,Urine Negative (Negative); Blood,Urine Large (Negative); Clarity,Urine Turbid (Clear); Color,Urine Yellow (Yellow); Glucose,Urine (UA) 200 mg/dL (Normal); Ketones,Urine Trace mg/dL (Negative); Leukocyte Esterase,Urine Large (Negative); Mucus,Urine Few per lpf (None-Few); Nitrite,Urine Negative (Negative); Protein,Urine 50 mg/dL (Neg-Trace); RBC,Urine TNTC per hpf (0-3); Specific Gravity,Urine 1.019 (1.010-1.025); Squamous Epithelial Cell,Urine Few per hpf (None-Few); Urobilinogen,Urine Normal (Normal); WBC,Urine TNTC per hpf (0-3)
[2021-07-03] MEDS ORDERED: levoFLOXacin 750 MG/150 ML 750 MG/150 ML BAG IVPB ONE (23:08)
[2021-07-03 23:10] LABS: Amphetamine Screen,Urine Negative ng/mL (Cutoff=1000); Barbiturate Screen,Urine Negative ng/mL (Cutoff=200); Benzodiazepines Screen,Urine Negative ng/mL (Cutoff=200); Cannabinoid Screen,Urine Negative ng/mL (Cutoff = 50); Cocaine Screen,Urine Negative ng/mL (Cutoff= 300); Opiate Screen,Urine Negative ng/mL (Cutoff=300); Phencyclidine Screen,Urine Negative ng/mL (Cutoff=25)
[2021-07-03] MEDS ORDERED: cefTRIAXone 1,000 MG in Water for inj. (sterile) 10 ML IVP ONE (23:19)
[2021-07-03] MEDS ORDERED: Ondansetron 4 MG/2 ML VIAL IVP ONE (23:27)
[2021-07-04] MEDS ORDERED: Naloxone 0.4 MG/ML INJ IVP PRN (00:32)
[2021-07-04] MEDS ORDERED: Acetaminophen 325 MG TABLET PO PRN (00:37)
[2021-07-04] MEDS ORDERED: Perflutren Lipid Microsphere 1.3 ML in 0.9 % Sodium Chloride 8.7 ML IVP PRN (00:44)
[2021-07-04] MEDS ORDERED: Dextrose Gel 15 GM/37.5 ML TUBE PO PRN ×2 (00:57)
[2021-07-04] MEDS ORDERED: *HR* Dextrose 50 % in Water (Vial) 50 ML VIAL IVP PRN (00:57)
[2021-07-04] MEDS ORDERED: D5% in Water 1,000 ML IVC PRN (00:57)
[2021-07-04] MEDS: Ondansetron 4 MG/2 ML VIAL IVP PRN (03:16)
[2021-07-04] MEDS ORDERED: Melatonin 3 MG TABLET PO ONE (05:24)
[2021-07-04] MEDS: Insulin LISPRO 300 UNITS/3 ML VIAL SUBQ SCH ×3 (05:46→18:07)
[2021-07-04 06:48] LABS: Hematocrit 41.7 % (35.3-44.9); Hemoglobin 12.1 g/dL (11.5-15.4); Mean Corpuscular Volume 72.4 fL (83.0-100.0); Mean Platelet Volume 10.6 fL (9.4-12.4); Platelet Count 268 K/mcL (140-400); Red Blood Count 5.76 M/mcL (3.82-4.97); Red Cell Distribution Width 19.4 % (11.5-14.5); White Blood Count 9.6 K/mcL (4.3-11.1)
[2021-07-04 06:56] LABS: INR 1.4; Prothrombin Time 16.5 Seconds (9.4-12.1)
[2021-07-04 06:59] LABS: Activated Partial Thrombo Time 31.4 Seconds (26.0-36.0)
[2021-07-04 07:12] LABS: Alanine Aminotransferase 4 Units/L (7-52); Albumin 3.7 g/dL (3.5-5.7); Alkaline Phosphatase 106 Units/L (34-104); Aspartate Amino Transferase 11 Units/L (13-39); BUN/Creatinine Ratio 13 (6-26); Bilirubin,Total 0.4 mg/dL (0.3-1.0); Blood Urea Nitrogen 13 mg/dL (6-20); Calcium 9.2 mg/dL (8.6-10.3); Carbon Dioxide 28 mEq/L (23-29); Chloride 100 mEq/L (98-107); Chol/HDL Ratio 5.8 (0-4.9); Cholesterol 163 mg/dL (< 200); Globulin 3.7 g/dL (2.4-3.5); Glucose 323 mg/dL (70-105); HDL Cholesterol 28 mg/dL (40-59); LDL Cholesterol,Calculated 91 mg/dL (< 100); Magnesium 1.7 mg/dL (1.6-2.6); Osmolality,Calculated 299 (280-300); Sodium 138 mEq/L (136-145); Total Protein 7.4 g/dL (6.4-8.9); Triglycerides 219 mg/dL (< 150); Troponin I < 0.03 ng/mL (< 0.04); eGFR For African Americans > 60 (> 60); eGFR For Non-African Americans 58 (> 60)
[2021-07-04 08:26] LABS: Estimated Average Glucose 203 mg/dl; Hemoglobin A1C 8.7 %
[2021-07-04 11:59] LABS: Adenovirus F 40/41 PCR Not detected (Not detect); Astrovirus PCR Not detected (Not detect); C.difficile Toxin A/B Gene PCR Not detected (Not detect); Campylobacter by PCR Not detected (Not detect); Cryptosporidium by PCR Not detected (Not detect); Cyclospora cayetanensis PCR Not detected (Not detect); E. coli O157 by PCR Not detected (Not detect); Entamoeba histolytica PCR Not detected (Not detect); Enteroaggregative E.coli(EAEC) Not detected (Not detect); Enteropathogenic E.coli(EPEC) Not detected (Not detect); Enterotoxigenic E.coli (ETEC) Not detected (Not detect); Giardia lamblia PCR Not detected (Not detect); Norovirus GI/GII PCR Not detected (Not detect); Plesiomonas shigelloides PCR Not detected (Not detect); Rotavirus A PCR Not detected (Not detect); Salmonella PCR Not detected (Not detect); Sapovirus PCR Not detected (Not detect); Shig/EnteroinvasiveE coli EIEC Not detected (Not detect); Shigalike tox-prod E coli STEC Not detected (Not detect); Vibrio PCR Not detected (Not detect); Vibrio cholerae PCR Not detected (Not detect); Yersinia enterocolitica PCR Not detected (Not detect)
[2021-07-04] MEDS: Nystatin POWDER 30 GM BOTTLE TP SCH ×2 (14:31→21:16)
[2021-07-04] MEDS ORDERED: Warfarin perPT PO PRN (18:00)
[2021-07-04] MEDS ORDERED: cefTRIAXone 1,000 MG in 0.9 % Sodium Chloride Mini Bag 100 ML IVPB SCH (22:00)
[2021-07-05] MEDS: Ondansetron 4 MG/2 ML VIAL IVP PRN (00:25)
[2021-07-05] MEDS: Insulin LISPRO 300 UNITS/3 ML VIAL SUBQ SCH ×3 (01:01→12:58)
[2021-07-05] MEDS ORDERED: Melatonin 3 MG TABLET PO ONE (04:01)
[2021-07-05 06:56] LABS: Hematocrit 42.6 % (35.3-44.9); Hemoglobin 12.5 g/dL (11.5-15.4); Mean Corpuscular HGB Conc 29.3 g/dL (31.6-35.5); Mean Corpuscular Hemoglobin 21.1 pg (28.0-33.3); Mean Platelet Volume 11.1 fL (9.4-12.4); Platelet Count 295 K/mcL (140-400); Red Blood Count 5.92 M/mcL (3.82-4.97); Red Cell Distribution Width 19.5 % (11.5-14.5); White Blood Count 8.2 K/mcL (4.3-11.1)
[2021-07-05 08:12] LABS: BUN/Creatinine Ratio 10 (6-26); Blood Urea Nitrogen 9 mg/dL (6-20); Calcium 9.7 mg/dL (8.6-10.3); Carbon Dioxide 26 mEq/L (23-29); Chloride 102 mEq/L (98-107); Glucose 219 mg/dL (70-105); Osmolality,Calculated 287 (280-300); Potassium 3.1 mEq/L (3.5-5.1); Sodium 136 mEq/L (136-145); eGFR For African Americans > 60 (> 60); eGFR For Non-African Americans > 60 (> 60)
[2021-07-05] MEDS ORDERED: Potassium Chloride 40 MEQ, Lidocaine 1% 2 ML in 0.9 % Sodium Chloride 500 ML IVPB ONE (08:55)
[2021-07-05] MEDS ORDERED: *HR* Amiodarone 200 MG TABLET PO SCH (09:00)
[2021-07-05] MEDS ORDERED: NON-FORMULARY MEDICATION 1 EACH EACH (Metoprolol Succinate [Toprol Xl] 100 MG Tab.Er.24h) PO SCH (09:00)
[2021-07-05] MEDS ORDERED: Spironolactone 25 MG TABLET PO SCH (09:00)
[2021-07-05] MEDS ORDERED: Furosemide 40 MG TABLET PO SCH (09:00)
[2021-07-05] MEDS ORDERED: Metoprolol XL (24 HR) Succ 50 MG TAB.ER.24H PO SCH (09:00)
[2021-07-05] MEDS ORDERED: levETIRAcetam 250 MG TABLET PO SCH ×2 (10:00→21:00)
[2021-07-05] MEDS ORDERED: Zonisamide 100 MG CAPSULE PO SCH (10:00)
[2021-07-05] MEDS: Gabapentin 300 MG CAPSULE PO SCH ×2 (10:51→16:08)
[2021-07-05] MEDS: Nystatin POWDER 30 GM BOTTLE TP SCH (12:58)
[2021-07-05] MEDS ORDERED: Apixaban 5 MG TABLET PO SCH (13:30)
[2021-07-05 15:08] VITALS: BP 123/73; PULSE 78; TEMP 98.1; O2SAT 96
[2021-07-05] MEDS ORDERED: Insulin LISPRO 300 UNITS/3 ML VIAL SUBQ SCH (21:00)
== END 2021-07-05 17:04 | disposition home health service (06) ==
LOC: 3ANU 19:38 → EMEROOARM 19:38 → SUATTDRO 23:50 → 3ANU 07-04 01:35
PROVIDERS: ADMIT Internal Medicine; ATTEND Internal Medicine

== ENCOUNTER 2021-08-04 10:20 | Inpatient (IN) ==
[2021-08-04] MEDS ORDERED: 0.9 % Sodium Chloride 1,000 ML ONE (10:33)
[2021-08-04] MEDS ORDERED: 0.9 % Sodium Chloride 1,000 ML IVC ONE ×3 (10:43→13:33)
[2021-08-04] MEDS ORDERED: cefTRIAXone 1,000 MG in Water for inj. (sterile) 10 ML IVP STA (11:21)
[2021-08-04 11:55] LABS: Basophils # 0.1 K/mcL (0.0-0.2); Basophils % 0.5 %; Eosinophils # 0.2 K/mcL (0.0-0.6); Eosinophils % 2.6 %; Hematocrit 34.6 % (35.3-44.9); Hemoglobin 10.3 g/dL (11.5-15.4); Immature Granulocytes % 0.6 % (0-4); Lymphocytes # 1.9 K/mcL (0.6-4.6); Lymphocytes % 20.1 %; Mean Corpuscular HGB Conc 29.8 g/dL (31.6-35.5); Mean Corpuscular Hemoglobin 22.6 pg (28.0-33.3); Mean Corpuscular Volume 75.9 fL (83.0-100.0); Mean Platelet Volume 10.6 fL (9.4-12.4); Monocytes # 0.4 K/mcL (0.0-1.3); Monocytes % 4.7 %; Neutrophils # 6.6 K/mcL (1.6-8.9); Platelet Count 214 K/mcL (140-400); Red Blood Count 4.56 M/mcL (3.82-4.97); Red Cell Distribution Width 20.9 % (11.5-14.5); Segmented Neutrophils % 71.5 %; White Blood Count 9.3 K/mcL (4.3-11.1)
[2021-08-04 12:08] LABS: Alanine Aminotransferase 5 Units/L (7-52); Albumin 3.4 g/dL (3.5-5.7); Albumin/Globulin Ratio 1.1 (1.1-2.2); Alkaline Phosphatase 86 Units/L (34-104); Aspartate Amino Transferase 10 Units/L (13-39); BUN/Creatinine Ratio 12 (6-26); Bilirubin,Total 0.3 mg/dL (0.3-1.0); Blood Urea Nitrogen 44 mg/dL (6-20); Calcium 8.6 mg/dL (8.6-10.3); Carbon Dioxide 29 mEq/L (23-29); Chloride 93 mEq/L (98-107); Creatine Kinase 49 Units/L (30-223); Glucose 82 mg/dL (70-105); Osmolality,Calculated 286 (280-300); Potassium 3.8 mEq/L (3.5-5.1); Sodium 133 mEq/L (136-145); Total Protein 6.4 g/dL (6.4-8.9); Troponin I < 0.03 ng/mL (< 0.04); eGFR For African Americans 16 (> 60); eGFR For Non-African Americans 13 (> 60)
[2021-08-04 12:21] LABS: Thyroid Stimulating Hormone 3.466 mcIU/mL (0.340-5.600)
[2021-08-04 12:28] LABS: Influenza A PCR Negative (Negative); Influenza B PCR Negative (Negative); Resp. Syncytial Virus PCR Negative (Negative)
[2021-08-04 12:38] LABS: SARS-CoV-2 by PCR (In House) Negative (Negative)
[2021-08-04 12:47] LABS: Bilirubin,Urine Negative (Negative); Blood,Urine Small (Negative); Clarity,Urine Ex.Turbid (Clear); Color,Urine Yellow (Yellow); Glucose,Urine (UA) Normal (Normal); Ketones,Urine Negative (Negative); Leukocyte Esterase,Urine Large (Negative); Nitrite,Urine Negative (Negative); Protein,Urine 30 mg/dL (Neg-Trace); Specific Gravity,Urine 1.015 (1.010-1.025); Urobilinogen,Urine Normal (Normal)
[2021-08-04 12:59] LABS: Squamous Epithelial Cell,Urine Present per hpf (None-Few); WBC,Urine TNTC per hpf (0-3)
[2021-08-04 13:00] LABS: Bacteria,Urine Present per hpf (None-Few); Budding Yeast,Urine Present per hpf (None Seen); Renal Epithelial Cells,Urine Present per hpf (None-Few); Transitional Epi Cells,Urine Present per hpf (None-Few)
[2021-08-04 13:01] LABS: RBC,Urine Present per hpf (0-3)
[2021-08-04] MEDS ORDERED: Cefepime HCl 1,000 MG in Water for inj. (sterile) 10 ML IVP STA (13:27)
[2021-08-04] MEDS ORDERED: Naloxone 0.4 MG/ML INJ IVP PRN (16:12)
[2021-08-04] MEDS ORDERED: Ondansetron 4 MG/2 ML VIAL IVP PRN (16:12)
[2021-08-04] MEDS ORDERED: Dextrose Gel 15 GM/37.5 ML TUBE PO PRN ×2 (16:14)
[2021-08-04] MEDS ORDERED: D5% in Water 1,000 ML IVC PRN (16:14)
[2021-08-04] MEDS ORDERED: *HR* Dextrose 50 % in Water (Vial) 50 ML VIAL IVP PRN (16:14)
[2021-08-04] MEDS: Insulin LISPRO 300 UNITS/3 ML VIAL SUBQ SCH ×2 (18:12→21:35)
[2021-08-04] MEDS: Nystatin POWDER 30 GM BOTTLE TP SCH ×2 (18:13→21:35)
[2021-08-04 19:58] LABS: ABG Base Excess 2 mEq/L (-2 to 3); ABG HCO3 32 mEq/L (21-27); ABG Oxygen Saturation 98 % (95-98); ABG PCO2 76 mmHg (35-45); ABG PH 7.23 pH Units (7.32-7.45); ABG PO2 118 mmHg (85-104); ABG TCO2 34 mEq/L (20-26)
[2021-08-04] MEDS: levETIRAcetam 250 MG TABLET PO SCH (21:30)
[2021-08-05 03:35] LABS: ABG Base Excess 4 mEq/L (-2 to 3); ABG HCO3 32 mEq/L (21-27); ABG Oxygen Saturation 95 % (95-98); ABG PCO2 66 mmHg (35-45); ABG PH 7.29 pH Units (7.32-7.45); ABG PO2 86 mmHg (85-104); ABG TCO2 34 mEq/L (20-26); Blood Gas Modality BiLevel; Blood Gas VT 525 cc
[2021-08-05 05:08] LABS: Basophils % 0.6 %; Eosinophils # 0.3 K/mcL (0.0-0.6); Eosinophils % 4.2 %; Hematocrit 35.4 % (35.3-44.9); Hemoglobin 10.6 g/dL (11.5-15.4); Immature Granulocytes % 0.5 % (0-4); Lymphocytes # 1.4 K/mcL (0.6-4.6); Lymphocytes % 21.7 %; Mean Corpuscular HGB Conc 29.9 g/dL (31.6-35.5); Mean Corpuscular Hemoglobin 23.2 pg (28.0-33.3); Mean Corpuscular Volume 77.5 fL (83.0-100.0); Mean Platelet Volume 10.6 fL (9.4-12.4); Monocytes # 0.4 K/mcL (0.0-1.3); Monocytes % 5.6 %; Neutrophils # 4.3 K/mcL (1.6-8.9); Platelet Count 203 K/mcL (140-400); Red Blood Count 4.57 M/mcL (3.82-4.97); Red Cell Distribution Width 21.2 % (11.5-14.5); Segmented Neutrophils % 67.4 %; White Blood Count 6.4 K/mcL (4.3-11.1)
[2021-08-05 05:27] LABS: Phosphorous 4.7 mg/dL (2.7-4.5); Potassium 4.2 mEq/L (3.5-5.1)
[2021-08-05 05:43] LABS: Calcium 8.1 mg/dL (8.6-10.3)
[2021-08-05] MEDS: Insulin LISPRO 300 UNITS/3 ML VIAL SUBQ SCH ×4 (08:04→22:00)
[2021-08-05] MEDS: Nystatin POWDER 30 GM BOTTLE TP SCH ×3 (08:05→21:59)
[2021-08-05] MEDS ORDERED: Fluconazole 40 MG/ML UDC PO SCH (09:00)
[2021-08-05] MEDS: *HR* OxyCODONE Immed Rel 5 MG TABLET PO PRN ×3 (12:17→22:01)
[2021-08-05] MEDS ORDERED: Cefepime HCl 1,000 MG in Water for inj. (sterile) 10 ML IVP SCH (13:00)
[2021-08-05] MEDS ORDERED: Cefepime HCl 500 MG in Water for inj. (sterile) 10 ML IVP SCH (13:00)
[2021-08-05] MEDS ORDERED: *HR* Dextrose 50 % in Water (Syg) 50 ML SYRINGE IVP PRN (15:00)
[2021-08-05] MEDS: levETIRAcetam 250 MG TABLET PO SCH (21:58)
[2021-08-05] MEDS: Apixaban 5 MG TABLET PO SCH (21:58)
[2021-08-05] MEDS: Gabapentin 300 MG CAPSULE PO SCH (21:58)
[2021-08-05] MEDS: *HR* Ticagrelor 90 MG TABLET PO SCH (21:59)
[2021-08-05] MEDS: Zonisamide 100 MG CAPSULE PO SCH (22:05)
[2021-08-06 07:12] LABS: Basophils % 0.6 %; Eosinophils # 0.2 K/mcL (0.0-0.6); Eosinophils % 4.6 %; Hematocrit 36.9 % (35.3-44.9); Hemoglobin 10.8 g/dL (11.5-15.4); Immature Granulocytes % 0.4 % (0-4); Immature Platelets 6.3 % (1.1-6.1); Lymphocytes # 2.1 K/mcL (0.6-4.6); Lymphocytes % 40.9 %; Mean Corpuscular HGB Conc 29.3 g/dL (31.6-35.5); Mean Corpuscular Hemoglobin 22.6 pg (28.0-33.3); Mean Corpuscular Volume 77.4 fL (83.0-100.0); Mean Platelet Volume 11.4 fL (9.4-12.4); Monocytes # 0.3 K/mcL (0.0-1.3); Monocytes % 6.1 %; Neutrophils # 2.5 K/mcL (1.6-8.9); Platelet Count 200 K/mcL (140-400); Red Blood Count 4.77 M/mcL (3.82-4.97); Red Cell Distribution Width 21.2 % (11.5-14.5); Segmented Neutrophils % 47.4 %; White Blood Count 5.2 K/mcL (4.3-11.1)
[2021-08-06 07:25] LABS: Calcium 8.9 mg/dL (8.6-10.3); Magnesium 1.8 mg/dL (1.6-2.6); Potassium 3.9 mEq/L (3.5-5.1)
[2021-08-06] MEDS ORDERED: Fluconazole 100 MG TABLET PO SCH ×2 (09:00)
[2021-08-06] MEDS: Apixaban 5 MG TABLET PO SCH ×2 (09:55→20:35)
[2021-08-06] MEDS: Gabapentin 300 MG CAPSULE PO SCH ×3 (09:55→20:35)
[2021-08-06] MEDS: Insulin LISPRO 300 UNITS/3 ML VIAL SUBQ SCH ×4 (09:55→20:37)
[2021-08-06] MEDS: Zonisamide 100 MG CAPSULE PO SCH ×2 (09:55→20:34)
[2021-08-06] MEDS: *HR* Ticagrelor 90 MG TABLET PO SCH ×2 (09:55→20:35)
[2021-08-06] MEDS: levETIRAcetam 250 MG TABLET PO SCH ×2 (09:55→20:35)
[2021-08-06] MEDS: Metoprolol XL (24 HR) Succ 50 MG TAB.ER.24H PO SCH (09:55)
[2021-08-06] MEDS: *HR* Amiodarone 200 MG TABLET PO SCH (09:55)
[2021-08-06] MEDS: *HR* OxyCODONE Immed Rel 5 MG TABLET PO PRN (10:48)
[2021-08-06] MEDS: Nystatin POWDER 30 GM BOTTLE TP SCH ×3 (10:52→20:35)
[2021-08-06 14:46] LABS: Acinetobacter baumannii by PCR Not Detected (Not Detect); Candida albicans by PCR Not Detected (Not Detect); Candida glabrata by PCR Not Detected (Not Detect); Candida krusei by PCR Not Detected (Not Detect); Candida parapsilosis by PCR Not Detected (Not Detect); Candida tropicalis by PCR Not Detected (Not Detect); Enterobacter cloacae Cmplx PCR Not Detected (Not Detect); Enterobacteriaceae by PCR Not Detected (Not Detect); Enterococcus by PCR Not Detected (Not Detect); Escherichia coli by PCR Not Detected (Not Detect); Klebsiella oxytoca by PCR Not Detected (Not Detect); Klebsiella pneumoniae by PCR Not Detected (Not Detect); Proteus by PCR Not Detected (Not Detect); Pseudomonas aeruginosa by PCR Not Detected (Not Detect); Serratia marcescens by PCR Not Detected (Not Detect); Staphylococcus aureus by PCR Not Detected (Not Detect); Staphylococcus by PCR DETECTED (Not Detect); Streptococcus agalactiae(B)PCR Not Detected (Not Detect); Streptococcus by PCR Not Detected (Not Detect); Streptococcus pneumoniae PCR Not Detected (Not Detect); Streptococcus pyogenes (A) PCR Not Detected (Not Detect); mecA Methicillin-Resist Gene Not Detected (Not Detect)
[2021-08-06] MEDS ORDERED: Vancomycin 1,750 MG in 0.9 % Sodium Chloride 250 ML IVPB ONE (14:54)
[2021-08-06] MEDS ORDERED: Vancomycin 1,500 MG/265 ML IV.SOLN IVPB SCH ×2 (16:00→21:00)
[2021-08-07] MEDS: *HR* OxyCODONE Immed Rel 5 MG TABLET PO PRN ×2 (03:50→21:42)
[2021-08-07 04:38] LABS: Basophils % 0.1 %; Eosinophils # 0.1 K/mcL (0.0-0.6); Eosinophils % 0.7 %; Hematocrit 43.2 % (35.3-44.9); Immature Granulocytes % 0.5 % (0-4); Lymphocytes # 0.3 K/mcL (0.6-4.6); Mean Corpuscular HGB Conc 29.6 g/dL (31.6-35.5); Mean Corpuscular Hemoglobin 22.9 pg (28.0-33.3); Mean Corpuscular Volume 77.1 fL (83.0-100.0); Mean Platelet Volume 10.6 fL (9.4-12.4); Monocytes # 0.3 K/mcL (0.0-1.3); Monocytes % 2.3 %; Platelet Count 207 K/mcL (140-400); Red Cell Distribution Width 21.7 % (11.5-14.5); Segmented Neutrophils % 93.4 %
[2021-08-07 04:41] LABS: Hemoglobin 12.8 g/dL (11.5-15.4); Neutrophils # 10.4 K/mcL (1.6-8.9); White Blood Count 11.1 K/mcL (4.3-11.1)
[2021-08-07 04:57] LABS: BUN/Creatinine Ratio 18 (6-26); Blood Urea Nitrogen 19 mg/dL (6-20); Carbon Dioxide 23 mEq/L (23-29); Chloride 99 mEq/L (98-107); Potassium 4.1 mEq/L (3.5-5.1); Sodium 135 mEq/L (136-145); eGFR For African Americans > 60 (> 60)
[2021-08-07 04:58] LABS: Calcium 9.6 mg/dL (8.6-10.3); Glucose 336 mg/dL (70-105); Osmolality,Calculated 295 (280-300); eGFR For Non-African Americans 53 (> 60)
[2021-08-07] MEDS ORDERED: Acetaminophen 325 MG TABLET PO STA (08:09)
[2021-08-07] MEDS ORDERED: 0.9 % Sodium Chloride 1,000 ML IVC ONE ×3 (08:16→17:49)
[2021-08-07] MEDS: Metoprolol XL (24 HR) Succ 50 MG TAB.ER.24H PO SCH (08:31)
[2021-08-07] MEDS: Zonisamide 100 MG CAPSULE PO SCH ×2 (08:32→21:42)
[2021-08-07] MEDS: levETIRAcetam 250 MG TABLET PO SCH ×2 (08:32→21:00)
[2021-08-07] MEDS: *HR* Amiodarone 200 MG TABLET PO SCH (08:32)
[2021-08-07] MEDS: Gabapentin 300 MG CAPSULE PO SCH ×3 (08:32→21:43)
[2021-08-07] MEDS: *HR* Ticagrelor 90 MG TABLET PO SCH ×2 (08:32→21:43)
[2021-08-07] MEDS: Apixaban 5 MG TABLET PO SCH ×2 (08:32→21:43)
[2021-08-07] MEDS: Insulin LISPRO 300 UNITS/3 ML VIAL SUBQ SCH ×4 (08:33→21:44)
[2021-08-07] MEDS: Cefepime HCl 2,000 MG in Water for inj. (sterile) 10 ML IVP SCH ×2 (09:22→21:43)
[2021-08-07] MEDS: Nystatin POWDER 30 GM BOTTLE TP SCH ×3 (09:23→21:00)
[2021-08-07] MEDS: Doxycycline 100 MG in 0.9 % Sodium Chloride Mini Bag 100 ML IVPB SCH (17:29)
[2021-08-08] MEDS: Doxycycline 100 MG in 0.9 % Sodium Chloride Mini Bag 100 ML IVPB SCH (05:34)
[2021-08-08 05:45] LABS: Basophils % 0.3 %; Red Cell Distribution Width 22.2 % (11.5-14.5)
[2021-08-08 05:47] LABS: Eosinophils # 0.8 K/mcL (0.0-0.6); Eosinophils % 8.2 %; Hematocrit 35.7 % (35.3-44.9); Hemoglobin 10.5 g/dL (11.5-15.4); Immature Granulocytes % 0.5 % (0-4); Immature Platelets 7.5 % (1.1-6.1); Lymphocytes # 1.7 K/mcL (0.6-4.6); Lymphocytes % 18.2 %; Mean Corpuscular HGB Conc 29.4 g/dL (31.6-35.5); Mean Corpuscular Volume 78.3 fL (83.0-100.0); Mean Platelet Volume 11.1 fL (9.4-12.4); Monocytes # 0.4 K/mcL (0.0-1.3); Monocytes % 4.5 %; Neutrophils # 6.3 K/mcL (1.6-8.9); Platelet Count 194 K/mcL (140-400); Red Blood Count 4.56 M/mcL (3.82-4.97); Segmented Neutrophils % 68.3 %; White Blood Count 9.2 K/mcL (4.3-11.1)
[2021-08-08 06:05] LABS: BUN/Creatinine Ratio 21 (6-26); Blood Urea Nitrogen 23 mg/dL (6-20); Carbon Dioxide 27 mEq/L (23-29); Chloride 103 mEq/L (98-107); Glucose 169 mg/dL (70-105); Osmolality,Calculated 290 (280-300); Potassium 3.9 mEq/L (3.5-5.1); Sodium 136 mEq/L (136-145); eGFR For African Americans > 60 (> 60); eGFR For Non-African Americans 51 (> 60)
[2021-08-08] MEDS: Zonisamide 100 MG CAPSULE PO SCH ×2 (08:08→20:33)
[2021-08-08] MEDS: levETIRAcetam 250 MG TABLET PO SCH ×2 (08:08→20:31)
[2021-08-08] MEDS: *HR* Ticagrelor 90 MG TABLET PO SCH ×2 (08:09→20:32)
[2021-08-08] MEDS: Apixaban 5 MG TABLET PO SCH ×2 (08:09→20:33)
[2021-08-08] MEDS: Cefepime HCl 2,000 MG in Water for inj. (sterile) 10 ML IVP SCH (08:09)
[2021-08-08] MEDS: *HR* OxyCODONE Immed Rel 5 MG TABLET PO PRN ×2 (08:09→20:04)
[2021-08-08] MEDS: Gabapentin 300 MG CAPSULE PO SCH ×3 (08:10→20:32)
[2021-08-08] MEDS: Metoprolol XL (24 HR) Succ 50 MG TAB.ER.24H PO SCH ×2 (08:20→10:15)
[2021-08-08] MEDS: Insulin LISPRO 300 UNITS/3 ML VIAL SUBQ SCH ×4 (08:20→20:33)
[2021-08-08] MEDS: *HR* Amiodarone 200 MG TABLET PO SCH (08:20)
[2021-08-08] MEDS: Nystatin POWDER 30 GM BOTTLE TP SCH ×3 (08:21→20:34)
[2021-08-08] MEDS: Sennosides/Docusate Sodium TABLET PO SCH ×2 (10:15→20:32)
[2021-08-08] MEDS: Bisacodyl 10 MG RECTAL SUPPOSITORY RC SCH (10:15)
[2021-08-08] MEDS ORDERED: LEVOFLOXACIN 750 MG/150 ML IVPB SCH (13:00)
[2021-08-09 06:47] LABS: Basophils % 0.3 %; Hematocrit 34.9 % (35.3-44.9)
[2021-08-09 06:49] LABS: Eosinophils # 0.6 K/mcL (0.0-0.6); Eosinophils % 10.8 %; Hemoglobin 10.4 g/dL (11.5-15.4); Immature Granulocytes % 0.5 % (0-4); Immature Platelets 6.9 % (1.1-6.1); Lymphocytes # 1.6 K/mcL (0.6-4.6); Lymphocytes % 26.8 %; Mean Corpuscular HGB Conc 29.8 g/dL (31.6-35.5); Mean Corpuscular Hemoglobin 23.2 pg (28.0-33.3); Mean Corpuscular Volume 77.7 fL (83.0-100.0); Mean Platelet Volume 10.9 fL (9.4-12.4); Monocytes # 0.4 K/mcL (0.0-1.3); Neutrophils # 3.2 K/mcL (1.6-8.9); Platelet Count 184 K/mcL (140-400); Red Blood Count 4.49 M/mcL (3.82-4.97); Segmented Neutrophils % 54.6 %; White Blood Count 5.8 K/mcL (4.3-11.1)
[2021-08-09 07:06] LABS: BUN/Creatinine Ratio 24 (6-26); Blood Urea Nitrogen 20 mg/dL (6-20); Calcium 9.2 mg/dL (8.6-10.3); Carbon Dioxide 26 mEq/L (23-29); Chloride 103 mEq/L (98-107); Glucose 203 mg/dL (70-105); Osmolality,Calculated 288 (280-300); Potassium 4.1 mEq/L (3.5-5.1); Sodium 135 mEq/L (136-145); eGFR For African Americans > 60 (> 60); eGFR For Non-African Americans > 60 (> 60)
[2021-08-09] MEDS: 0.9 % Sodium Chloride 1,000 ML IVC SCH (07:28)
[2021-08-09] MEDS: levETIRAcetam 250 MG TABLET PO SCH ×2 (08:21→20:19)
[2021-08-09] MEDS: Sennosides/Docusate Sodium TABLET PO SCH ×2 (08:22→20:17)
[2021-08-09] MEDS: Gabapentin 300 MG CAPSULE PO SCH ×3 (08:22→20:19)
[2021-08-09] MEDS: *HR* Ticagrelor 90 MG TABLET PO SCH ×2 (08:22→20:19)
[2021-08-09] MEDS: Metoprolol XL (24 HR) Succ 50 MG TAB.ER.24H PO SCH (08:22)
[2021-08-09] MEDS: *HR* Amiodarone 200 MG TABLET PO SCH (08:22)
[2021-08-09] MEDS: Apixaban 5 MG TABLET PO SCH ×2 (08:22→20:20)
[2021-08-09] MEDS: Zonisamide 100 MG CAPSULE PO SCH ×2 (08:23→20:20)
[2021-08-09] MEDS: *HR* OxyCODONE Immed Rel 5 MG TABLET PO PRN (08:25)
[2021-08-09] MEDS: Insulin LISPRO 300 UNITS/3 ML VIAL SUBQ SCH ×4 (08:25→20:22)
[2021-08-09] MEDS: Bisacodyl 10 MG RECTAL SUPPOSITORY RC SCH (08:40)
[2021-08-09] MEDS: Nystatin POWDER 30 GM BOTTLE TP SCH ×3 (09:52→20:21)
[2021-08-09] MEDS: predniSONE 20 MG TABLET PO SCH (12:05)
[2021-08-09] MEDS: levoFLOXacin 750 MG/150 ML 750 MG/150 ML BAG IVPB SCH (14:21)
[2021-08-09] MEDS ORDERED: Hydrocortisone Sodium Succ 100 MG/2 ML VIAL IVP ONE (16:45)
[2021-08-09] MEDS: Loratadine 10 MG TABLET PO SCH (17:49)
[2021-08-09] MEDS: Famotidine 20 MG TABLET PO SCH (20:20)
[2021-08-10] MEDS: *HR* OxyCODONE Immed Rel 5 MG TABLET PO PRN ×4 (01:23→20:44)
[2021-08-10 01:52] LABS: BUN/Creatinine Ratio 22 (6-26); Blood Urea Nitrogen 17 mg/dL (6-20); Calcium 9.6 mg/dL (8.6-10.3); Carbon Dioxide 24 mEq/L (23-29); Chloride 103 mEq/L (98-107); Glucose 248 mg/dL (70-105); Osmolality,Calculated 290 (280-300); Potassium 4.2 mEq/L (3.5-5.1); Sodium 135 mEq/L (136-145); eGFR For African Americans > 60 (> 60); eGFR For Non-African Americans > 60 (> 60)
[2021-08-10 01:54] LABS: Basophils % 0.5 %; Hematocrit 37.6 % (35.3-44.9); Hemoglobin 11.4 g/dL (11.5-15.4); Immature Granulocytes % 0.5 % (0-4); Immature Platelets 6.2 % (1.1-6.1); Lymphocytes # 0.7 K/mcL (0.6-4.6); Lymphocytes % 16.1 %; Mean Corpuscular HGB Conc 30.3 g/dL (31.6-35.5); Mean Corpuscular Hemoglobin 23.2 pg (28.0-33.3); Mean Corpuscular Volume 76.4 fL (83.0-100.0); Mean Platelet Volume 10.6 fL (9.4-12.4); Monocytes # 0.2 K/mcL (0.0-1.3); Monocytes % 3.6 %; Platelet Count 203 K/mcL (140-400); Red Blood Count 4.92 M/mcL (3.82-4.97); Red Cell Distribution Width 21.2 % (11.5-14.5); Segmented Neutrophils % 79.3 %; White Blood Count 4.2 K/mcL (4.3-11.1)
[2021-08-10 02:07] LABS: Neutrophils # 3.3 K/mcL (1.6-8.9)
[2021-08-10] MEDS: Metoprolol XL (24 HR) Succ 50 MG TAB.ER.24H PO SCH (09:10)
[2021-08-10] MEDS: predniSONE 20 MG TABLET PO SCH (09:10)
[2021-08-10] MEDS: *HR* Ticagrelor 90 MG TABLET PO SCH ×2 (09:11→20:45)
[2021-08-10] MEDS: Apixaban 5 MG TABLET PO SCH ×2 (09:11→20:45)
[2021-08-10] MEDS: Sennosides/Docusate Sodium TABLET PO SCH ×2 (09:11→20:59)
[2021-08-10] MEDS: levETIRAcetam 250 MG TABLET PO SCH ×2 (09:11→20:46)
[2021-08-10] MEDS: Loratadine 10 MG TABLET PO SCH (09:11)
[2021-08-10] MEDS: Famotidine 20 MG TABLET PO SCH ×2 (09:12→20:47)
[2021-08-10] MEDS: Gabapentin 300 MG CAPSULE PO SCH ×3 (09:12→20:47)
[2021-08-10] MEDS: Insulin LISPRO 300 UNITS/3 ML VIAL SUBQ SCH ×4 (09:12→20:48)
[2021-08-10] MEDS: Zonisamide 100 MG CAPSULE PO SCH ×2 (09:12→20:45)
[2021-08-10] MEDS: *HR* Amiodarone 200 MG TABLET PO SCH (09:12)
[2021-08-10] MEDS: Bisacodyl 10 MG RECTAL SUPPOSITORY RC SCH (09:12)
[2021-08-10] MEDS: Nystatin POWDER 30 GM BOTTLE TP SCH ×2 (09:13→13:43)
[2021-08-10] MEDS: levoFLOXacin 750 MG/150 ML 750 MG/150 ML BAG IVPB SCH (13:42)
[2021-08-10] MEDS ORDERED: Insulin DETEMIR 100 UNIT/ML X5UNITS SUBQ SCH (21:00)
[2021-08-11] MEDS: Nystatin POWDER 30 GM BOTTLE TP SCH ×2 (02:34→08:52)
[2021-08-11 02:50] LABS: Basophils % 0.5 %; Eosinophils # 0.1 K/mcL (0.0-0.6); Eosinophils % 0.8 %; Hematocrit 37.6 % (35.3-44.9); Hemoglobin 11.3 g/dL (11.5-15.4); Immature Granulocytes % 0.8 % (0-4); Lymphocytes # 2.3 K/mcL (0.6-4.6); Lymphocytes % 29.9 %; Mean Corpuscular HGB Conc 30.1 g/dL (31.6-35.5); Mean Corpuscular Hemoglobin 22.9 pg (28.0-33.3); Mean Corpuscular Volume 76.1 fL (83.0-100.0); Mean Platelet Volume 10.6 fL (9.4-12.4); Monocytes # 0.4 K/mcL (0.0-1.3); Monocytes % 4.8 %; Neutrophils # 4.9 K/mcL (1.6-8.9); Platelet Count 208 K/mcL (140-400); Red Blood Count 4.94 M/mcL (3.82-4.97); Red Cell Distribution Width 21.2 % (11.5-14.5); Segmented Neutrophils % 63.2 %; White Blood Count 7.7 K/mcL (4.3-11.1)
[2021-08-11 03:07] LABS: BUN/Creatinine Ratio 23 (6-26); Blood Urea Nitrogen 19 mg/dL (6-20); Calcium 9.7 mg/dL (8.6-10.3); Carbon Dioxide 28 mEq/L (23-29); Chloride 100 mEq/L (98-107); Glucose 239 mg/dL (70-105); Osmolality,Calculated 288 (280-300); Potassium 4.1 mEq/L (3.5-5.1); Sodium 134 mEq/L (136-145); eGFR For African Americans > 60 (> 60); eGFR For Non-African Americans > 60 (> 60)
[2021-08-11 03:35] VITALS: PULSE 73
[2021-08-11] MEDS: Zonisamide 100 MG CAPSULE PO SCH (08:50)
[2021-08-11] MEDS: Gabapentin 300 MG CAPSULE PO SCH (08:50)
[2021-08-11] MEDS: Insulin LISPRO 300 UNITS/3 ML VIAL SUBQ SCH ×2 (08:50→11:55)
[2021-08-11] MEDS: Bisacodyl 10 MG RECTAL SUPPOSITORY RC SCH (08:50)
[2021-08-11] MEDS: predniSONE 20 MG TABLET PO SCH (08:51)
[2021-08-11] MEDS: *HR* Ticagrelor 90 MG TABLET PO SCH (08:51)
[2021-08-11] MEDS: Sennosides/Docusate Sodium TABLET PO SCH (08:51)
[2021-08-11] MEDS: Apixaban 5 MG TABLET PO SCH (08:51)
[2021-08-11] MEDS: Famotidine 20 MG TABLET PO SCH (08:51)
[2021-08-11] MEDS: Loratadine 10 MG TABLET PO SCH (08:51)
[2021-08-11] MEDS: Metoprolol XL (24 HR) Succ 50 MG TAB.ER.24H PO SCH (08:51)
[2021-08-11] MEDS: *HR* Amiodarone 200 MG TABLET PO SCH (08:51)
[2021-08-11] MEDS: levETIRAcetam 250 MG TABLET PO SCH (08:51)
[2021-08-11] MEDS ORDERED: levoFLOXacin 750 MG TABLET PO ONE (08:58)
[2021-08-11 11:18] VITALS: BP 155/75; TEMP 98.5; O2SAT 98
== END 2021-08-11 13:38 | disposition home or self-care (01) | DRG 871 ==
LOC: EMEROOARM 10:20 → 2ANU 10:20 → SUATTDRO 15:07 → 2ANU 16:16
PROVIDERS: ADMIT Internal Medicine; ATTEND Internal Medicine

== ENCOUNTER 2022-04-05 09:41 | Inpatient (IN) ==
[2022-04-05] MEDS ORDERED: 0.9 % Sodium Chloride 1,000 ML IVC ONE (10:17)
[2022-04-05] MEDS ORDERED: Ondansetron 4 MG/2 ML VIAL IVP ONE (10:17)
[2022-04-05 11:01] LABS: Bacteria,Urine Few per hpf (None-Few); Bilirubin,Urine Negative (Negative); Blood,Urine Moderate (Negative); Clarity,Urine Ex.Turbid (Clear); Color,Urine Yellow (Yellow); Glucose,Urine (UA) >=1000 mg/dL (Normal); Ketones,Urine 10 mg/dL (Negative); Leukocyte Esterase,Urine Large (Negative); Mucus,Urine Few per lpf (None-Few); Nitrite,Urine Positive (Negative); Protein,Urine >=300 mg/dL (Neg-Trace); Specific Gravity,Urine 1.028 (1.010-1.025); Squamous Epithelial Cell,Urine Few per hpf (None-Few); Urobilinogen,Urine Normal (Normal); WBC,Urine TNTC per hpf (0-3)
[2022-04-05 11:23] LABS: INR 1.4; Prothrombin Time 15.1 Seconds (9.4-12.1)
[2022-04-05 11:24] LABS: Basophils # 0.1 K/mcL (0.0-0.2); Basophils % 0.8 %; Eosinophils # 0.1 K/mcL (0.0-0.6); Eosinophils % 1.4 %; Hematocrit 44.7 % (35.3-44.9); Hemoglobin 13.1 g/dL (11.5-15.4); Immature Granulocytes % 0.5 % (0-4); Lymphocytes # 1.8 K/mcL (0.6-4.6); Lymphocytes % 22.8 %; Mean Corpuscular HGB Conc 29.3 g/dL (31.6-35.5); Mean Corpuscular Hemoglobin 22.1 pg (28.0-33.3); Mean Corpuscular Volume 75.3 fL (83.0-100.0); Mean Platelet Volume 11.8 fL (9.4-12.4); Monocytes # 0.4 K/mcL (0.0-1.3); Monocytes % 4.8 %; Neutrophils # 5.5 K/mcL (1.6-8.9); Platelet Count 236 K/mcL (140-400); Red Blood Count 5.94 M/mcL (3.82-4.97); Red Cell Distribution Width 18.1 % (11.5-14.5); Segmented Neutrophils % 69.7 %; White Blood Count 7.8 K/mcL (4.3-11.1)
[2022-04-05] MEDS ORDERED: levoFLOXacin 750 MG/150 ML 750 MG/150 ML BAG IVPB ONE (11:28)
[2022-04-05 11:36] LABS: Alanine Aminotransferase 17 Units/L (7-52); Albumin 3.7 g/dL (3.5-5.7); Albumin/Globulin Ratio 1.2 (1.1-2.2); Alkaline Phosphatase 226 Units/L (34-104); Aspartate Amino Transferase 19 Units/L (13-39); BUN/Creatinine Ratio 11 (6-26); Bilirubin,Total 0.5 mg/dL (0.3-1.0); Blood Urea Nitrogen 11 mg/dL (6-20); Calcium 9.3 mg/dL (8.6-10.3); Carbon Dioxide 30 mEq/L (23-29); Chloride 101 mEq/L (98-107); Glucose 319 mg/dL (70-105); Osmolality,Calculated 296 (280-300); Potassium 4.5 mEq/L (3.5-5.1); Sodium 137 mEq/L (136-145); Total Protein 6.7 g/dL (6.4-8.9); Troponin I < 0.03 ng/mL (< 0.04); eGFR For African Americans > 60 (> 60); eGFR For Non-African Americans 57 (> 60)
[2022-04-05] MEDS ORDERED: Naloxone 0.4 MG/ML INJ IVP PRN (13:27)
[2022-04-05] MEDS: Furosemide 40 MG TABLET PO SCH (16:31)
[2022-04-05] MEDS: Gabapentin 300 MG CAPSULE PO SCH ×2 (16:32→20:11)
[2022-04-05] MEDS: Cefepime HCl 2,000 MG in 0.9 % Sodium Chloride 10 ML IVP SCH (18:43)
[2022-04-05] MEDS: Famotidine 20 MG TABLET PO SCH (20:11)
[2022-04-05] MEDS: Apixaban 5 MG TABLET PO SCH (20:12)
[2022-04-05] MEDS: Zonisamide 100 MG CAPSULE PO SCH (20:12)
[2022-04-05] MEDS: levETIRAcetam 250 MG TABLET PO SCH (20:12)
[2022-04-05] MEDS: *HR* Ticagrelor 90 MG TABLET PO SCH (20:16)
[2022-04-05] MEDS ORDERED: Gabapentin 300 MG CAPSULE PO SCH (21:00)
[2022-04-05] MEDS ORDERED: Dextrose 4 GM Chewable Tablets PO PRN ×2 (23:14)
[2022-04-05] MEDS ORDERED: D5% in Water 1,000 ML IVC PRN (23:14)
[2022-04-06] MEDS: Insulin LISPRO 300 UNITS/3 ML VIAL SUBQ SCH ×5 (00:05→17:34)
[2022-04-06] MEDS: Melatonin 3 MG TABLET PO PRN (03:24)
[2022-04-06] MEDS: Cefepime HCl 2,000 MG in 0.9 % Sodium Chloride 10 ML IVP SCH ×2 (05:26→17:39)
[2022-04-06 06:05] LABS: White Blood Count 9.3 K/mcL (4.3-11.1)
[2022-04-06 06:06] LABS: Basophils # 0.1 K/mcL (0.0-0.2); Basophils % 0.8 %; Eosinophils # 0.2 K/mcL (0.0-0.6); Eosinophils % 2.4 %; Hematocrit 43.1 % (35.3-44.9); Hemoglobin 12.6 g/dL (11.5-15.4); Immature Granulocytes % 0.8 % (0-4); Lymphocytes # 2.9 K/mcL (0.6-4.6); Mean Corpuscular HGB Conc 29.2 g/dL (31.6-35.5); Mean Corpuscular Volume 75.2 fL (83.0-100.0); Mean Platelet Volume 11.4 fL (9.4-12.4); Monocytes # 0.6 K/mcL (0.0-1.3); Monocytes % 6.7 %; Neutrophils # 5.4 K/mcL (1.6-8.9); Platelet Count 206 K/mcL (140-400); Red Blood Count 5.73 M/mcL (3.82-4.97); Segmented Neutrophils % 58.3 %
[2022-04-06 06:26] LABS: BUN/Creatinine Ratio 13 (6-26); Blood Urea Nitrogen 13 mg/dL (6-20); Calcium 9.1 mg/dL (8.6-10.3); Carbon Dioxide 26 mEq/L (23-29); Chloride 102 mEq/L (98-107); Glucose 215 mg/dL (70-105); Magnesium 1.5 mg/dL (1.6-2.6); Osmolality,Calculated 289 (280-300); Potassium 3.4 mEq/L (3.5-5.1); Sodium 136 mEq/L (136-145); eGFR For African Americans > 60 (> 60); eGFR For Non-African Americans 55 (> 60)
[2022-04-06] MEDS: Nitroglycerin 0.4 MG PATCH.TD24 TD SCH (09:20)
[2022-04-06] MEDS: Metoprolol XL (24 HR) Succ 50 MG TAB.ER.24H PO SCH (09:21)
[2022-04-06] MEDS: Spironolactone 25 MG TABLET PO SCH (09:21)
[2022-04-06] MEDS: Zonisamide 100 MG CAPSULE PO SCH ×2 (09:22→21:04)
[2022-04-06] MEDS: levETIRAcetam 250 MG TABLET PO SCH ×2 (09:22→21:05)
[2022-04-06] MEDS: Apixaban 5 MG TABLET PO SCH ×2 (09:23→21:04)
[2022-04-06] MEDS: Gabapentin 300 MG CAPSULE PO SCH ×3 (09:23→21:04)
[2022-04-06] MEDS: *HR* Amiodarone 200 MG TABLET PO SCH (09:24)
[2022-04-06] MEDS: Famotidine 20 MG TABLET PO SCH ×2 (09:24→21:04)
[2022-04-06] MEDS: Loratadine 10 MG TABLET PO SCH (09:24)
[2022-04-06] MEDS: *HR* Ticagrelor 90 MG TABLET PO SCH ×2 (09:24→21:04)
[2022-04-06] MEDS: Furosemide 40 MG TABLET PO SCH ×2 (09:24→17:38)
[2022-04-06] MEDS: Acetaminophen 325 MG TABLET PO PRN (15:55)
[2022-04-06] MEDS: ALPRAZolam 0.5 MG TABLET PO PRN (15:58)
[2022-04-07] MEDS: Cefepime HCl 2,000 MG in 0.9 % Sodium Chloride 10 ML IVP SCH (05:24)
[2022-04-07] MEDS ORDERED: *HR* Insulin Regular U-500 500 UNIT/ML SUBQ SCH ×2 (08:00→12:02)
[2022-04-07] MEDS: Insulin LISPRO 300 UNITS/3 ML VIAL SUBQ SCH (08:32)
[2022-04-07] MEDS: *HR* Ticagrelor 90 MG TABLET PO SCH ×2 (08:49→22:02)
[2022-04-07] MEDS: *HR* Amiodarone 200 MG TABLET PO SCH (08:50)
[2022-04-07] MEDS: Furosemide 40 MG TABLET PO SCH ×2 (08:50→17:39)
[2022-04-07] MEDS: Famotidine 20 MG TABLET PO SCH ×2 (08:50→22:02)
[2022-04-07] MEDS: Metoprolol XL (24 HR) Succ 50 MG TAB.ER.24H PO SCH (08:50)
[2022-04-07] MEDS: Gabapentin 300 MG CAPSULE PO SCH ×3 (08:50→22:02)
[2022-04-07] MEDS: Loratadine 10 MG TABLET PO SCH (08:50)
[2022-04-07] MEDS: Spironolactone 25 MG TABLET PO SCH (08:50)
[2022-04-07] MEDS: Zonisamide 100 MG CAPSULE PO SCH ×2 (08:51→22:02)
[2022-04-07] MEDS: Apixaban 5 MG TABLET PO SCH ×2 (08:51→22:02)
[2022-04-07] MEDS: levETIRAcetam 250 MG TABLET PO SCH ×2 (08:51→22:02)
[2022-04-07] MEDS: Nitroglycerin 0.4 MG PATCH.TD24 TD SCH (08:52)
[2022-04-07] MEDS: *HR* Insulin Regular U-500 500 UNIT/ML SUBQ SCH (09:43)
[2022-04-07] MEDS: ALPRAZolam 0.5 MG TABLET PO PRN (15:22)
[2022-04-07] MEDS: *HR* OxyCODONE Immed Rel 5 MG TABLET PO PRN (15:23)
[2022-04-08] MEDS: *HR* Dextrose 50 % in Water (Syg) 50 ML SYRINGE IVP PRN (00:51)
[2022-04-08 06:57] LABS: Hematocrit 41.1 % (35.3-44.9); Immature Platelets 11.2 % (1.1-6.1); Mean Corpuscular HGB Conc 29.2 g/dL (31.6-35.5); Mean Corpuscular Hemoglobin 21.8 pg (28.0-33.3); Mean Corpuscular Volume 74.7 fL (83.0-100.0); Mean Platelet Volume 11.3 fL (9.4-12.4); Red Blood Count 5.5 M/mcL (3.82-4.97); White Blood Count 10.2 K/mcL (4.3-11.1)
[2022-04-08 07:10] LABS: Calcium 9.3 mg/dL (8.6-10.3); Potassium 3.4 mEq/L (3.5-5.1)
[2022-04-08] MEDS ORDERED: 0.9 % Sodium Chloride 1,000 ML IVC SCH (07:45)
[2022-04-08] MEDS: *HR* Insulin Regular U-500 500 UNIT/ML SUBQ SCH ×4 (08:36→17:46)
[2022-04-08] MEDS: levETIRAcetam 250 MG TABLET PO SCH ×2 (08:52→20:56)
[2022-04-08] MEDS: Zonisamide 100 MG CAPSULE PO SCH ×2 (08:52→20:56)
[2022-04-08] MEDS: Metoprolol XL (24 HR) Succ 50 MG TAB.ER.24H PO SCH (08:52)
[2022-04-08] MEDS: Apixaban 5 MG TABLET PO SCH ×2 (08:53→20:56)
[2022-04-08] MEDS: Loratadine 10 MG TABLET PO SCH (08:53)
[2022-04-08] MEDS: Famotidine 20 MG TABLET PO SCH (08:53)
[2022-04-08] MEDS: Gabapentin 300 MG CAPSULE PO SCH ×3 (08:53→20:56)
[2022-04-08] MEDS: *HR* Ticagrelor 90 MG TABLET PO SCH ×2 (08:53→21:04)
[2022-04-08] MEDS: Nitroglycerin 0.4 MG PATCH.TD24 TD SCH (08:53)
[2022-04-08] MEDS: *HR* Amiodarone 200 MG TABLET PO SCH (08:53)
[2022-04-08] MEDS: *HR* OxyCODONE Immed Rel 5 MG TABLET PO PRN ×2 (09:02→22:40)
[2022-04-08] MEDS: ALPRAZolam 0.5 MG TABLET PO PRN (09:05)
[2022-04-08] MEDS: Acetaminophen 325 MG TABLET PO PRN (21:04)
[2022-04-09] MEDS ORDERED: 0.9 % Sodium Chloride 1,000 ML IV ONE ×2 (00:43→04:31)
[2022-04-09 05:53] LABS: Calcium 8.7 mg/dL (8.6-10.3); Potassium 3.7 mEq/L (3.5-5.1)
[2022-04-09] MEDS: Famotidine 20 MG TABLET PO SCH (10:23)
[2022-04-09] MEDS: *HR* Ticagrelor 90 MG TABLET PO SCH ×2 (10:23→20:51)
[2022-04-09] MEDS: Metoprolol XL (24 HR) Succ 50 MG TAB.ER.24H PO SCH (10:24)
[2022-04-09] MEDS: Apixaban 5 MG TABLET PO SCH ×2 (10:24→20:51)
[2022-04-09] MEDS: 0.9 % Sodium Chloride 1,000 ML IVC SCH ×2 (10:24→20:48)
[2022-04-09] MEDS: *HR* Amiodarone 200 MG TABLET PO SCH (10:24)
[2022-04-09] MEDS: Gabapentin 300 MG CAPSULE PO SCH ×3 (10:24→20:51)
[2022-04-09] MEDS: Zonisamide 100 MG CAPSULE PO SCH ×2 (10:24→20:51)
[2022-04-09] MEDS: Loratadine 10 MG TABLET PO SCH (10:24)
[2022-04-09] MEDS: levETIRAcetam 250 MG TABLET PO SCH ×2 (10:24→20:50)
[2022-04-09] MEDS: Nitroglycerin 0.4 MG PATCH.TD24 TD SCH (10:29)
[2022-04-09] MEDS: *HR* Insulin Regular U-500 500 UNIT/ML SUBQ SCH ×3 (11:33→18:06)
[2022-04-09] MEDS: ALPRAZolam 0.5 MG TABLET PO PRN (12:46)
[2022-04-09] MEDS: *HR* OxyCODONE Immed Rel 5 MG TABLET PO PRN ×2 (15:45→21:08)
[2022-04-09] MEDS: Nystatin POWDER 30 GM BOTTLE TP SCH (20:55)
[2022-04-09] MEDS: Melatonin 3 MG TABLET PO PRN (21:08)
[2022-04-10 06:20] LABS: Hematocrit 38.5 % (35.3-44.9); Hemoglobin 11.1 g/dL (11.5-15.4); Mean Corpuscular HGB Conc 28.8 g/dL (31.6-35.5); Mean Platelet Volume 12.3 fL (9.4-12.4)
[2022-04-10 06:22] LABS: Immature Platelets 10.5 % (1.1-6.1); Mean Corpuscular Volume 76.2 fL (83.0-100.0); Red Blood Count 5.05 M/mcL (3.82-4.97); Red Cell Distribution Width 17.9 % (11.5-14.5)
[2022-04-10 06:26] LABS: BUN/Creatinine Ratio 24 (6-26); Blood Urea Nitrogen 25 mg/dL (6-20); Calcium 8.7 mg/dL (8.6-10.3); Carbon Dioxide 26 mEq/L (23-29); Chloride 105 mEq/L (98-107); Glucose 81 mg/dL (70-105); Osmolality,Calculated 285 (280-300); Sodium 136 mEq/L (136-145); eGFR For African Americans > 60 (> 60); eGFR For Non-African Americans 56 (> 60)
[2022-04-10] MEDS: Nystatin POWDER 30 GM BOTTLE TP SCH ×2 (08:42→20:22)
[2022-04-10] MEDS: levETIRAcetam 250 MG TABLET PO SCH ×2 (08:43→20:21)
[2022-04-10] MEDS: Nitroglycerin 0.4 MG PATCH.TD24 TD SCH (08:43)
[2022-04-10] MEDS: Apixaban 5 MG TABLET PO SCH ×2 (08:44→20:20)
[2022-04-10] MEDS: Famotidine 20 MG TABLET PO SCH (08:44)
[2022-04-10] MEDS: Zonisamide 100 MG CAPSULE PO SCH ×2 (08:44→20:19)
[2022-04-10] MEDS: *HR* Amiodarone 200 MG TABLET PO SCH (08:44)
[2022-04-10] MEDS: Loratadine 10 MG TABLET PO SCH (08:44)
[2022-04-10] MEDS: Metoprolol XL (24 HR) Succ 50 MG TAB.ER.24H PO SCH (08:44)
[2022-04-10] MEDS: *HR* Ticagrelor 90 MG TABLET PO SCH ×2 (08:45→20:21)
[2022-04-10] MEDS: *HR* OxyCODONE Immed Rel 5 MG TABLET PO PRN ×2 (08:45→20:19)
[2022-04-10] MEDS: Gabapentin 300 MG CAPSULE PO SCH ×3 (08:45→20:19)
[2022-04-10] MEDS: *HR* Insulin Regular U-500 500 UNIT/ML SUBQ SCH ×3 (08:52→18:13)
[2022-04-10] MEDS: ALPRAZolam 0.5 MG TABLET PO PRN ×2 (12:30→20:24)
[2022-04-10] MEDS: ARIPiprazole 2 MG TABLET PO SCH (20:21)
[2022-04-11] MEDS: *HR* OxyCODONE Immed Rel 5 MG TABLET PO PRN ×3 (01:49→17:34)
[2022-04-11] MEDS: Zonisamide 100 MG CAPSULE PO SCH ×2 (10:18→20:42)
[2022-04-11] MEDS: *HR* Ticagrelor 90 MG TABLET PO SCH ×2 (10:18→20:42)
[2022-04-11] MEDS: Loratadine 10 MG TABLET PO SCH (10:19)
[2022-04-11] MEDS: Famotidine 20 MG TABLET PO SCH (10:19)
[2022-04-11] MEDS: *HR* Amiodarone 200 MG TABLET PO SCH (10:19)
[2022-04-11] MEDS: levETIRAcetam 250 MG TABLET PO SCH ×2 (10:19→20:42)
[2022-04-11] MEDS: *HR* Insulin Regular U-500 500 UNIT/ML SUBQ SCH ×3 (10:20→17:31)
[2022-04-11] MEDS: Metoprolol XL (24 HR) Succ 50 MG TAB.ER.24H PO SCH (10:20)
[2022-04-11] MEDS: Apixaban 5 MG TABLET PO SCH ×2 (10:20→20:42)
[2022-04-11] MEDS: Gabapentin 300 MG CAPSULE PO SCH ×3 (10:20→20:42)
[2022-04-11] MEDS: Nitroglycerin 0.4 MG PATCH.TD24 TD SCH (10:21)
[2022-04-11] MEDS: Nystatin POWDER 30 GM BOTTLE TP SCH ×2 (10:24→21:46)
[2022-04-11] MEDS: Acetaminophen 325 MG TABLET PO PRN (13:12)
[2022-04-11] MEDS: ARIPiprazole 2 MG TABLET PO SCH (20:41)
[2022-04-11] MEDS: ALPRAZolam 0.5 MG TABLET PO PRN (20:41)
[2022-04-12] MEDS: *HR* OxyCODONE Immed Rel 5 MG TABLET PO PRN (05:48)
[2022-04-12] MEDS: *HR* Insulin Regular U-500 500 UNIT/ML SUBQ SCH ×3 (08:05→17:57)
[2022-04-12] MEDS: Nitroglycerin 0.4 MG PATCH.TD24 TD SCH (08:06)
[2022-04-12] MEDS: Metoprolol XL (24 HR) Succ 50 MG TAB.ER.24H PO SCH (08:06)
[2022-04-12] MEDS: Famotidine 20 MG TABLET PO SCH (08:07)
[2022-04-12] MEDS: Nystatin POWDER 30 GM BOTTLE TP SCH ×2 (08:07→21:09)
[2022-04-12] MEDS: Loratadine 10 MG TABLET PO SCH (08:07)
[2022-04-12] MEDS: *HR* Amiodarone 200 MG TABLET PO SCH (08:07)
[2022-04-12] MEDS: *HR* Ticagrelor 90 MG TABLET PO SCH ×2 (08:07→21:08)
[2022-04-12] MEDS: Gabapentin 300 MG CAPSULE PO SCH ×3 (08:07→21:08)
[2022-04-12] MEDS: Zonisamide 100 MG CAPSULE PO SCH ×2 (08:07→21:08)
[2022-04-12] MEDS: Apixaban 5 MG TABLET PO SCH ×2 (08:07→21:08)
[2022-04-12] MEDS: levETIRAcetam 250 MG TABLET PO SCH ×2 (08:07→21:08)
[2022-04-12] MEDS: ALPRAZolam 0.5 MG TABLET PO PRN ×2 (14:28→22:12)
[2022-04-12] MEDS: ARIPiprazole 2 MG TABLET PO SCH (21:07)
[2022-04-12] MEDS: Ondansetron ODT 4 MG TAB.RAPDIS SL PRN (22:13)
[2022-04-13] MEDS: *HR* Ticagrelor 90 MG TABLET PO SCH ×2 (09:11→21:26)
[2022-04-13] MEDS: Apixaban 5 MG TABLET PO SCH ×2 (09:11→21:24)
[2022-04-13] MEDS: Gabapentin 300 MG CAPSULE PO SCH ×3 (09:11→21:24)
[2022-04-13] MEDS: *HR* Insulin Regular U-500 500 UNIT/ML SUBQ SCH ×3 (09:11→17:07)
[2022-04-13] MEDS: Zonisamide 100 MG CAPSULE PO SCH ×2 (09:11→21:24)
[2022-04-13] MEDS: Famotidine 20 MG TABLET PO SCH (09:11)
[2022-04-13] MEDS: *HR* Amiodarone 200 MG TABLET PO SCH (09:11)
[2022-04-13] MEDS: Nitroglycerin 0.4 MG PATCH.TD24 TD SCH (09:11)
[2022-04-13] MEDS: Loratadine 10 MG TABLET PO SCH (09:12)
[2022-04-13] MEDS: levETIRAcetam 250 MG TABLET PO SCH ×2 (09:12→21:25)
[2022-04-13] MEDS: Metoprolol XL (24 HR) Succ 50 MG TAB.ER.24H PO SCH (09:12)
[2022-04-13] MEDS: Nystatin POWDER 30 GM BOTTLE TP SCH ×2 (09:15→21:26)
[2022-04-13] MEDS: Acetaminophen 325 MG TABLET PO PRN ×2 (15:02→21:24)
[2022-04-13] MEDS: *HR* OxyCODONE Immed Rel 5 MG TABLET PO PRN (17:06)
[2022-04-13] MEDS: ARIPiprazole 2 MG TABLET PO SCH (21:24)
[2022-04-14] MEDS: *HR* OxyCODONE Immed Rel 5 MG TABLET PO PRN ×2 (01:28→20:47)
[2022-04-14] MEDS: Melatonin 3 MG TABLET PO PRN ×2 (01:28→20:46)
[2022-04-14] MEDS: Zonisamide 100 MG CAPSULE PO SCH ×2 (10:13→20:43)
[2022-04-14] MEDS: Apixaban 5 MG TABLET PO SCH ×2 (10:13→20:43)
[2022-04-14] MEDS: Loratadine 10 MG TABLET PO SCH (10:13)
[2022-04-14] MEDS: levETIRAcetam 250 MG TABLET PO SCH ×2 (10:14→20:42)
[2022-04-14] MEDS: Famotidine 20 MG TABLET PO SCH (10:14)
[2022-04-14] MEDS: Gabapentin 300 MG CAPSULE PO SCH ×3 (10:14→20:43)
[2022-04-14] MEDS: *HR* Ticagrelor 90 MG TABLET PO SCH ×2 (10:15→20:43)
[2022-04-14] MEDS: Metoprolol XL (24 HR) Succ 50 MG TAB.ER.24H PO SCH (10:15)
[2022-04-14] MEDS: *HR* Amiodarone 200 MG TABLET PO SCH (10:15)
[2022-04-14] MEDS: Nitroglycerin 0.4 MG PATCH.TD24 TD SCH (10:16)
[2022-04-14] MEDS: *HR* Insulin Regular U-500 500 UNIT/ML SUBQ SCH ×3 (10:16→18:08)
[2022-04-14] MEDS: Nystatin POWDER 30 GM BOTTLE TP SCH ×2 (12:03→20:44)
[2022-04-14] MEDS: ARIPiprazole 2 MG TABLET PO SCH (20:43)
[2022-04-15 05:44] LABS: Hematocrit 37.4 % (35.3-44.9)
[2022-04-15] MEDS: *HR* Insulin Regular U-500 500 UNIT/ML SUBQ SCH ×3 (10:46→19:20)
[2022-04-15] MEDS: Apixaban 5 MG TABLET PO SCH ×2 (10:46→20:18)
[2022-04-15] MEDS: *HR* Ticagrelor 90 MG TABLET PO SCH ×2 (10:46→20:18)
[2022-04-15] MEDS: *HR* Amiodarone 200 MG TABLET PO SCH (10:46)
[2022-04-15] MEDS: Loratadine 10 MG TABLET PO SCH (10:46)
[2022-04-15] MEDS: Gabapentin 300 MG CAPSULE PO SCH ×3 (10:47→20:19)
[2022-04-15] MEDS: Metoprolol XL (24 HR) Succ 50 MG TAB.ER.24H PO SCH (10:48)
[2022-04-15] MEDS: Nystatin POWDER 30 GM BOTTLE TP SCH ×2 (10:48→20:21)
[2022-04-15] MEDS: Zonisamide 100 MG CAPSULE PO SCH ×2 (10:48→20:19)
[2022-04-15] MEDS: Nitroglycerin 0.4 MG PATCH.TD24 TD SCH (10:48)
[2022-04-15] MEDS: Famotidine 20 MG TABLET PO SCH (10:48)
[2022-04-15] MEDS: levETIRAcetam 250 MG TABLET PO SCH ×2 (10:50→20:20)
[2022-04-15] MEDS: ALPRAZolam 0.5 MG TABLET PO PRN (14:37)
[2022-04-15] MEDS: ARIPiprazole 2 MG TABLET PO SCH (20:18)
[2022-04-15] MEDS: Melatonin 3 MG TABLET PO PRN (20:19)
[2022-04-16] MEDS ORDERED: polyethylene glycoL 3350 17 GM POWD.PACK PO PRN (01:17)
[2022-04-16] MEDS: Nitroglycerin 0.4 MG PATCH.TD24 TD SCH (09:04)
[2022-04-16] MEDS: Metoprolol XL (24 HR) Succ 50 MG TAB.ER.24H PO SCH (09:05)
[2022-04-16] MEDS: levETIRAcetam 250 MG TABLET PO SCH ×2 (09:05→20:22)
[2022-04-16] MEDS: Loratadine 10 MG TABLET PO SCH (09:06)
[2022-04-16] MEDS: *HR* Ticagrelor 90 MG TABLET PO SCH ×2 (09:06→20:22)
[2022-04-16] MEDS: Famotidine 20 MG TABLET PO SCH (09:06)
[2022-04-16] MEDS: Gabapentin 300 MG CAPSULE PO SCH ×3 (09:06→20:22)
[2022-04-16] MEDS: Apixaban 5 MG TABLET PO SCH ×2 (09:06→20:22)
[2022-04-16] MEDS: Zonisamide 100 MG CAPSULE PO SCH ×2 (09:06→20:23)
[2022-04-16] MEDS: *HR* Amiodarone 200 MG TABLET PO SCH (09:07)
[2022-04-16] MEDS: *HR* Insulin Regular U-500 500 UNIT/ML SUBQ SCH ×3 (09:15→18:32)
[2022-04-16] MEDS: ALPRAZolam 0.5 MG TABLET PO PRN (09:24)
[2022-04-16] MEDS: Nystatin POWDER 30 GM BOTTLE TP SCH ×2 (10:16→20:23)
[2022-04-16] MEDS: *HR* OxyCODONE Immed Rel 5 MG TABLET PO PRN (14:36)
[2022-04-16] MEDS: Melatonin 3 MG TABLET PO PRN (20:22)
[2022-04-16] MEDS: ARIPiprazole 2 MG TABLET PO SCH (20:23)
[2022-04-17] MEDS: *HR* OxyCODONE Immed Rel 5 MG TABLET PO PRN (01:48)
[2022-04-17] MEDS: Gabapentin 300 MG CAPSULE PO SCH ×3 (09:04→21:19)
[2022-04-17] MEDS: levETIRAcetam 250 MG TABLET PO SCH ×2 (09:04→21:19)
[2022-04-17] MEDS: *HR* Amiodarone 200 MG TABLET PO SCH (09:04)
[2022-04-17] MEDS: Apixaban 5 MG TABLET PO SCH ×2 (09:05→21:21)
[2022-04-17] MEDS: Metoprolol XL (24 HR) Succ 50 MG TAB.ER.24H PO SCH (09:05)
[2022-04-17] MEDS: *HR* Insulin Regular U-500 500 UNIT/ML SUBQ SCH ×3 (09:06→17:26)
[2022-04-17] MEDS: Famotidine 20 MG TABLET PO SCH (09:06)
[2022-04-17] MEDS: *HR* Ticagrelor 90 MG TABLET PO SCH ×2 (09:06→21:19)
[2022-04-17] MEDS: Nitroglycerin 0.4 MG PATCH.TD24 TD SCH (09:06)
[2022-04-17] MEDS: Zonisamide 100 MG CAPSULE PO SCH ×2 (09:06→21:22)
[2022-04-17] MEDS: Loratadine 10 MG TABLET PO SCH (09:06)
[2022-04-17] MEDS: Nystatin POWDER 30 GM BOTTLE TP SCH ×2 (09:07→21:22)
[2022-04-17] MEDS: Ondansetron ODT 4 MG TAB.RAPDIS SL PRN (12:28)
[2022-04-17] MEDS: ARIPiprazole 2 MG TABLET PO SCH (21:21)
[2022-04-18] MEDS: *HR* Insulin Regular U-500 500 UNIT/ML SUBQ SCH ×3 (07:46→17:18)
[2022-04-18] MEDS: Nitroglycerin 0.4 MG PATCH.TD24 TD SCH (09:15)
[2022-04-18] MEDS: levETIRAcetam 250 MG TABLET PO SCH ×2 (09:16→20:32)
[2022-04-18] MEDS: Metoprolol XL (24 HR) Succ 50 MG TAB.ER.24H PO SCH (09:17)
[2022-04-18] MEDS: Apixaban 5 MG TABLET PO SCH ×2 (09:17→20:32)
[2022-04-18] MEDS: *HR* Ticagrelor 90 MG TABLET PO SCH ×2 (09:17→20:32)
[2022-04-18] MEDS: Zonisamide 100 MG CAPSULE PO SCH ×2 (09:18→20:32)
[2022-04-18] MEDS: *HR* Amiodarone 200 MG TABLET PO SCH (09:18)
[2022-04-18] MEDS: Gabapentin 300 MG CAPSULE PO SCH ×3 (09:18→20:32)
[2022-04-18] MEDS: Loratadine 10 MG TABLET PO SCH (09:18)
[2022-04-18] MEDS: Famotidine 20 MG TABLET PO SCH (09:18)
[2022-04-18] MEDS: Nystatin POWDER 30 GM BOTTLE TP SCH ×2 (09:19→20:31)
[2022-04-18] MEDS: ARIPiprazole 2 MG TABLET PO SCH (20:32)
[2022-04-18] MEDS: Melatonin 3 MG TABLET PO PRN (20:34)
[2022-04-18] MEDS: *HR* OxyCODONE Immed Rel 5 MG TABLET PO PRN (20:34)
[2022-04-18] MEDS: ALPRAZolam 0.5 MG TABLET PO PRN (20:34)
[2022-04-19 04:05] LABS: Basophils # 0.1 K/mcL (0.0-0.2); Basophils % 0.6 %; Eosinophils # 0.2 K/mcL (0.0-0.6); Eosinophils % 1.5 %; Hematocrit 38.8 % (35.3-44.9); Hemoglobin 11.6 g/dL (11.5-15.4); Immature Granulocytes % 0.3 % (0-4); Lymphocytes # 2.5 K/mcL (0.6-4.6); Lymphocytes % 21.3 %; Mean Corpuscular HGB Conc 29.9 g/dL (31.6-35.5); Mean Corpuscular Hemoglobin 22.3 pg (28.0-33.3); Mean Corpuscular Volume 74.6 fL (83.0-100.0); Mean Platelet Volume 11.9 fL (9.4-12.4); Monocytes # 0.6 K/mcL (0.0-1.3); Monocytes % 5.2 %; Neutrophils # 8.3 K/mcL (1.6-8.9); Platelet Count 258 K/mcL (140-400); Red Cell Distribution Width 18.6 % (11.5-14.5); Segmented Neutrophils % 71.1 %; White Blood Count 11.6 K/mcL (4.3-11.1)
[2022-04-19 04:22] LABS: BUN/Creatinine Ratio 27 (6-26); Blood Urea Nitrogen 22 mg/dL (6-20); Calcium 9.8 mg/dL (8.6-10.3); Carbon Dioxide 25 mEq/L (23-29); Chloride 106 mEq/L (98-107); Glucose 64 mg/dL (70-105); Osmolality,Calculated 285 (280-300); Potassium 3.8 mEq/L (3.5-5.1); Sodium 137 mEq/L (136-145); eGFR For African Americans > 60 (> 60); eGFR For Non-African Americans > 60 (> 60)
[2022-04-19] MEDS: *HR* OxyCODONE Immed Rel 5 MG TABLET PO PRN ×2 (10:42→20:12)
[2022-04-19] MEDS: Gabapentin 300 MG CAPSULE PO SCH ×3 (10:50→20:36)
[2022-04-19] MEDS: *HR* Amiodarone 200 MG TABLET PO SCH (10:50)
[2022-04-19] MEDS: Famotidine 20 MG TABLET PO SCH (10:50)
[2022-04-19] MEDS: Loratadine 10 MG TABLET PO SCH (10:50)
[2022-04-19] MEDS: levETIRAcetam 250 MG TABLET PO SCH ×2 (10:51→20:36)
[2022-04-19] MEDS: Metoprolol XL (24 HR) Succ 50 MG TAB.ER.24H PO SCH (10:51)
[2022-04-19] MEDS: *HR* Ticagrelor 90 MG TABLET PO SCH ×2 (10:56→20:36)
[2022-04-19] MEDS: *HR* Insulin Regular U-500 500 UNIT/ML SUBQ SCH ×3 (11:05→20:01)
[2022-04-19] MEDS: Apixaban 5 MG TABLET PO SCH ×2 (13:00→20:36)
[2022-04-19] MEDS: Zonisamide 100 MG CAPSULE PO SCH ×2 (13:00→20:36)
[2022-04-19] MEDS: Nystatin POWDER 30 GM BOTTLE TP SCH ×2 (14:00→20:37)
[2022-04-19] MEDS: Nitroglycerin 0.4 MG PATCH.TD24 TD SCH (14:00)
[2022-04-19] MEDS: ARIPiprazole 2 MG TABLET PO SCH (20:35)
[2022-04-19] MEDS: Melatonin 3 MG TABLET PO PRN (20:36)
[2022-04-20] MEDS: Metoprolol XL (24 HR) Succ 50 MG TAB.ER.24H PO SCH (08:40)
[2022-04-20] MEDS: *HR* Amiodarone 200 MG TABLET PO SCH (08:40)
[2022-04-20] MEDS: *HR* Ticagrelor 90 MG TABLET PO SCH ×2 (08:40→21:37)
[2022-04-20] MEDS: Apixaban 5 MG TABLET PO SCH ×2 (08:40→21:37)
[2022-04-20] MEDS: Gabapentin 300 MG CAPSULE PO SCH ×3 (08:40→21:36)
[2022-04-20] MEDS: Nitroglycerin 0.4 MG PATCH.TD24 TD SCH (08:40)
[2022-04-20] MEDS: Famotidine 20 MG TABLET PO SCH (08:41)
[2022-04-20] MEDS: levETIRAcetam 250 MG TABLET PO SCH ×2 (08:41→21:37)
[2022-04-20] MEDS: Zonisamide 100 MG CAPSULE PO SCH ×2 (08:41→21:36)
[2022-04-20] MEDS: Loratadine 10 MG TABLET PO SCH (08:41)
[2022-04-20] MEDS: Nystatin POWDER 30 GM BOTTLE TP SCH ×2 (08:43→21:38)
[2022-04-20] MEDS: *HR* OxyCODONE Immed Rel 5 MG TABLET PO PRN (09:19)
[2022-04-20] MEDS: *HR* Insulin Regular U-500 500 UNIT/ML SUBQ SCH ×3 (09:20→18:07)
[2022-04-20] MEDS: Melatonin 3 MG TABLET PO PRN (21:36)
[2022-04-20] MEDS: ARIPiprazole 2 MG TABLET PO SCH (21:36)
[2022-04-21] MEDS: Miconazole 2% ointment 141 APPL/141 GM TUBE TP SCH ×2 (02:11→09:37)
[2022-04-21] MEDS: *HR* Dextrose 50 % in Water (Syg) 50 ML SYRINGE IVP PRN (04:45)
[2022-04-21] MEDS: levETIRAcetam 250 MG TABLET PO SCH ×2 (09:29→20:50)
[2022-04-21] MEDS: Zonisamide 100 MG CAPSULE PO SCH ×2 (09:29→20:51)
[2022-04-21] MEDS: *HR* Ticagrelor 90 MG TABLET PO SCH ×2 (09:30→20:51)
[2022-04-21] MEDS: Famotidine 20 MG TABLET PO SCH (09:30)
[2022-04-21] MEDS: Metoprolol XL (24 HR) Succ 50 MG TAB.ER.24H PO SCH (09:30)
[2022-04-21] MEDS: Nitroglycerin 0.4 MG PATCH.TD24 TD SCH (09:30)
[2022-04-21] MEDS: *HR* Amiodarone 200 MG TABLET PO SCH (09:31)
[2022-04-21] MEDS: Apixaban 5 MG TABLET PO SCH ×2 (09:31→20:51)
[2022-04-21] MEDS: Gabapentin 300 MG CAPSULE PO SCH ×3 (09:31→20:51)
[2022-04-21] MEDS: Loratadine 10 MG TABLET PO SCH (09:31)
[2022-04-21] MEDS: *HR* Insulin Regular U-500 500 UNIT/ML SUBQ SCH (09:32)
[2022-04-21] MEDS: Nystatin POWDER 30 GM BOTTLE TP SCH ×2 (09:36→20:30)
[2022-04-21] MEDS: Insulin LISPRO 300 UNITS/3 ML VIAL SUBQ SCH ×3 (13:58→20:57)
[2022-04-21] MEDS: *HR* OxyCODONE Immed Rel 5 MG TABLET PO PRN ×2 (16:27→20:53)
[2022-04-21] MEDS: ARIPiprazole 2 MG TABLET PO SCH (20:50)
[2022-04-21] MEDS: Melatonin 3 MG TABLET PO PRN (20:53)
[2022-04-22 05:55] LABS: Estimated Average Glucose 189 mg/dl; Hemoglobin A1C 8.2 %
[2022-04-22] MEDS: Famotidine 20 MG TABLET PO SCH (08:05)
[2022-04-22] MEDS: Metoprolol XL (24 HR) Succ 50 MG TAB.ER.24H PO SCH (08:05)
[2022-04-22] MEDS: levETIRAcetam 250 MG TABLET PO SCH ×2 (08:05→21:32)
[2022-04-22] MEDS: Zonisamide 100 MG CAPSULE PO SCH ×2 (08:06→21:34)
[2022-04-22] MEDS: Loratadine 10 MG TABLET PO SCH (08:06)
[2022-04-22] MEDS: Nitroglycerin 0.4 MG PATCH.TD24 TD SCH (08:06)
[2022-04-22] MEDS: Gabapentin 300 MG CAPSULE PO SCH ×3 (08:06→21:34)
[2022-04-22] MEDS: *HR* Ticagrelor 90 MG TABLET PO SCH ×2 (08:06→21:35)
[2022-04-22] MEDS: *HR* Amiodarone 200 MG TABLET PO SCH (08:06)
[2022-04-22] MEDS: Apixaban 5 MG TABLET PO SCH ×2 (08:06→21:34)
[2022-04-22] MEDS: Insulin LISPRO 300 UNITS/3 ML VIAL SUBQ SCH ×4 (08:07→21:35)
[2022-04-22] MEDS: Nystatin POWDER 30 GM BOTTLE TP SCH (08:08)
[2022-04-22] MEDS: Miconazole 2% ointment 141 APPL/141 GM TUBE TP SCH (08:08)
[2022-04-22] MEDS: *HR* OxyCODONE Immed Rel 5 MG TABLET PO PRN (17:32)
[2022-04-22] MEDS ORDERED: Insulin DETEMIR 100 UNIT/ML X5UNITS SUBQ SCH (21:00)
[2022-04-22] MEDS: ARIPiprazole 2 MG TABLET PO SCH (21:34)
[2022-04-23] MEDS: levETIRAcetam 250 MG TABLET PO SCH ×2 (08:08→21:13)
[2022-04-23] MEDS: *HR* Amiodarone 200 MG TABLET PO SCH (08:09)
[2022-04-23] MEDS: *HR* Ticagrelor 90 MG TABLET PO SCH ×2 (08:09→21:16)
[2022-04-23] MEDS: Metoprolol XL (24 HR) Succ 50 MG TAB.ER.24H PO SCH (08:09)
[2022-04-23] MEDS: Gabapentin 300 MG CAPSULE PO SCH ×3 (08:09→21:14)
[2022-04-23] MEDS: Loratadine 10 MG TABLET PO SCH (08:09)
[2022-04-23] MEDS: *HR* OxyCODONE Immed Rel 5 MG TABLET PO PRN ×2 (08:09→21:16)
[2022-04-23] MEDS: Famotidine 20 MG TABLET PO SCH (08:09)
[2022-04-23] MEDS: Zonisamide 100 MG CAPSULE PO SCH ×2 (08:10→21:15)
[2022-04-23] MEDS: Apixaban 5 MG TABLET PO SCH ×2 (08:10→21:15)
[2022-04-23] MEDS: Insulin LISPRO 300 UNITS/3 ML VIAL SUBQ SCH ×4 (08:12→21:18)
[2022-04-23] MEDS: Miconazole 2% ointment 141 APPL/141 GM TUBE TP SCH (08:12)
[2022-04-23] MEDS: Nystatin POWDER 30 GM BOTTLE TP SCH (08:12)
[2022-04-23] MEDS: Nitroglycerin 0.4 MG PATCH.TD24 TD SCH (08:13)
[2022-04-23] MEDS ORDERED: Insulin DETEMIR 100 UNIT/ML X5UNITS SUBQ ONE (13:21)
[2022-04-23] MEDS: ARIPiprazole 2 MG TABLET PO SCH (21:16)
[2022-04-23] MEDS: Insulin DETEMIR 100 UNIT/ML X5UNITS SUBQ SCH (21:17)
[2022-04-23] MEDS: Melatonin 3 MG TABLET PO PRN (21:37)
[2022-04-24] MEDS: *HR* OxyCODONE Immed Rel 5 MG TABLET PO PRN ×2 (08:35→19:53)
[2022-04-24] MEDS: Insulin LISPRO 300 UNITS/3 ML VIAL SUBQ SCH ×4 (09:32→20:59)
[2022-04-24] MEDS: Apixaban 5 MG TABLET PO SCH ×2 (09:37→20:53)
[2022-04-24] MEDS: Spironolactone 12.5 MG TABLET PO SCH (09:37)
[2022-04-24] MEDS: levETIRAcetam 250 MG TABLET PO SCH ×2 (09:37→20:53)
[2022-04-24] MEDS: Gabapentin 300 MG CAPSULE PO SCH ×3 (09:38→20:53)
[2022-04-24] MEDS: Loratadine 10 MG TABLET PO SCH (09:38)
[2022-04-24] MEDS: Famotidine 20 MG TABLET PO SCH (09:38)
[2022-04-24] MEDS: Furosemide 20 MG TABLET PO SCH (09:38)
[2022-04-24] MEDS: *HR* Amiodarone 200 MG TABLET PO SCH (09:38)
[2022-04-24] MEDS: Zonisamide 100 MG CAPSULE PO SCH ×2 (09:38→20:53)
[2022-04-24] MEDS: Metoprolol XL (24 HR) Succ 50 MG TAB.ER.24H PO SCH (09:38)
[2022-04-24] MEDS: Nitroglycerin 0.4 MG PATCH.TD24 TD SCH (09:38)
[2022-04-24] MEDS: Nystatin POWDER 30 GM BOTTLE TP SCH ×2 (09:39→20:54)
[2022-04-24] MEDS: Miconazole 2% ointment 141 APPL/141 GM TUBE TP SCH (09:39)
[2022-04-24] MEDS: *HR* Ticagrelor 90 MG TABLET PO SCH ×2 (10:37→20:53)
[2022-04-24] MEDS: Insulin DETEMIR 100 UNIT/ML X5UNITS SUBQ SCH ×2 (10:38→21:07)
[2022-04-24] MEDS: ARIPiprazole 2 MG TABLET PO SCH (20:53)
[2022-04-24] MEDS: Melatonin 3 MG TABLET PO PRN (21:09)
[2022-04-25] MEDS: *HR* OxyCODONE Immed Rel 5 MG TABLET PO PRN ×3 (00:12→21:34)
[2022-04-25] MEDS: Insulin LISPRO 300 UNITS/3 ML VIAL SUBQ SCH ×4 (08:20→21:36)
[2022-04-25] MEDS: levETIRAcetam 250 MG TABLET PO SCH ×2 (09:02→21:35)
[2022-04-25] MEDS: *HR* Amiodarone 200 MG TABLET PO SCH (09:02)
[2022-04-25] MEDS: Spironolactone 12.5 MG TABLET PO SCH (09:02)
[2022-04-25] MEDS: Famotidine 20 MG TABLET PO SCH (09:03)
[2022-04-25] MEDS: Zonisamide 100 MG CAPSULE PO SCH ×2 (09:03→21:34)
[2022-04-25] MEDS: Gabapentin 300 MG CAPSULE PO SCH ×3 (09:03→21:36)
[2022-04-25] MEDS: Loratadine 10 MG TABLET PO SCH (09:03)
[2022-04-25] MEDS: Metoprolol XL (24 HR) Succ 50 MG TAB.ER.24H PO SCH (09:03)
[2022-04-25] MEDS: *HR* Ticagrelor 90 MG TABLET PO SCH ×2 (09:03→21:36)
[2022-04-25] MEDS: Furosemide 20 MG TABLET PO SCH (09:03)
[2022-04-25] MEDS: Apixaban 5 MG TABLET PO SCH ×2 (09:03→21:35)
[2022-04-25] MEDS: Insulin DETEMIR 100 UNIT/ML X5UNITS SUBQ SCH ×2 (09:04→21:36)
[2022-04-25] MEDS: Nitroglycerin 0.4 MG PATCH.TD24 TD SCH (09:04)
[2022-04-25] MEDS: Miconazole 2% ointment 141 APPL/141 GM TUBE TP SCH (09:04)
[2022-04-25] MEDS: Nystatin POWDER 30 GM BOTTLE TP SCH ×4 (09:05→21:38)
[2022-04-25] MEDS: ARIPiprazole 2 MG TABLET PO SCH (21:34)
[2022-04-25] MEDS: Melatonin 3 MG TABLET PO PRN (21:36)
[2022-04-26] MEDS: Insulin DETEMIR 100 UNIT/ML X5UNITS SUBQ SCH (08:24)
[2022-04-26] MEDS: Insulin LISPRO 300 UNITS/3 ML VIAL SUBQ SCH ×3 (08:24→17:05)
[2022-04-26] MEDS: levETIRAcetam 250 MG TABLET PO SCH (08:25)
[2022-04-26] MEDS: Spironolactone 12.5 MG TABLET PO SCH (08:25)
[2022-04-26] MEDS: Nitroglycerin 0.4 MG PATCH.TD24 TD SCH (08:25)
[2022-04-26] MEDS: *HR* Ticagrelor 90 MG TABLET PO SCH (08:25)
[2022-04-26] MEDS: Loratadine 10 MG TABLET PO SCH (08:25)
[2022-04-26] MEDS: Famotidine 20 MG TABLET PO SCH (08:26)
[2022-04-26] MEDS: Gabapentin 300 MG CAPSULE PO SCH ×2 (08:26→15:03)
[2022-04-26] MEDS: Apixaban 5 MG TABLET PO SCH (08:26)
[2022-04-26] MEDS: *HR* Amiodarone 200 MG TABLET PO SCH (08:26)
[2022-04-26] MEDS: Metoprolol XL (24 HR) Succ 50 MG TAB.ER.24H PO SCH (08:26)
[2022-04-26] MEDS: Furosemide 20 MG TABLET PO SCH (08:26)
[2022-04-26] MEDS: Miconazole 2% ointment 141 APPL/141 GM TUBE TP SCH (08:26)
[2022-04-26] MEDS: Zonisamide 100 MG CAPSULE PO SCH (08:26)
[2022-04-26] MEDS: *HR* OxyCODONE Immed Rel 5 MG TABLET PO PRN ×2 (10:22→17:05)
[2022-04-26] MEDS: Nystatin POWDER 30 GM BOTTLE TP SCH (10:22)
[2022-04-26 11:25] LABS: Adenovirus Not Detected (Not Detect); Bordetella Pertussis Not Detected (Not Detect); Chlamydophila pneumoniae Not Detected (Not Detect); Coronavirus 229E Not Detected (Not Detect); Coronavirus HKU1 Not Detected (Not Detect); Coronavirus NL63 Not Detected (Not Detect); Coronavirus OC43 Not Detected (Not Detect); Human Metapneumovirus Not Detected (Not Detect); Human Rhinovirus/Enterovirus Not Detected (Not Detect); Influenza A Subtype 2009 H1 Not Detected (Not Detect); Influenza B Not Detected (Not Detect); Mycoplasma pneumoniae Not Detected (Not Detect); Parainfluenza Virus 1 Not Detected (Not Detect); Parainfluenza Virus 2 Not Detected (Not Detect); Parainfluenza Virus 3 Not Detected (Not Detect); Parainfluenza Virus 4 Not Detected (Not Detect); Respiratory Syncytial Virus Not Detected (Not Detect); SARS-CoV-2 Not Detected (Not Detect)
[2022-04-26] MEDS ORDERED: Moderna Covid-19 Vaccine 100MCG/0.5mL IM ONE (11:26)
[2022-04-26 16:11] VITALS: BP 118/69; PULSE 87; TEMP 98; O2SAT 97
== END 2022-04-26 18:27 | DRG 699 ==
LOC: 3ANU 09:41 → EMEROOARM 09:41 → SUATTDRO 13:01 → 3ANU 14:57 → SUATTDRO 04-09 13:17 → 3ANU 04-11 11:26
PROVIDERS: ADMIT Internal Medicine; ATTEND Hospitalist